=== PATIENT | female | born 1955 | race Caucasian/White ===

== ENCOUNTER 2016-10-17 08:54 | Outpatient (CLI) | payer OTHER ==
[~2016-10-17 08:54] MED LIST: /AUGM875TA OR; /FENT50PA TD; /HALO1T OR; /QUET25TA PO; ACET65TA OR; ARTISOL10 OU; ATIV1TAB2 OR; ATRO0.06; ATRO0.06 INH; BENA25TA4 PO; BISA10SU2 RE; CARD180T PO; CARD60TA OR; CELE40TA OR; CELE40TA PO; CHEMOTHERAPY; CHLO0.124 SSP; CHLO25TA3 PO; CLIN300C PO; CODE15TA OR; CODE15TA PO; COLA100C2 OR; COLA100C2 PO; DECADRON PO; DOCU10ELUD PO; DOXY100T OR; DOXY100T PO; FAMCICLOVIR OR; FENT100D25 TD; GABA100C PO; GAMMA GLOBULIN IV; KEFL500C PO; LANS30CA PO; LOPR50TA OR; MAGN500T2 OR; MAGN500T2 PO; MEGA40SU OR; MEGA40SU PO; MILKSUS OR; MIRALEX OR; MIRALEX PO; MUCI600T34 PO; MUCU400T2 OR; MUCU400T2 PO; Magnesium Oxide PO; PAIN325T PO; PERC5TAB8 OR; PERC7.5T12 PO; PERC7.5T8 OR; PERCOCET PO; PREV15CA OR; PREV30CA6 PO; PREVACID PO; PULM0.5S IN; PULMOZYME INH; REVL20CA PO; SENN8.6T5 OR; SILVADENE; TESS100C OR; TESS100C PO; VALCADE IV; VICO5TAB OR; XANA0.25 OR; XOPE1.252 IN; ZOMETA IV; [UNRECOGNIZED DRUG - CODE] IV; [UNRECOGNIZED DRUG - OTHER]; [UNRECOGNIZED DRUG - OTHER]; [UNRECOGNIZED DRUG - OTHER] IV; chlorthalidone PO
[2016-10-17] MEDS ORDERED: SODIUM CHLORIDE 0.9% INJ 10 ML SYR IV SCH (09:00)
[2016-10-17] MEDS ORDERED: ACETAMINOPHEN TAB 650MG DOSE (2X325MG) PO ONE (09:15)
[2016-10-17] MEDS ORDERED: IMMUNE GLOBULIN 10% 10 GM in APPROPRIATE DILUENT 1 EA IV ONE (09:15)
[2016-10-17] MEDS ORDERED: diphenhydrAMINE 25 MG CAP PO ONE (09:15)
[2016-10-17] MEDS ORDERED: IMMUNE GLOBULIN 10% 20 GM in APPROPRIATE DILUENT 1 EA IV ONE (09:15)
== END 2016-10-17 12:30 | disposition home or self-care (01) ==
LOC: M INFU 08:54
PROVIDERS: ATTEND Internal Medicine Medical Oncology
DX: C90.00 Multiple myeloma not having achieved remission (principal)
CPT/HCPCS: 96365; 96366; J1568

== ENCOUNTER → 2016-11-01 | Outpatient (REF) | payer OTHER ==
[2016-11-01 15:01] LABS: IMMUNOGLOBULIN A 44.2 MG/DL (70-400); IMMUNOGLOBULIN G 952 MG/DL (681-1648); TOTAL PROTEIN 5.9 GM/DL (6.4-8.2)
[2016-11-01 16:04] LABS: IMMUNOGLOBULIN M 6.55 MG/DL (40-230)
[2016-11-03 00:06] LABS: FREE KAPPA LIGHT CHAINS SERUM 11.24 mg/L (3.30-19.40); FREE LAMBDA LIGHT CHAINS SERUM 39.89 mg/L (5.71-26.30); KAPPA/LAMBDA RATIO SERUM 0.28 (0.26-1.65)
[2016-11-03 08:06] LABS: BETA 2 MICROGLOBULIN 1.9 mg/L (0.6-2.4); IMMUNOGLOBULIN D 58.3 mg/dL (<14.11)
[2016-11-05 12:54] LABS: ALBUMIN 3.33 GM/DL (3.29-5.55); ALBUMIN % 56.5 % (55.8-66.1); GAMMA GLOBULIN % 16.2 % (11.1-18.8)
== END | disposition home or self-care (01) ==
LOC: M LAB REF 13:21
PROVIDERS: ATTEND Internal Medicine Medical Oncology
DX: C90.00 Multiple myeloma not having achieved remission (principal)

== ENCOUNTER 2016-11-13 08:56 | Outpatient (CLI) | payer OTHER ==
[~2016-11-13] VITALS: Ht 167.6 cm; Wt 60.9 kg
[~2016-11-13 08:56] MED LIST changes: +ACETAMINOPHEN TAB 650MG DOSE (2X325MG) PO ONE; +diphenhydrAMINE 25 MG CAP PO ONE
[2016-11-13] MEDS ORDERED: IMMUNE GLOBULIN 10% 20 GM in APPROPRIATE DILUENT 1 EA IV ONE (09:00)
[2016-11-13] MEDS ORDERED: SODIUM CHLORIDE 0.9% INJ 10 ML SYR IV SCH (09:00)
[2016-11-13] MEDS ORDERED: IMMUNE GLOBULIN 10% 10 GM in APPROPRIATE DILUENT 1 EA IV ONE (10:00)
== END 2016-11-13 11:45 | disposition home or self-care (01) ==
LOC: M INFU 08:56
PROVIDERS: ATTEND Internal Medicine Medical Oncology
DX: C90.00 Multiple myeloma not having achieved remission (principal)
CPT/HCPCS: 96365; 96366; J1568

== ENCOUNTER → 2016-11-21 | Outpatient (REF) | payer OTHER ==
[~2016-11-21] MED LIST changes: -ACETAMINOPHEN TAB 650MG DOSE (2X325MG) PO ONE; -diphenhydrAMINE 25 MG CAP PO ONE
[2016-11-21 19:30] LABS: IMMUNOGLOBULIN A 40.1 MG/DL (70-400); IMMUNOGLOBULIN G 1140 MG/DL (681-1648); TOTAL PROTEIN 5.9 GM/DL (6.4-8.2)
[2016-11-21 20:17] LABS: IMMUNOGLOBULIN M < 5.3 MG/DL (40-230)
[2016-11-23 12:46] LABS: ALBUMIN 3.32 GM/DL (3.29-5.55); ALBUMIN % 56.3 % (55.8-66.1); GAMMA GLOBULIN % 19.3 % (11.1-18.8)
[2016-11-24 00:06] LABS: FREE KAPPA LIGHT CHAINS SERUM 10.65 mg/L (3.30-19.40); FREE LAMBDA LIGHT CHAINS SERUM 33.71 mg/L (5.71-26.30); KAPPA/LAMBDA RATIO SERUM 0.32 (0.26-1.65)
[2016-11-24 08:06] LABS: BETA 2 MICROGLOBULIN 1.9 mg/L (0.6-2.4); IMMUNOGLOBULIN D 32.5 mg/dL (<14.11)
== END | disposition home or self-care (01) ==
LOC: M LAB REF 16:25
PROVIDERS: ATTEND Internal Medicine Medical Oncology
DX: C90.00 Multiple myeloma not having achieved remission (principal)

== ENCOUNTER 2016-12-12 09:33 | Outpatient (CLI) | payer OTHER ==
[~2016-12-12] VITALS: Ht 167.6 cm; Wt 60.9 kg
[~2016-12-12 09:33] MED LIST changes: +ACETAMINOPHEN TAB 650MG DOSE (2X325MG) PO SCH; +IMMUNE GLOBULIN 10% 10 GM in APPROPRIATE DILUENT 1 EA IV ONE; +IMMUNE GLOBULIN 10% 20 GM in APPROPRIATE DILUENT 1 EA IV ONE; +SODIUM CHLORIDE 0.9% INJ 10 ML SYR IV SCH; +diphenhydrAMINE 25 MG CAP PO SCH
== END 2016-12-12 13:00 | disposition home or self-care (01) ==
LOC: M INFU 09:33
PROVIDERS: ATTEND Internal Medicine Medical Oncology
DX: C90.00 Multiple myeloma not having achieved remission (principal)
CPT/HCPCS: 96365; 96366; J1568

== ENCOUNTER → 2016-12-19 | Outpatient (REF) | payer OTHER ==
[~2016-12-19] MED LIST changes: -ACETAMINOPHEN TAB 650MG DOSE (2X325MG) PO SCH; -IMMUNE GLOBULIN 10% 10 GM in APPROPRIATE DILUENT 1 EA IV ONE; -IMMUNE GLOBULIN 10% 20 GM in APPROPRIATE DILUENT 1 EA IV ONE; -SODIUM CHLORIDE 0.9% INJ 10 ML SYR IV SCH; -diphenhydrAMINE 25 MG CAP PO SCH
[2016-12-19 14:50] LABS: IMMUNOGLOBULIN A 46.9 MG/DL (70-400); IMMUNOGLOBULIN G 1220 MG/DL (681-1648); TOTAL PROTEIN 6.1 GM/DL (6.4-8.2)
[2016-12-19 15:19] LABS: IMMUNOGLOBULIN M 5.68 MG/DL (40-230)
[2016-12-20 13:11] LABS: ALBUMIN % 55.7 % (55.8-66.1); GAMMA GLOBULIN % 19.6 % (11.1-18.8)
[2016-12-22 08:06] LABS: FREE KAPPA LIGHT CHAINS SERUM 12.07 mg/L (3.30-19.40); FREE LAMBDA LIGHT CHAINS SERUM 41.4 mg/L (5.71-26.30); KAPPA/LAMBDA RATIO SERUM 0.29 (0.26-1.65)
== END ==
LOC: M LAB REF 13:23
PROVIDERS: ATTEND Internal Medicine Medical Oncology
DX: C90.00 Multiple myeloma not having achieved remission (principal)

== ENCOUNTER → 2016-12-24 | Outpatient (CLI) | payer OTHER ==
[~2016-12-24] MED LIST changes: +ISOVUE-370 76% 100ML VIAL (Q9967) As Ordered ONE
--- NOTE | 2016-12-24 09:53 | REP ---
CT BRAIN WITHOUT AND WITH CONTRAST: 12/24/2016 COMPARISON: 12/27/2014, 10/16/2011. TECHNIQUE. Noncontrast images followed by infusion of 75 mL Isovue-370 and rescanning through the brain. CLINICAL HISTORY: Lytic skull lesion in a patient with known myeloma. FINDINGS: Ventricles are midline, symmetric, and their size proportionate to the mild diffuse cerebral atrophy. There is no midline shift. The basal ganglia and white matter tracts show no acute finding. There is no vascular territory infarct, intracranial hemorrhage, cerebral mass, or edema. The lytic lesion of the right parietal bone is again noted. It gain measures 4.5 x 2.5 x 4 cm in greatest diameter. There are multiple other smaller lesions in the extreme vertex that appearance is unchanged. Inner table is thinned and eroded. Study again shows some very slight mass effect on the adjacent parietal lobe. There is no intracranial hemorrhage. I do not see significant enhancement of the lesion. The adjacent scalp was grossly intact. Mastoids, sinuses, and skull base without acute findings. The cerebellum and cisterna magna, as well as the brainstem are grossly intact. Basal cisterns intact. I do not see any abnormal enhancement. The vascularity is grossly intact on the contrast images, and there is no abnormal meningeal enhancement or gyriform enhancement. Orbits and contents grossly intact. IMPRESSION: 1. There is a lytic parietal bone lesion in the right hemisphere 4.5 x 4 x 2.5 cm, this is grossly unchanged and has mild mass effect on the adjacent parietal lobe. There are other scattered lytic lesions in the vertex of the skull. These were all much smaller than the main lesion. No intracranial hemorrhage, infarct, edema, or mass. No abnormal enhancement. Essentially stable examination. Signed by Delmer Landon MD 12/24/2016 05:08 P
== END ==
LOC: M RAD 08:10
PROVIDERS: ATTEND Psychiatry & Neurology Neurology
DX: R93.0 Abnormal findings on diagnostic imaging of skull and head, not elsewhere classified (principal)
CPT/HCPCS: 70470; Q9967

== ENCOUNTER 2017-01-16 08:35 | Outpatient (CLI) | payer OTHER ==
[~2017-01-16] VITALS: Ht 167.6 cm; Wt 60.9 kg
[~2017-01-16 08:35] MED LIST changes: +ACETAMINOPHEN TAB 650MG DOSE (2X325MG) PO SCH; +diphenhydrAMINE 25 MG CAP PO SCH
[2017-01-16] MEDS ORDERED: SODIUM CHLORIDE 0.9% INJ 10 ML SYR IV SCH (09:00)
[2017-01-16] MEDS ORDERED: IMMUNE GLOBULIN 10% 10 GM in APPROPRIATE DILUENT 1 EA IV ONE (09:00)
[2017-01-16] MEDS ORDERED: IMMUNE GLOBULIN 10% 20 GM in APPROPRIATE DILUENT 1 EA IV ONE (09:00)
== END 2017-01-16 12:00 | disposition home or self-care (01) ==
LOC: M INFU 08:35
PROVIDERS: ATTEND Internal Medicine Medical Oncology
DX: C90.00 Multiple myeloma not having achieved remission (principal)
CPT/HCPCS: 96365; 96366; J1568

== ENCOUNTER → 2017-01-16 | Outpatient (REF) | payer OTHER ==
[~2017-01-16] MED LIST changes: -ISOVUE-370 76% 100ML VIAL (Q9967) As Ordered ONE
[2017-01-16 14:21] LABS: IMMUNOGLOBULIN A 46.5 MG/DL (70-400); IMMUNOGLOBULIN G 784 MG/DL (681-1648); TOTAL PROTEIN 5.9 GM/DL (6.4-8.2)
[2017-01-16 14:49] LABS: IMMUNOGLOBULIN M < 5.3 MG/DL (40-230)
[2017-01-17 14:03] LABS: ALBUMIN 3.39 GM/DL (3.29-5.55); ALBUMIN % 57.4 % (55.8-66.1); GAMMA GLOBULIN % 13.5 % (11.1-18.8)
[2017-01-18 08:06] LABS: BETA 2 MICROGLOBULIN 1.7 mg/L (0.6-2.4); FREE KAPPA LIGHT CHAINS SERUM 10.31 mg/L (3.30-19.40); FREE LAMBDA LIGHT CHAINS SERUM 42.88 mg/L (5.71-26.30); KAPPA/LAMBDA RATIO SERUM 0.24 (0.26-1.65)
== END ==
LOC: M LAB REF 12:47
PROVIDERS: ATTEND Internal Medicine Medical Oncology
DX: C90.00 Multiple myeloma not having achieved remission (principal)

== ENCOUNTER → 2017-02-18 | Outpatient (REF) | payer OTHER ==
[~2017-02-18] MED LIST changes: -ACETAMINOPHEN TAB 650MG DOSE (2X325MG) PO SCH; -diphenhydrAMINE 25 MG CAP PO SCH
[2017-02-18 14:14] LABS: IMMUNOGLOBULIN A 56.3 MG/DL (70-400); IMMUNOGLOBULIN G 825 MG/DL (681-1648)
[2017-02-18 15:14] LABS: IMMUNOGLOBULIN M < 5.3 MG/DL (40-230)
[2017-02-21 00:06] LABS: BETA 2 MICROGLOBULIN 2.4 mg/L (0.6-2.4); FREE KAPPA LIGHT CHAINS SERUM 11.2 mg/L (3.30-19.40); FREE LAMBDA LIGHT CHAINS SERUM 100.65 mg/L (5.71-26.30); KAPPA/LAMBDA RATIO SERUM 0.11 (0.26-1.65)
== END ==
LOC: M LAB REF 12:50
PROVIDERS: ATTEND Internal Medicine Medical Oncology
DX: C90.00 Multiple myeloma not having achieved remission (principal)

== ENCOUNTER 2017-02-22 08:54 | Outpatient (CLI) | payer OTHER ==
[2017-02-22] MEDS ORDERED: SODIUM CHLORIDE 0.9% INJ 10 ML SYR IV SCH (09:00)
[2017-02-22] MEDS ORDERED: diphenhydrAMINE 25 MG CAP PO ONE (09:15)
[2017-02-22] MEDS ORDERED: IMMUNE GLOBULIN 10% 10GM 100ML 10 GM in APPROPRIATE DILUENT 1 EA IV ONE (09:15)
[2017-02-22] MEDS ORDERED: ACETAMINOPHEN TAB 650MG DOSE (2X325MG) PO ONE (09:15)
[2017-02-22] MEDS ORDERED: IMMUNE GLOBULIN 10% 20GM 200ML 20 GM in APPROPRIATE DILUENT 1 EA IV ONE (09:15)
== END 2017-02-22 13:00 | disposition home or self-care (01) ==
LOC: M INFU 08:54
PROVIDERS: ATTEND Internal Medicine Medical Oncology
DX: C90.00 Multiple myeloma not having achieved remission (principal); Z79.891 Long term (current) use of opiate analgesic; Z79.899 Other long term (current) drug therapy
CPT/HCPCS: 96365; 96366; J1569

== ENCOUNTER 2017-02-27 12:54 | Inpatient (IN) | payer OTHER ==
[~2017-02-27] VITALS: Ht 144.8 cm; Wt 52.3 kg
[2017-02-27 14:00] LABS: BASO % 0.3 % (0.0-1.0); EOS # 0.1 K/mm3 (0.0-0.50); EOS % 0.9 % (0.0-3.0); LARGE UNSTAINED CELL % 0.3 % (0.0-4.0); LYMPH # 0.2 K/mm3 (1.5-4.5); MEAN CORPUSCULAR HGB CONC 31.6 g/dl (32.0-36.5); MEAN CORPUSCULAR VOLUME 94.8 fl (80.0-96.0); MONO # 0.1 K/mm3 (0.0-0.8); MONO % 0.9 % (0.0-5.0); NEUTROPHILS # 6.5 K/mm3 (1.8-7.7); NEUTROPHILS % 94.7 % (36.0-66.0); PLATELET COUNT, AUTOMATED 166 k/mm3 (150-450); RED CELL DISTRIBUTION WIDTH 14.2 % (11.5-14.5); WHITE BLOOD COUNT 6.9 K/mm3 (4.0-10.0)
--- NOTE | 2017-02-27 14:08 | REP ---
Clinical: Fever. Comparison: 04/18/2016. Findings: Examination is limited by portable technique, positioning, and underpenetration. Old healed bilateral rib fractures are again identified along with chronic interstitial changes. Mediastinum and cardiac silhouette are stable. Central venous catheter with tip in the SVC again noted. No obvious acute consolidation, effusion, or pneumothorax. Impression: Chronic stable changes. No obvious acute cardiopulmonary process. Signed by Augustine Bennett MD 02/27/2017 02:00 P
[2017-02-27] MEDS ORDERED: NS IV ONE (14:30)
[2017-02-27] MEDS ORDERED: DILUENT IV ONE (14:30)
[2017-02-27] MEDS ORDERED: ACETAMINOPHEN 325 MG TAB PO ONE ×2 (14:45)
[2017-02-27] MEDS ORDERED: ACETAMINOPHEN 325 MG TAB As Ordered ONE (14:46)
[2017-02-27] MEDS ORDERED: CEFEPIME HCL 2 GM in D5W MINI-BAG PLUS 50 ML IV ONE (15:00)
[2017-02-27 16:47] LABS: ALBUMIN 2.6 GM/DL (3.2-5.2); ALBUMIN/GLOBULIN RATIO 0.87 (1.00-1.93); ALKALINE PHOSPHATASE 42 U/L (45-117); ALT/SGPT 12 U/L (12-78); ANION GAP 3 MEQ/L (8-16); AST/SGOT 12 U/L (15-37); BILIRUBIN,DIRECT < 0.1 MG/DL (0.0-0.2); BILIRUBIN,TOTAL 0.3 MG/DL (0.2-1.0); BLOOD UREA NITROGEN 15 MG/DL (7-18); CALCIUM LEVEL 7.6 MG/DL (8.5-10.1); CARBON DIOXIDE LEVEL 31 MEQ/L (21-32); CHLORIDE LEVEL 105 MEQ/L (98-107); CREATININE FOR GFR 0.86 MG/DL (0.55-1.02); GLOMERULAR FILTRATION RATE > 60.0 (>51); GLUCOSE, FASTING 114 MG/DL (70-105); POTASSIUM SERUM 3.9 MEQ/L (3.5-5.1); SODIUM LEVEL 139 MEQ/L (136-145); TOTAL PROTEIN 5.6 GM/DL (6.4-8.2)
[2017-02-27] MEDS ORDERED: ONDANSETRON 4MG/2ML VIAL (J2405) IV PRN (17:15)
[2017-02-27] MEDS ORDERED: fentaNYL 100 MCG/HR PATCH TOP ONE (17:15)
[2017-02-27] MEDS ORDERED: FENTANYL REMOVAL DOCUMENTATION MISC XX SCH (17:15)
[2017-02-27] MEDS ORDERED: PERCOCET 5MG/325MG TAB PO PRN ×2 (17:15)
[2017-02-27] MEDS ORDERED: MAGN400T5 PO (17:56)
[2017-02-27] MEDS ORDERED: SERO1TAB3 PO (17:56)
[2017-02-27] MEDS ORDERED: DEXA4TA PO (17:56)
[2017-02-27] MEDS ORDERED: ONDA1TAB15 PO (17:56)
[2017-02-27] MEDS ORDERED: GABA-279 PO (17:56)
[2017-02-27] MEDS ORDERED: [UNRECOGNIZED DRUG - CODE] IV (17:56)
[2017-02-27] MEDS ORDERED: REVL10CA2 PO (17:56)
[2017-02-27] MEDS ORDERED: COLA100C3 PO (17:56)
[2017-02-27] MEDS ORDERED: ASPI1TAB PO (17:56)
[2017-02-27] MEDS ORDERED: GAMMA GLOBULIN IV (17:56)
[2017-02-27] MEDS ORDERED: LANS30CA PO (17:56)
[2017-02-27] MEDS ORDERED: DURA100D2 TD (17:56)
[2017-02-27] MEDS ORDERED: METO50TA2 PO (17:56)
[2017-02-27] MEDS ORDERED: PERI0.126 SSP (17:56)
[2017-02-27] MEDS ORDERED: BUDE0.5S6 INH (17:56)
[2017-02-27] MEDS ORDERED: GUAI1TAB PO (17:56)
[2017-02-27] MEDS ORDERED: LEVA12INH INH (17:56)
[2017-02-27] MEDS ORDERED: PERC10TA17 PO (17:56)
[2017-02-27] MEDS ORDERED: CITA40TA4 PO (17:56)
[2017-02-27] MEDS ORDERED: LEVALBUTEROL 1.25 MG/0.5 ML CONCENTRATE NEB INH PRN (19:15)
[2017-02-27] MEDS ORDERED: QUEtiapine FUMARATE 25 MG TAB PO PRN (19:15)
[2017-02-27 19:45] VITALS: BP 96/58
[2017-02-27] MEDS: METOPROLOL TART 12.5 MG PER 1/2 TAB PO SCH (19:53)
--- NOTE | 2017-02-27 20:50 | HPE ---
DATE OF ADMISSION: 02/27/2017 PRIMARY CARE PROVIDER: Dr. Corby Bahnea [facility]. ONCOLOGY, Dr. Christa Howell, [facility], Dr. Zambrano, [facility] CHIEF COMPLAINT: Patient presented today in emergency room for an episode of chills and shakes in the house this afternoon at around 1:00. 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 History of [place] chorea complicating treatment during initial presentation. History of flail chest requiring permanent tracheostomy during initial presentation for multiple myeloma, history of extensive skeletal involvement, hypercalcemia, renal failure during the initial diagnosis of multiple myeloma, hypertension osteoporosis, history of right upper extremity deep vein thrombosis in 2010 status post six months of Coumadin. 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 History of actinomycosis of the jaw, which was treated before. HISTORY OF PRESENT ILLNESS: This is a 61-year-old female with the above complicated past medical history who recently had a secondary infection of the necrotic jaw and was treated a 10 day course of Bactrim DS, which she finished on the February. This afternoon she developed an episode of shakes and chills so she was brought to the emergency room. In the emergency department (ED) she was found to febrile to 102.4. Patient's UA was very dirty containing innumerable WBCs, and lactic acid was elevated to 2.2. Patient also recently had bone marrow biopsy done on the February at [facility] by Dr. Zambrano for rising levels of IgD in the blood and a new small in spike which was concerning to the oncologist for recurrence of her myeloma. In view of her chronic severe immunosuppressed state, patient is being admitted for urinary tract infection to the hospitalist service. PAST SURGICAL HISTORY: 1. Percutaneous endoscopic gastrostomy tube insertion placement and removal. Status post tracheostomy. 2. History of eye surgery. SOCIAL HISTORY: Does not drink, abuse alcohol or smoke. ALLERGIES: Patient is allergic to PENICILLIN, <<7:52>> LORAZEPAM, ALPRAZOLAM. FAMILY HISTORY: Nothing significant. REVIEW OF SYSTEMS: Patient denied any cough or phlegm . Denied any abdominal pain, nausea, vomiting or diarrhea. Denied any dysuria, hematuria or difficulty in urination. Patient does have chronic pain and for which she is on chronic pain medications. PHYSICAL EXAMINATION: VITAL SIGNS: Temperature 99.9, pulse 78m respiratory rate 18, blood pressure 97/55, pulse oximetry 94% on room air. GENERAL: Patient awake, alert, oriented times three laying down in bed in no acute distress. HEENT: Normocephalic, atraumatic. Has a tracheostomy in place. CHEST: There is severe kyphosed scoliosis present, otherwise clear to auscultation. Bilateral breath sounds. CARDIOVASCULAR: S1, S2 regular. There is a systolic murmur present. ABDOMEN: Soft, non-tender, bowel sounds present. EXTREMITIES: No edema. LABORATORY DATA: WBC 6.9, hemoglobin 10.7, platelet 1626, sodium 139, potassium 3.9, chloride 105, bicarbonate 31, BUN 15, creatinine 0.8, glucose 114, lactate 2.2, follow up lactate was 1.9, calcium 12.6. Liver function tests are normal. IMAGING: Chest x-ray: Chronic stable changes. No obvious acute cardiopulmonary process. UA shows innumerable WBCs, 3+ leukocyte esterase, 1+ blood. Urinary nitrate positive. Urine culture and blood cultures have been ordered. ASSESSMENT AND PLAN: This is a 61-year-old female admitted for urinary tract infection. PLAN: For urinary tract infection we will continue the patient on ceftriaxone. Await urine culture and adjust antibiotics accordingly. IgD lambda multiple myeloma. Patient follows with oncologist, Dr. Zambrano at [facility], as well as Dr. Christa Howell here. Patient is currently on chemotherapy with Revlimid, dexamethasone, elotuzumab. Recently had bone marrow biopsy on 02/25/2017. The results have been reviewed and copy of the results are in the chart. Severe restrictive lung disease due to severe kyphosed scoliosis, has tracheostomy in place. Will continue with tracheostomy care. Chronic pain. We will continue with home regimen of pain medications. Severe immunodeficiency and hypogammaglobinemia. Patient gets IVIg once a month. History of hypertension. However at present, patients blood pressure is low-normal. So, will give lower dose of metoprolol with hold parameters. Depression. We will continue with citalopram and Seroquel. Deep vein thrombosis prophylaxis has been ordered. <<13:15>> prophylaxis has been ordered.
[2017-02-27] MEDS ORDERED: fentaNYL 100 MCG/HR PATCH TD SCH (21:00)
[2017-02-27] MEDS: ASPIRIN 81 MG ENTERIC TAB PO SCH (21:47)
[2017-02-27] MEDS: guaiFENesin ER 600 MG TAB PO SCH (21:47)
[2017-02-27] MEDS: GABAPENTIN 100 MG CAP PO SCH (21:47)
[2017-02-27] MEDS: NS 1,000 ML IV SCH (21:47)
[2017-02-27] MEDS: SENOKOT S TAB PO SCH (21:47)
[2017-02-27] MEDS: CHLORHEXIDINE GLUCONATE 0.12 % 15ML UDC (PERIDEX ORAL RINSE) SSP SCH (22:17)
[2017-02-28] MEDS ORDERED: NORCO, ANEXSIA 5/325MG TABLET (HYDROcodone/ACETAMINOPHEN) PO PRN (03:30)
[2017-02-28] MEDS: PERCOCET 5MG/325MG TAB PO PRN ×3 (03:41→21:06)
[2017-02-28 06:00] VITALS: BP 99/52
[2017-02-28 06:19] LABS: BASO % 0.7 % (0.0-1.0); EOS # 0.1 K/mm3 (0.0-0.50); EOS % 2.5 % (0.0-3.0); LYMPH # 0.3 K/mm3 (1.5-4.5); LYMPH % 9.3 % (24.0-44.0); MEAN CORPUSCULAR HEMOGLOBIN 30.6 pg (27.0-33.0); MEAN CORPUSCULAR HGB CONC 32.7 g/dl (32.0-36.5); MEAN CORPUSCULAR VOLUME 93.6 fl (80.0-96.0); MONO # 0.2 K/mm3 (0.0-0.8); MONO % 5.4 % (0.0-5.0); NEUTROPHILS % 81.1 % (36.0-66.0); PLATELET COUNT, AUTOMATED 100 k/mm3 (150-450); RED CELL DISTRIBUTION WIDTH 14.4 % (11.5-14.5); WHITE BLOOD COUNT 3.6 K/mm3 (4.0-10.0)
[2017-02-28 06:37] LABS: ANION GAP 6 MEQ/L (8-16); BLOOD UREA NITROGEN 12 MG/DL (7-18); CALCIUM LEVEL 7.6 MG/DL (8.5-10.1); CARBON DIOXIDE LEVEL 25 MEQ/L (21-32); CHLORIDE LEVEL 109 MEQ/L (98-107); CREATININE FOR GFR 0.73 MG/DL (0.55-1.02); GLOMERULAR FILTRATION RATE > 60.0 (>51); GLUCOSE, FASTING 80 MG/DL (70-105); POTASSIUM SERUM 3.8 MEQ/L (3.5-5.1); SODIUM LEVEL 140 MEQ/L (136-145)
[2017-02-28] MEDS: METOPROLOL TART 12.5 MG PER 1/2 TAB PO SCH ×2 (09:00→21:00)
[2017-02-28] MEDS: SENOKOT S TAB PO SCH ×2 (09:00→21:00)
[2017-02-28] MEDS: fentaNYL 100 MCG/HR PATCH TD SCH (09:00)
[2017-02-28] MEDS: MAGNESIUM OXIDE 400 MG TAB (MAG-OX) PO SCH (09:44)
[2017-02-28] MEDS: GABAPENTIN 100 MG CAP PO SCH ×2 (09:44→21:07)
[2017-02-28] MEDS: CitaloPRAM (CeleXA) 20 MG TAB PO SCH (09:44)
[2017-02-28] MEDS: NS 1,000 ML IV SCH (09:45)
[2017-02-28] MEDS: CHLORHEXIDINE GLUCONATE 0.12 % 15ML UDC (PERIDEX ORAL RINSE) SSP SCH ×2 (09:45→21:07)
[2017-02-28] MEDS: guaiFENesin ER 600 MG TAB PO SCH ×2 (09:45→21:06)
--- NOTE | 2017-02-28 13:27 | IPNPDOC ---
Subjective Date Seen The patient was seen on 02/28/17. Subjective Chief Complaint/HPI The patient is a 61-year-old female admitted with a reason for visit of Multiple Myeloma; Uti. General: Denies: ROS Unobtainable, Chills, Night Sweats, Fatigue, Malaise, Normal Appetite, Other Symptoms Constitutional: Denies: Chills, Fever, Malaise, Night Sweats, Weakness, Fatigue , Weight Loss, Lethargy, Other Eyes: Denies: Pain, Vision change, Conjunctivae inflammation, Eyelid inflammation, Redness, Other ENT: Denies: Head Aches, Ear Pain, Dysphagia, Sinus Congestion, Post Nasal Drip , Sore Throat, Epistaxis, Other Symptoms Skin: Denies: Rash, Lesions, Jaundice, Bruising, Itching, Dry, Breakdown, Nail Changes, Other Pulmonary: Denies: Dyspnea, Cough, Pleuritic Chest Pain, Other Symptoms Cardiovascular: Denies: Chest Pain, Palpitations, Orthopnea, Paroxysmal Noc. Dyspnea, Edema, Lt Headedness, Other Symptoms Gastrointestinal: Denies: Nausea, Vomiting, Abdominal Pain, Diarrhea, Constipation, Melena, Hematochezia, Other Symptoms Genitourinary: Denies: Dysuria, Frequency, Incontinence, Hematuria, Retention, Other Symptoms Objective Physical Examination General Exam: Positive: Alert, Cooperative, No Acute Distress Eye Exam: Positive: PERRLA, Conjunctiva & lids normal, EOMI ENT Exam: Positive: Atraumatic Chest Exam: Positive: Clear to auscultation, Normal air movement Heart Exam: Positive: Rate Normal, Regular Rhythm, Murmurs Abdomen Exam: Positive: Normal bowel sounds, Soft, Negative: Tenderness Extremity Exam: Positive: Other (severe kyphosis), Negative: Edema Psych Exam: Positive: Oriented x 3 Assessment /Plan Problems (1) Bacteremia Status: Acute Discussed With: Patient Problem Specific Plan: Monitor Clinically, Repeat Labs Problem Text: Continue with cefepime. 2/2 + G- rods, repeat cultures pending (2) Multiple myeloma Status: Chronic Discussed With: Certified Orthoptist, Patient Problem Specific Plan: Consult Specialist, Monitor Clinically, Repeat Labs Problem Text: IgD lambda MM, follows Dr. Zambrano at [place], and Dr. Howell Recent BM Bx noted - 02/25/17 Currently receiving chemo - Revlimid, elotuzumab, dexamethasone (3) Hypogammaglobulinemia Status: Chronic Discussed With: Patient Problem Specific Plan: Monitor Clinically Problem Text: Receives monthly IVIG infusions (4) UTI (urinary tract infection) Status: Acute Discussed With: Patient Problem Specific Plan: Monitor Clinically, Repeat Labs Problem Text: Cultures pending. Receiving cefepime as per bacteremia (5) Chronic pain Status: Chronic Discussed With: Patient Problem Specific Plan: Monitor Clinically Problem Text: Home fentanyl patch on hold for now given low blood pressures patient states typical SBP in the high 90s Can resume if needed, or adjust orals (6) Restrictive lung disease Status: Chronic Discussed With: Patient Problem Specific Plan: Monitor Clinically Problem Text: Secondary to severe kyphosis, s/p trach - continue trach care complicated with rib fx, hx flail chest s/p trach (7) Depression Status: Chronic Discussed With: Patient Problem Specific Plan: Monitor Clinically Problem Text: continue citalopram and seroquel (8) Osteonecrosis Status: Acute Discussed With: Patient Problem Specific Plan: Monitor Clinically Problem Text: 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 - after 2 years Rx zoledronic acid [id number] Hx actinomycosis of mandible (9) HTN (hypertension) Status: Chronic Discussed With: Patient Problem Specific Plan: Monitor Clinically Problem Text: home antihypertensives currently on hold secondary to hypotension (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 Discussed With: Patient Problem Specific Plan: Monitor Clinically Problem Text: Secondary to prolonged intubation with permanent trach (11) DVT (deep venous thrombosis) Status: Resolved Problem Text: History of RUE DVT - 2010 s/p coumadin x 6 months Plan/VTE VTE Prophylaxis Ordered?: Yes Plan IVF: Decrease Diet: Continue Current Activity: Continue Current Medications: Start Antibiotics Diagnostics: Repeat Labs in AM, Obtain Cultures Anticipated Discharge: Home VS, I&O, 24H, Adriane Vital Signs/I&O Vital Signs Date Time Temp Pulse Resp B/P (MAP) Pulse Ox O2 Delivery O2 Flow Rate FiO2 02/28/17 10:50 18 02/28/17 06:00 97.3 73 99/52 (68) 94 Room Air I&O- Last 24 Hours up to 6 AM 02/28/17 06:00 Intake Total 675 ml Output Total 300 ml Balance 375 ml Laboratory Data 24H LABS Laboratory Tests 2 02/27/17 13:13: White Blood Count 6.9, Red Blood Count 3.58L, Hemoglobin 10.7L, Hematocrit 33.9L , Mean Corpuscular Volume 94.8, Mean Corpuscular Hemoglobin 30.0, Mean Corpuscular Hemoglobin Concent 31.6L, Red Cell Distribution Width 14.2, Platelet Count 166, Neutrophils (%) (Auto) 94.7H, Lymphocytes (%) (Auto) 3.0L, Monocytes (%) (Auto) 0.9, Eosinophils (%) (Auto) 0.9, Basophils (%) (Auto) 0.3, Neutrophils # (Auto) 6.5, Lymphocytes # (Auto) 0.2L, Monocytes # (Auto) 0.1, Eosinophils # (Auto) 0.1, Basophils # (Auto) 0.0, Large Unclassified Cells % 0.3 , Large Unclassified Cells # 0.0, Lactic Acid Level 2.2*H 02/27/17 15:00: Urine Appearance CLOUDYH, Urine Color YELLOW, Urine pH 6.0, Urine Specific [place] 1.015, Urine Protein 1+H, Urine Glucose (UA) NEGATIVE, Urine Ketones NEGATIVE, Urine Urobilinogen 0.2, Urine Bilirubin NEGATIVE, Urine Leukocyte Esterase 3+H, Urine Blood 1+H, Urine Nitrite POSITIVE, Urine WBC (Auto) TNTCH, Urine RBC (Auto) 10H, Urine Hyaline Casts (Auto) 0, Urine Bacteria (Auto) 3+H, Urine Squamous Epithelial Cells 0, Urine Mucus (Auto) SMALL, Urine Sperm (Auto) 02/27/17 16:12: Anion Gap 3L, Glomerular Filtration Rate > 60.0, Calcium Level 7.6L, Aspartate Amino Transf (AST/SGOT) 12L, Alanine Aminotransferase (ALT/SGPT) 12, Alkaline Phosphatase 42L, Total Bilirubin 0.3, Direct Bilirubin < 0.1, Total Protein 5.6L , Albumin 2.6L, Albumin/Globulin Ratio 0.87L 02/27/17 17:55: Lactic Acid Followup at 4 Hours 1.9 02/28/17 05:57: White Blood Count 3.6L, Red Blood Count 2.72L, Hemoglobin 8.3#L, Hematocrit 25.5L, Mean Corpuscular Volume 93.6, Mean Corpuscular Hemoglobin 30.6, Mean Corpuscular Hemoglobin Concent 32.7, Red Cell Distribution Width 14.4, Platelet Count 100L, Neutrophils (%) (Auto) 81.1H, Lymphocytes (%) (Auto) 9.3L, Monocytes (%) (Auto) 5.4H, Eosinophils (%) (Auto) 2.5, Basophils (%) (Auto) 0.7 , Neutrophils # (Auto) 3.0, Lymphocytes # (Auto) 0.3L, Monocytes # (Auto) 0.2, Eosinophils # (Auto) 0.1, Basophils # (Auto) 0.0, Large Unclassified Cells % 1.0 , Large Unclassified Cells # 0.0, Anion Gap 6L, Glomerular Filtration Rate > 60.0, Blood Urea Nitrogen 12, Creatinine 0.73, Sodium Level 140, Potassium Level 3.8, Chloride Level 109H, Carbon Dioxide Level 25, Calcium Level 7.6L CBC/BMP Laboratory Tests 02/27/17 13:13 Red Blood Count 3.58 L, Mean Corpuscular Volume 94.8, Mean Corpuscular Hemoglobin 30.0, Mean Corpuscular Hemoglobin Concent 31.6 L, Red Cell Distribution Width 14.2, Neutrophils (%) (Auto) 94.7 H, Lymphocytes (%) (Auto) 3.0 L, Monocytes (%) (Auto) 0.9, Eosinophils (%) (Auto) 0.9, Basophils (%) (Auto ) 0.3, Neutrophils # (Auto) 6.5, Lymphocytes # (Auto) 0.2 L, Monocytes # (Auto) 0.1, Eosinophils # (Auto) 0.1, Basophils # (Auto) 0.0 02/27/17 16:12 02/28/17 05:57 Red Blood Count 2.72 L, Mean Corpuscular Volume 93.6, Mean Corpuscular Hemoglobin 30.6, Mean Corpuscular Hemoglobin Concent 32.7, Red Cell Distribution Width 14.4, Neutrophils (%) (Auto) 81.1 H, Lymphocytes (%) (Auto) 9.3 L, Monocytes (%) (Auto) 5.4 H, Eosinophils (%) (Auto) 2.5, Basophils (%) ( Auto) 0.7, Neutrophils # (Auto) 3.0, Lymphocytes # (Auto) 0.3 L, Monocytes # ( Auto) 0.2, Eosinophils # (Auto) 0.1, Basophils # (Auto) 0.0, Calcium Level 7.6 L Microbiology Microbiology 02/28/17 Blood Culture, Received Pending 02/27/17 Blood Culture - Preliminary, Resulted 02/27/17 Blood Culture - Preliminary, Resulted 02/27/17 Influenza Virus Type A Antigen - Final, Complete 02/27/17 Influenza Virus Type B Antigen - Final, Complete 02/27/17 Urine Culture, Received Pending KATE ADHIKARI MD February 28, 2017 13:27
[2017-02-28 14:00] VITALS: BP 107/55
[2017-02-28] MEDS ORDERED: CEFEPIME HCL 2 GM in D5W MINI-BAG PLUS 50 ML IV SCH (15:00)
[2017-02-28] MEDS: ACETAMINOPHEN TAB 650MG DOSE (2X325MG) PO PRN (16:10)
[2017-02-28] MEDS: FENTANYL REMOVAL DOCUMENTATION MISC XX SCH (17:00)
--- NOTE | 2017-02-28 17:55 | CR ---
DATE OF CONSULTATION: 02/28/2017 Medical oncology/hematology inpatient consult. Dr. Ezio Min requested hematology/oncology consult for medical oncology management Marine Hawthorne is a 61-year-old woman with a history of IgD lambda, multiple myeloma diagnosed in 2009, currently on extended second-line therapy with elotuzumab / lenalidomide / dexamethasone supported by gammaglobulin every 4 weeks. She is admitted now with gram-negative sepsis defervesced on cefepime after developing rapid onset chills yesterday. She has a personal history of osteonecrosis of the jaw (ONJ) and recently was started on doxycycline by her primary care doctor for a suspected localized recurrence. She had also recently been seen at [facility] by Dr. Wliber Zambrano, bone marrow biopsy performed showing 4% plasma cell involvement. Though this was low burden of disease in the marrow, peripheral rising free lambda, IgD immunoglobulin, and new M spike on SPEP have all suggested progression of disease. In addition to the above mentioned drugs Marine is maintained on dexamethasone prescribed 8 mg by mouth weekly, she has been taking 10 mg by mouth weekly. Today she reports feeling generally better. She is tired. She received antibiotics earlier. Her Ezekiel has gone home. Blood cultures have grown out gram-negative rods. She is on isolation until speciation is completed. She denies any current shaking chills. She has been up and out of bed to go to the bathroom. She has no acute focal musculoskeletal pain, just some generalized back pain occasionally. Physical exam deferred. CURRENT VITAL SIGNS: Temperature 98.4, blood pressure 107/55, heart rate 74, respiratory rate 18, oxygen saturation 95%. LABORATORY DATA: WBC 3.6, hemoglobin 8.3, hematocrit 25.5, platelets 100, absolute neutrophil count 3000, creatinine 0.7, lactic acid on 02/27/2017 was 2.2, albumin 2.6, calcium appropriately corrects to 7.6. IMPRESSION: IgG multiple myeloma in early relapse with rising peripheral blood free light chains, M spike, and IgD with 4% plasma cells on recent bone marrow biopsy, now hospitalized with gram-negative sepsis, presenting with fever, chills, lactic acidosis. Defervesced on cefepime. PLAN/RECOMMENDATIONS: 1. According to Dr. Zambrano at [facility] ([facility]), Marine will be presented with several options for next line of treatment. For the present she should be off her active myeloma treatment with the exception of dexamethasone which, because of long-term maintenance, should be continued at the rate of 8-10 mg by mouth weekly. She also receives gammaglobulin every 4 weeks. With apologies I do not have the date of her left IVIG infusion but can obtain this tomorrow. Marine's also a good historian. I agree with current management of her sepsis. 2. Transfuse to maintain hemoglobin greater than 7 leukoreduced irradiated product. 3. Marine would like to postpone next week's RPCI appointment. I will coordinate that with Dr. Zambrano. 4. Acute new musculoskeletal pain should be investigated with plain x-rays but currently Marine is clinically stable from the myeloma standpoint. She is in a generalized relapse heralded by labs but largely asymptomatic except for left hip avascular necrosis (AVN) associated pain and occasional back discomfort. I will continue to follow intermittently as needed.
[2017-02-28] MEDS: ASPIRIN 81 MG ENTERIC TAB PO SCH (21:06)
[2017-02-28 22:00] VITALS: BP 123/79
[2017-03-01] MEDS: CEFEPIME HCL 2 GM in D5W MINI-BAG PLUS 50 ML IV SCH ×2 (02:49→15:53)
[2017-03-01] MEDS: NS 1,000 ML IV SCH (02:49)
[2017-03-01] MEDS: PERCOCET 5MG/325MG TAB PO PRN ×5 (04:17→22:25)
[2017-03-01 06:00] VITALS: BP 125/74
[2017-03-01 06:20] LABS: BASO % 0.9 % (0.0-1.0); EOS # 0.1 K/mm3 (0.0-0.50); EOS % 3.3 % (0.0-3.0); LARGE UNSTAINED CELL # 0.1 K/mm3 (0.0-0.4); LYMPH # 0.6 K/mm3 (1.5-4.5); LYMPH % 12.7 % (24.0-44.0); MEAN CORPUSCULAR HEMOGLOBIN 30.6 pg (27.0-33.0); MEAN CORPUSCULAR HGB CONC 32.1 g/dl (32.0-36.5); MEAN CORPUSCULAR VOLUME 95.5 fl (80.0-96.0); MONO # 0.3 K/mm3 (0.0-0.8); MONO % 6.6 % (0.0-5.0); NEUTROPHILS # 3.2 K/mm3 (1.8-7.7); NEUTROPHILS % 74.5 % (36.0-66.0); PLATELET COUNT, AUTOMATED 109 k/mm3 (150-450); RED CELL DISTRIBUTION WIDTH 14.5 % (11.5-14.5); WHITE BLOOD COUNT 4.3 K/mm3 (4.0-10.0)
[2017-03-01 06:34] LABS: ANION GAP 5 MEQ/L (8-16); BLOOD UREA NITROGEN 11 MG/DL (7-18); CALCIUM LEVEL 7.5 MG/DL (8.5-10.1); CARBON DIOXIDE LEVEL 24 MEQ/L (21-32); CHLORIDE LEVEL 111 MEQ/L (98-107); CREATININE FOR GFR 0.69 MG/DL (0.55-1.02); GLOMERULAR FILTRATION RATE > 60.0 (>51); GLUCOSE, FASTING 73 MG/DL (70-105); POTASSIUM SERUM 3.6 MEQ/L (3.5-5.1); SODIUM LEVEL 140 MEQ/L (136-145)
[2017-03-01] MEDS: CitaloPRAM (CeleXA) 20 MG TAB PO SCH (08:47)
[2017-03-01] MEDS: SENOKOT S TAB PO SCH ×3 (08:47→21:00)
[2017-03-01] MEDS: MAGNESIUM OXIDE 400 MG TAB (MAG-OX) PO SCH (08:47)
[2017-03-01] MEDS: GABAPENTIN 100 MG CAP PO SCH ×2 (08:47→20:15)
[2017-03-01] MEDS: guaiFENesin ER 600 MG TAB PO SCH ×2 (08:47→20:15)
[2017-03-01] MEDS: CHLORHEXIDINE GLUCONATE 0.12 % 15ML UDC (PERIDEX ORAL RINSE) SSP SCH ×2 (08:50→20:14)
[2017-03-01] MEDS: METOPROLOL TART 12.5 MG PER 1/2 TAB PO SCH ×2 (08:50→20:14)
--- NOTE | 2017-03-01 09:21 | IPNPDOC ---
Subjective Date Seen The patient was seen on 03/01/17. Subjective Chief Complaint/HPI The patient is a 61-year-old female admitted with a reason for visit of Multiple Myeloma; Uti. General: Denies: ROS Unobtainable, Chills, Night Sweats, Fatigue, Malaise, Normal Appetite, Other Symptoms Constitutional: Denies: Chills, Fever, Malaise, Night Sweats, Weakness, Fatigue , Weight Loss, Lethargy, Other Eyes: Denies: Pain, Vision change, Conjunctivae inflammation, Eyelid inflammation, Redness, Other ENT: Denies: Head Aches, Ear Pain, Dysphagia, Sinus Congestion, Post Nasal Drip , Sore Throat, Epistaxis, Other Symptoms Skin: Denies: Rash, Lesions, Jaundice, Bruising, Itching, Dry, Breakdown, Nail Changes, Other Pulmonary: Denies: Dyspnea, Cough, Pleuritic Chest Pain, Other Symptoms Cardiovascular: Denies: Chest Pain, Palpitations, Orthopnea, Paroxysmal Noc. Dyspnea, Edema, Lt Headedness, Other Symptoms Gastrointestinal: Denies: Nausea, Vomiting, Abdominal Pain, Diarrhea, Constipation, Melena, Hematochezia, Other Symptoms Genitourinary: Denies: Dysuria, Frequency, Incontinence, Hematuria, Retention, Other Symptoms Hematologic: Denies: Bruising, Bleeding Excessively, Petecchia, Purpura, Enlarged Lymph Nodes, Other Hematologic Endocrine: Denies: Polydipsia, Polyphagia, Polyuria, Heat Intolerance, Cold Intolerance, Other Endocrine Sx Musculoskeletal: Reports: Other Symptoms (left hip pain) Objective Physical Examination General Exam: Positive: Alert, Cooperative, No Acute Distress Eye Exam: Positive: PERRLA, Conjunctiva & lids normal, EOMI Chest Exam: Positive: Clear to auscultation, Normal air movement Heart Exam: Positive: Rate Normal, Regular Rhythm, Murmurs Abdomen Exam: Positive: Normal bowel sounds, Soft, Negative: Tenderness Extremity Exam: Positive: Other (severe kyphosis), Negative: Edema Psych Exam: Positive: Oriented x 3 Assessment /Plan Problems (1) Bacteremia Status: Acute Discussed With: Patient Problem Specific Plan: Monitor Clinically, Repeat Labs Problem Text: Continue with cefepime. 2/2 + G- rods, repeat cultures pending (2) Multiple myeloma Status: Chronic Discussed With: Adult Basic Studies Teacher, Patient Problem Specific Plan: Consult Specialist, Monitor Clinically, Repeat Labs Problem Text: IgD lambda MM, follows Dr. Zambrano at [place], and Dr. Howell Recent BM Bx noted - 02/25/17 Currently receiving chemo - Revlimid, elotuzumab, dexamethasone (3) Hypogammaglobulinemia Status: Chronic Discussed With: Patient Problem Specific Plan: Monitor Clinically Problem Text: Receives monthly IVIG infusions (4) UTI (urinary tract infection) Status: Acute Discussed With: Patient Problem Specific Plan: Monitor Clinically, Repeat Labs Problem Text: Cultures pending. Receiving cefepime as per bacteremia (5) Chronic pain Status: Chronic Discussed With: Patient Problem Specific Plan: Monitor Clinically Problem Text: Resuming fentanyl patch today patient states typical SBP in the high 90s (6) Restrictive lung disease Status: Chronic Discussed With: Patient Problem Specific Plan: Monitor Clinically Problem Text: Secondary to severe kyphosis, s/p trach - continue trach care complicated with rib fx, hx flail chest s/p trach (7) Depression Status: Chronic Discussed With: Patient Problem Specific Plan: Monitor Clinically Problem Text: continue citalopram and seroquel (8) Osteonecrosis Status: Acute Discussed With: Patient Problem Specific Plan: Monitor Clinically Problem Text: 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 - after 2 years Rx zoledronic acid [id number] Hx actinomycosis of mandible (9) HTN (hypertension) Status: Chronic Discussed With: Patient Problem Specific Plan: Monitor Clinically Problem Text: home antihypertensives currently on hold secondary to hypotension (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 Pending repeat blood cultures. IV abx - cefepime VS, I&O, 24H, Fishbone Vital Signs/I&O Vital Signs Date Time Temp Pulse Resp B/P (MAP) Pulse Ox O2 Delivery O2 Flow Rate FiO2 03/01/17 08:50 75 132/72 03/01/17 08:47 18 03/01/17 06:00 98.7 96 Room Air I&O- Last 24 Hours up to 6 AM 03/01/17 05:59 Intake Total 2465 ml Output Total 1300 ml Balance 1165 ml Laboratory Data 24H LABS Laboratory Tests 2 03/01/17 05:42: White Blood Count 4.3, Red Blood Count 3.04L, Hemoglobin 9.3L, Hematocrit 29.1L , Mean Corpuscular Volume 95.5, Mean Corpuscular Hemoglobin 30.6, Mean Corpuscular Hemoglobin Concent 32.1, Red Cell Distribution Width 14.5, Platelet Count 109L, Neutrophils (%) (Auto) 74.5H, Lymphocytes (%) (Auto) 12.7L, Monocytes (%) (Auto) 6.6H, Eosinophils (%) (Auto) 3.3H, Basophils (%) (Auto) 0.9 , Neutrophils # (Auto) 3.2, Lymphocytes # (Auto) 0.6L, Monocytes # (Auto) 0.3, Eosinophils # (Auto) 0.1, Basophils # (Auto) 0.0, Large Unclassified Cells % 2.0 , Large Unclassified Cells # 0.1, Anion Gap 5L, Glomerular Filtration Rate > 60.0, Blood Urea Nitrogen 11, Creatinine 0.69, Sodium Level 140, Potassium Level 3.6, Chloride Level 111H, Carbon Dioxide Level 24, Calcium Level 7.5L CBC/BMP Laboratory Tests 03/01/17 05:42 Red Blood Count 3.04 L, Mean Corpuscular Volume 95.5, Mean Corpuscular Hemoglobin 30.6, Mean Corpuscular Hemoglobin Concent 32.1, Red Cell Distribution Width 14.5, Neutrophils (%) (Auto) 74.5 H, Lymphocytes (%) (Auto) 12.7 L, Monocytes (%) (Auto) 6.6 H, Eosinophils (%) (Auto) 3.3 H, Basophils (%) (Auto) 0.9, Neutrophils # (Auto) 3.2, Lymphocytes # (Auto) 0.6 L, Monocytes # ( Auto) 0.3, Eosinophils # (Auto) 0.1, Basophils # (Auto) 0.0, Calcium Level 7.5 L Microbiology Microbiology 02/28/17 Blood Culture, Received Pending 02/28/17 Blood Culture, Received Pending 02/27/17 Blood Culture - Preliminary, Resulted 02/27/17 Blood Culture - Preliminary, Resulted 02/27/17 Influenza Virus Type A Antigen - Final, Complete 02/27/17 Influenza Virus Type B Antigen - Final, Complete 02/27/17 Urine Culture, Received Pending KATE ADHIKARI MD March 01, 2017 09:21
[2017-03-01] MEDS: fentaNYL 100 MCG/HR PATCH TD SCH (10:27)
[2017-03-01 14:00] VITALS: BP 128/60
[2017-03-01] MEDS: ASPIRIN 81 MG ENTERIC TAB PO SCH (20:15)
[2017-03-01] MEDS: ACETAMINOPHEN TAB 650MG DOSE (2X325MG) PO PRN (20:34)
[2017-03-01 22:00] VITALS: BP 118/71
[2017-03-02] MEDS: NS 1,000 ML IV SCH ×2 (00:23→19:58)
[2017-03-02] MEDS ORDERED: MORPHINE 2 MG/ML 1ML SYRINGE IV ONE ×2 (01:15→17:00)
[2017-03-02] MEDS ORDERED: diphenhydrAMINE 25 MG CAP PO ONE (01:15)
[2017-03-02] MEDS: PERCOCET 5MG/325MG TAB PO PRN ×5 (03:04→22:34)
[2017-03-02] MEDS: CEFEPIME HCL 2 GM in D5W MINI-BAG PLUS 50 ML IV SCH (03:05)
--- NOTE | 2017-03-02 03:30 | REPUSA ---
CLINICAL HISTORY: Pain. COMMENTS: There is no evidence for fracture or dislocation. No evidence for lytic or blastic lesions. There is no radiographic evidence for avascular necrosis. There are no obvious soft tissue abnormalities. IMPRESSION: No fracture or dislocation. Thank you for your kind referral of this patient.
[2017-03-02 05:44] LABS: BASO % 0.9 % (0.0-1.0); EOS # 0.1 K/mm3 (0.0-0.50); EOS % 1.9 % (0.0-3.0); LARGE UNSTAINED CELL # 0.1 K/mm3 (0.0-0.4); LARGE UNSTAINED CELL % 1.5 % (0.0-4.0); LYMPH # 0.5 K/mm3 (1.5-4.5); LYMPH % 9.7 % (24.0-44.0); MEAN CORPUSCULAR HEMOGLOBIN 30.8 pg (27.0-33.0); MEAN CORPUSCULAR HGB CONC 32.8 g/dl (32.0-36.5); MEAN CORPUSCULAR VOLUME 93.9 fl (80.0-96.0); MONO # 0.4 K/mm3 (0.0-0.8); MONO % 6.7 % (0.0-5.0); NEUTROPHILS # 4.4 K/mm3 (1.8-7.7); NEUTROPHILS % 79.3 % (36.0-66.0); PLATELET COUNT, AUTOMATED 110 k/mm3 (150-450); RED CELL DISTRIBUTION WIDTH 14.3 % (11.5-14.5); WHITE BLOOD COUNT 5.6 K/mm3 (4.0-10.0)
[2017-03-02 05:51] LABS: ANION GAP 6 MEQ/L (8-16); BLOOD UREA NITROGEN 12 MG/DL (7-18); CALCIUM LEVEL 7.7 MG/DL (8.5-10.1); CARBON DIOXIDE LEVEL 24 MEQ/L (21-32); CHLORIDE LEVEL 110 MEQ/L (98-107); CREATININE FOR GFR 0.69 MG/DL (0.55-1.02); GLOMERULAR FILTRATION RATE > 60.0 (>51); GLUCOSE, FASTING 75 MG/DL (70-105); POTASSIUM SERUM 3.7 MEQ/L (3.5-5.1); SODIUM LEVEL 140 MEQ/L (136-145)
[2017-03-02 06:00] VITALS: BP 144/82
[2017-03-02] MEDS: CHLORHEXIDINE GLUCONATE 0.12 % 15ML UDC (PERIDEX ORAL RINSE) SSP SCH ×3 (09:00→20:58)
[2017-03-02] MEDS: SENOKOT S TAB PO SCH ×4 (09:00→21:00)
[2017-03-02] MEDS: CitaloPRAM (CeleXA) 20 MG TAB PO SCH (09:04)
[2017-03-02] MEDS: GABAPENTIN 100 MG CAP PO SCH ×2 (09:04→20:58)
[2017-03-02] MEDS: guaiFENesin ER 600 MG TAB PO SCH ×2 (09:04→20:58)
[2017-03-02] MEDS: MAGNESIUM OXIDE 400 MG TAB (MAG-OX) PO SCH (09:04)
[2017-03-02] MEDS: METOPROLOL TART 12.5 MG PER 1/2 TAB PO SCH ×2 (09:05→20:59)
--- NOTE | 2017-03-02 11:50 | IPNPDOC ---
Subjective Date Seen The patient was seen on 03/02/17. Subjective Chief Complaint/HPI The patient is a 61-year-old female admitted with a reason for visit of Multiple Myeloma; Uti. General: Denies: ROS Unobtainable, Chills, Night Sweats, Fatigue, Malaise, Normal Appetite, Other Symptoms Constitutional: Denies: Chills, Fever, Malaise, Night Sweats, Weakness, Fatigue , Weight Loss, Lethargy, Other Eyes: Denies: Pain, Vision change, Conjunctivae inflammation, Eyelid inflammation, Redness, Other ENT: Denies: Head Aches, Ear Pain, Dysphagia, Sinus Congestion, Post Nasal Drip , Sore Throat, Epistaxis, Other Symptoms Skin: Denies: Rash, Lesions, Jaundice, Bruising, Itching, Dry, Breakdown, Nail Changes, Other Pulmonary: Denies: Dyspnea, Cough, Pleuritic Chest Pain, Other Symptoms Cardiovascular: Denies: Chest Pain, Palpitations, Orthopnea, Paroxysmal Noc. Dyspnea, Edema, Lt Headedness, Other Symptoms Gastrointestinal: Denies: Nausea, Vomiting, Abdominal Pain, Diarrhea, Constipation, Melena, Hematochezia, Other Symptoms Genitourinary: Denies: Dysuria, Frequency, Incontinence, Hematuria, Retention, Other Symptoms Hematologic: Denies: Bruising, Bleeding Excessively, Petecchia, Purpura, Enlarged Lymph Nodes, Other Hematologic Musculoskeletal: Reports: Leg Pain Objective Physical Examination General Exam: Positive: Alert, Cooperative, No Acute Distress Eye Exam: Positive: PERRLA, Conjunctiva & lids normal, EOMI Chest Exam: Positive: Clear to auscultation, Normal air movement, Other ( severe kyphosis) Heart Exam: Positive: Rate Normal, Regular Rhythm, Murmurs Abdomen Exam: Positive: Normal bowel sounds, Soft, Negative: Tenderness Extremity Exam: Negative: Edema Psych Exam: Positive: Oriented x 3 Assessment /Plan Problems (1) Bacteremia Status: Acute Discussed With: Patient Problem Specific Plan: Monitor Clinically, Repeat Labs Problem Text: Transition cefepime --> levaquin - BCx +ecoli repeat cx pending anticipating d/c in 24-48 hours with PO levaquin (2) Multiple myeloma Status: Chronic Discussed With: Disability Counselor, Patient Problem Specific Plan: Consult Specialist, Monitor Clinically, Repeat Labs Problem Text: IgD lambda MM, follows Dr. Zambrano at [place], and Dr. Pelham Recent BM Bx noted - 02/25/17 Currently receiving chemo - Revlimid, elotuzumab, dexamethasone (3) Hypogammaglobulinemia Status: Chronic Discussed With: Patient Problem Specific Plan: Monitor Clinically Problem Text: Receives monthly IVIG infusions (4) UTI (urinary tract infection) Status: Acute Discussed With: Patient Problem Specific Plan: Monitor Clinically, Repeat Labs Problem Text: Cultures +Ecoli. Receiving levaquin as per bacteremia (5) Chronic pain Status: Chronic Discussed With: Patient Problem Specific Plan: Monitor Clinically Problem Text: Resuming fentanyl patch today patient states typical SBP in the high 90s (6) Restrictive lung disease Status: Chronic Discussed With: Patient Problem Specific Plan: Monitor Clinically Problem Text: Secondary to severe kyphosis, s/p trach - continue trach care complicated with rib fx, hx flail chest s/p trach (7) Depression Status: Chronic Discussed With: Patient Problem Specific Plan: Monitor Clinically Problem Text: continue citalopram and seroquel (8) Osteonecrosis Status: Acute Discussed With: Patient Problem Specific Plan: Monitor Clinically Problem Text: 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 - after 2 years Rx zoledronic acid [id number] Hx actinomycosis of mandible (9) HTN (hypertension) Status: Chronic Discussed With: Patient Problem Specific Plan: Monitor Clinically Problem Text: home antihypertensives currently on hold secondary to hypotension (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 Discussed With: Patient Problem Specific Plan: Monitor Clinically Problem Text: Secondary to prolonged intubation with permanent trach (11) DVT (deep venous thrombosis) Status: Resolved Problem Text: History of RUE DVT - 2010 s/p coumadin x 6 months Plan/VTE VTE Prophylaxis Ordered?: Yes Plan IVF: Decrease Diet: Continue Current Activity: Continue Current Medications: Start Antibiotics Diagnostics: Repeat Labs in AM, Obtain Cultures Anticipated Discharge: Home VS, I&O, 24H, Fishbone Vital Signs/I&O Vital Signs Date Time Temp Pulse Resp B/P (MAP) Pulse Ox O2 Delivery O2 Flow Rate FiO2 03/02/17 11:35 Room Air 03/02/17 10:11 16 03/02/17 09:05 79 153/98 03/02/17 06:00 97.3 97 I&O- Last 24 Hours up to 6 AM 03/02/17 06:00 Intake Total 2145 ml Output Total 1275 ml Balance 870 ml Laboratory Data 24H LABS Laboratory Tests 2 03/02/17 05:28: White Blood Count 5.6, Red Blood Count 2.97L, Hemoglobin 9.1L, Hematocrit 27.9L , Mean Corpuscular Volume 93.9, Mean Corpuscular Hemoglobin 30.8, Mean Corpuscular Hemoglobin Concent 32.8, Red Cell Distribution Width 14.3, Platelet Count 110L, Neutrophils (%) (Auto) 79.3H, Lymphocytes (%) (Auto) 9.7L, Monocytes (%) (Auto) 6.7H, Eosinophils (%) (Auto) 1.9, Basophils (%) (Auto) 0.9 , Neutrophils # (Auto) 4.4, Lymphocytes # (Auto) 0.5L, Monocytes # (Auto) 0.4, Eosinophils # (Auto) 0.1, Basophils # (Auto) 0.0, Large Unclassified Cells % 1.5 , Large Unclassified Cells # 0.1, Anion Gap 6L, Glomerular Filtration Rate > 60.0, Blood Urea Nitrogen 12, Creatinine 0.69, Sodium Level 140, Potassium Level 3.7, Chloride Level 110H, Carbon Dioxide Level 24, Calcium Level 7.7L CBC/BMP Laboratory Tests 03/02/17 05:28 Red Blood Count 2.97 L, Mean Corpuscular Volume 93.9, Mean Corpuscular Hemoglobin 30.8, Mean Corpuscular Hemoglobin Concent 32.8, Red Cell Distribution Width 14.3, Neutrophils (%) (Auto) 79.3 H, Lymphocytes (%) (Auto) 9.7 L, Monocytes (%) (Auto) 6.7 H, Eosinophils (%) (Auto) 1.9, Basophils (%) ( Auto) 0.9, Neutrophils # (Auto) 4.4, Lymphocytes # (Auto) 0.5 L, Monocytes # ( Auto) 0.4, Eosinophils # (Auto) 0.1, Basophils # (Auto) 0.0, Calcium Level 7.7 L Microbiology Microbiology 02/28/17 Blood Culture - Preliminary, Resulted No growth after 24 hours . All specim... 02/28/17 Blood Culture - Preliminary, Resulted No growth after 24 hours . All specim... 02/27/17 Blood Culture - Preliminary, Resulted Escherichia Coli 02/27/17 Blood Culture - Preliminary, Resulted Escherichia Coli 02/27/17 Influenza Virus Type A Antigen - Final, Complete 02/27/17 Influenza Virus Type B Antigen - Final, Complete 02/27/17 Urine Culture - Final, Complete Escherichia Coli KATE ADHIKARI MD March 02, 2017 11:50
[2017-03-02] MEDS ORDERED: LevoFLOXacin IV 750 MG in APPROPRIATE DILUENT 1 EA IV SCH (12:00)
[2017-03-02] MEDS: CEFDINIR 300 MG CAP (OMNICEF) PO SCH ×2 (13:04→20:58)
--- NOTE | 2017-03-02 13:41 | REP ---
Clinical: Left lower extremity pain and swelling . Technique: Davies scale and color Doppler evaluation using linear high frequency transducer. Findings: Ultrasound examination of the left lower extremity deep venous structures from the common femoral vein to the popliteal vein demonstrates normal compressibility flow and wave patterns in response to respiration and augmentation. There is no evidence for deep venous thrombosis. Impression: No evidence for deep venous thrombosis. Signed by Augustine Bennett MD 03/02/2017 01:32 P
[2017-03-02 14:00] VITALS: BP 146/72
[2017-03-02] MEDS: ASPIRIN 81 MG ENTERIC TAB PO SCH (20:58)
[2017-03-02 22:00] VITALS: BP 142/97
[2017-03-03] MEDS: PERCOCET 5MG/325MG TAB PO PRN ×3 (02:45→10:46)
[2017-03-03 06:00] VITALS: BP 141/78
[2017-03-03 06:37] LABS: BASO % 1.4 % (0.0-1.0); EOS # 0.2 K/mm3 (0.0-0.50); EOS % 4.2 % (0.0-3.0); LARGE UNSTAINED CELL # 0.1 K/mm3 (0.0-0.4); LARGE UNSTAINED CELL % 1.7 % (0.0-4.0); LYMPH # 0.8 K/mm3 (1.5-4.5); LYMPH % 18.8 % (24.0-44.0); MEAN CORPUSCULAR HEMOGLOBIN 30.5 pg (27.0-33.0); MEAN CORPUSCULAR HGB CONC 33.2 g/dl (32.0-36.5); MEAN CORPUSCULAR VOLUME 91.9 fl (80.0-96.0); MONO # 0.3 K/mm3 (0.0-0.8); MONO % 6.8 % (0.0-5.0); NEUTROPHILS # 2.5 K/mm3 (1.8-7.7); NEUTROPHILS % 67.1 % (36.0-66.0); RED CELL DISTRIBUTION WIDTH 14.8 % (11.5-14.5); WHITE BLOOD COUNT 3.7 K/mm3 (4.0-10.0)
[2017-03-03 06:38] LABS: ANION GAP 6 MEQ/L (8-16); BLOOD UREA NITROGEN 9 MG/DL (7-18); CALCIUM LEVEL 7.3 MG/DL (8.5-10.1); CARBON DIOXIDE LEVEL 24 MEQ/L (21-32); CHLORIDE LEVEL 110 MEQ/L (98-107); CREATININE FOR GFR 0.66 MG/DL (0.55-1.02); GLOMERULAR FILTRATION RATE > 60.0 (>51); GLUCOSE, FASTING 70 MG/DL (70-105); POTASSIUM SERUM 3.4 MEQ/L (3.5-5.1); SODIUM LEVEL 140 MEQ/L (136-145)
[2017-03-03 07:03] LABS: PLATELET COUNT, AUTOMATED 98 k/mm3 (150-450)
[2017-03-03] MEDS ORDERED: CEFD300CAP PO (09:09)
[2017-03-03] MEDS ORDERED: POTASSIUM CHLORIDE 10% LIQ 20 MEQ/15 ML UDC PO ONE (09:30)
[2017-03-03 09:39] LABS: MAGNESIUM LEVEL 2.2 MG/DL (1.8-2.4)
--- NOTE | 2017-03-03 09:47 | DS.PDOC ---
Discharge Summary General Date of Admission February 27, 2017 at 17:08 Date of Discharge 03/03/17 Specialist/Consultants Involve: Christa Howell MD Discharge Summary PROCEDURES PERFORMED DURING STAY: [None]. DISCHARGE DIAGNOSES: 1. UTI - E.Coli 2. Bacteremia - E.coli 3. HTN - low-normal blood pressures during hospital stay 4. IgD Jerson multiple myeloma 5. hypogammaglobulinemia - IVIG therapy 6. left hip avascular necrosis 7. left mandible osteonecrosis with chronic draining sinuses s/p zoledronic acid 8. Hx [place] chorea 9. Hx flail chest s/p permanent tracheostomy 10. Hx RUE DVT thrombosis - 2010 11. T4 kyphosis/rib fracture 12. Restrictive lung disease 13. Depression 14. Subglottic stenosis d/t prolonged intubation - perm. trach COMPLICATIONS/CHIEF COMPLAINT: Multiple Myeloma; Uti. HOSPITAL COURSE: 61 female with extensive PMHx as indicated presents for fever, chills recently completing outpatient therapy with Bactrim for cellulitis of jaw. Found to have UTI, admitted for further evaluation and treatment. Started on IV Cefepime, oncology consultation. Patient found to be bacteremic with E.Coli, similarly found in urine. Transitioned to PO Cefdinir. Responded well to treatment, case discussed with oncology, and patient discharged home with follow up in 1-2 days with her oncologist. Discussed with Ezekiel over the phone as well. Hospital stay also notable for low blood pressures, home anti- hypertensives (metoprolol) discontinued pending re-evaluation by her PCP. DISCHARGE MEDICATIONS: Please see below. ALLERGIES: Please see below. PHYSICAL EXAMINATION ON DISCHARGE: VITAL SIGNS: Please see below. GENERAL: NAD HEENT: NC, trach site c/d/i NECK: supple CARDIOVASCULAR EXAMINATION: +S1S2, RRR RESPIRATORY EXAMINATION: CTA B/L ABDOMINAL EXAMINATION: soft, NT, +BS EXTREMITIES: no edema PSYCHIATRIC EXAMINATION: AAOx3 LABORATORY DATA: Please see below. ACTIVITY: [As tolerated]. DIET: 2 gram sodium DISPOSITION: Discharge home DISCHARGE INSTRUCTIONS: 1. Follow up PCP in 3-5 days. 2. Follow up oncology 1-2 days. 3. If fevers please return to ER. DISCHARGE CONDITION: [Stable]. TIME SPENT ON DISCHARGE: Greater than 30 minutes. Vital Signs/I&Os Vital Signs Date Time Temp Pulse Resp B/P (MAP) Pulse Ox O2 Delivery O2 Flow Rate FiO2 03/03/17 07:15 18 03/03/17 06:00 98.0 66 141/78 (99) 95 Room Air I&O- Last 24 Hours up to 6 AM 03/03/17 06:00 Intake Total 1445 ml Output Total 750 ml Balance 695 ml Laboratory Data Labs 24H Laboratory Tests 2 03/03/17 05:55: White Blood Count 3.7L, Red Blood Count 2.83L, Hemoglobin 8.6L, Hematocrit 26.0L , Mean Corpuscular Volume 91.9, Mean Corpuscular Hemoglobin 30.5, Mean Corpuscular Hemoglobin Concent 33.2, Red Cell Distribution Width 14.8H, Platelet Count 98L, Neutrophils (%) (Auto) 67.1H, Lymphocytes (%) (Auto) 18.8L, Monocytes (%) (Auto) 6.8H, Eosinophils (%) (Auto) 4.2H, Basophils (%) (Auto) 1.4H, Neutrophils # (Auto) 2.5, Lymphocytes # (Auto) 0.8L, Monocytes # (Auto) 0.3, Eosinophils # (Auto) 0.2, Basophils # (Auto) 0.0, Large Unclassified Cells % 1.7, Large Unclassified Cells # 0.1, Anion Gap 6L, Glomerular Filtration Rate > 60.0, Blood Urea Nitrogen 9, Creatinine 0.66, Sodium Level 140, Potassium Level 3.4L, Chloride Level 110H, Carbon Dioxide Level 24, Calcium Level 7.3L CBC/BMP Laboratory Tests 03/03/17 05:55 Red Blood Count 2.83 L, Mean Corpuscular Volume 91.9, Mean Corpuscular Hemoglobin 30.5, Mean Corpuscular Hemoglobin Concent 33.2, Red Cell Distribution Width 14.8 H, Neutrophils (%) (Auto) 67.1 H, Lymphocytes (%) (Auto ) 18.8 L, Monocytes (%) (Auto) 6.8 H, Eosinophils (%) (Auto) 4.2 H, Basophils (% ) (Auto) 1.4 H, Neutrophils # (Auto) 2.5, Lymphocytes # (Auto) 0.8 L, Monocytes # (Auto) 0.3, Eosinophils # (Auto) 0.2, Basophils # (Auto) 0.0, Calcium Level 7.3 L Microbiology Microbiology 02/28/17 Blood Culture - Preliminary, Resulted No Growth after 48 hours. All Specime... 02/28/17 Blood Culture - Preliminary, Resulted No Growth after 48 hours. All Specime... 02/27/17 Blood Culture - Final, Complete Escherichia Coli Escherichia Coli#2 02/27/17 Blood Culture - Final, Complete Escherichia Coli Escherichia Coli#2 02/27/17 Influenza Virus Type A Antigen - Final, Complete 02/27/17 Influenza Virus Type B Antigen - Final, Complete 02/27/17 Urine Culture - Final, Complete Escherichia Coli Discharge Medications Scheduled (Empliciti) 300 Mg Inj, 300 MG IV Q2WK, (Reported) (Revlimid) 10 Mg Cap, 10 MG PO ASDIRECTED, (Reported) TAKES DAILY FOR 3 WEEKS, THEN OFF FOR ONE WEEK, UNKNOWN WHICH DAY PT IS CURRENTLY ON IN COURSE Aspirin (Aspirin 81) 81 Mg Tab, 81 MG PO QHS, (Reported) Cefdinir (Cefdinir) 300 Mg Cap, 300 MG PO BID Chlorhexidine Gluconate (Peridex) 0.12 % [place], 5 ML SSP BID, (Reported) Citalopram Hydrobromide (Citalopram Hydrobromide) 40 Mg Tab, 40 MG PO DAILY, ( Reported) Dexamethasone (Dexamethasone) 4 Mg Tab, 20 MG PO QWEEK, (Reported) SUNDAYS Fentanyl (Duragesic) 100 Mcg/Hr Dis, 100 MCG TD Q3RD, (Reported) SUPPOSED TO BE CHANGED TODAY, BUT STILL HAS APPLIED ON UPPER LEFT BACK Gabapentin (Gabapentin) 100 Mg Cap, 100 MG PO BID, (Reported) Guaifenesin (Guaifenesin ER) 600 Mg Tab, 600 MG PO BID, (Reported) Lansoprazole (Lansoprazole) 30 Mg Cap, 30 MG PO BID, (Reported) Magnesium Oxide (Magnesium Oxide 400) 400 Mg Tab, 400 MG PO DAILY, (Reported) [Gamma Globulin] , 1 DOSE IV QMONTH, (Reported) Scheduled PRN Budesonide (Budesonide) 0.5 Mg/2 Ml Neb, 0.5 MG INH BID PRN for SHORTNESS OF BREATH, (Reported) Docusate Sodium (Colace) 100 Mg Cap, 100 MG PO DAILY PRN for CONSTIPATION, ( Reported) Levalbuterol Hydrochloride (Xopenex Concentrate) 1.25 Mg/0.5 Ml Neb, 1.25 MG INH QID PRN for SHORTNESS OF BREATH, (Reported) Ondansetron HCl (Ondansetron HCl) 4 Mg Tab, 4 MG PO Q8H PRN for NAUSEA OR VOMITING, (Reported) Oxycodone/Acetaminophen (Percocet 10-325 mg) 1 Tab Tab, 1 TAB PO Q6H PRN for PAIN, (Reported) Quetiapine Fumerate (Seroquel) 25 Mg Tab, 25 MG PO for ANXIETY, (Reported) Allergies Coded Allergies: Clavulanic Acid (Verified Allergy, Unknown, 02/27/17) Penicillins (Verified Allergy, Unknown, TAKES CEFDINIR WITH NO ISSUES, ) Alprazolam (Verified Adverse Reaction, Intermediate, INCREASED AGITATION, 02/27/17) Lorazepam (Verified Adverse Reaction, Intermediate, INCREASED AGITATION, ) KATE ADHIKARI MD March 03, 2017 09:47
[2017-03-03] MEDS: fentaNYL 100 MCG/HR PATCH TD SCH (10:04)
[2017-03-03] MEDS: CHLORHEXIDINE GLUCONATE 0.12 % 15ML UDC (PERIDEX ORAL RINSE) SSP SCH (10:05)
[2017-03-03] MEDS: CitaloPRAM (CeleXA) 20 MG TAB PO SCH (10:05)
[2017-03-03] MEDS: CEFDINIR 300 MG CAP (OMNICEF) PO SCH (10:05)
[2017-03-03] MEDS: guaiFENesin ER 600 MG TAB PO SCH (10:05)
[2017-03-03] MEDS: SENOKOT S TAB PO SCH (10:05)
[2017-03-03] MEDS: GABAPENTIN 100 MG CAP PO SCH (10:05)
[2017-03-03] MEDS: MAGNESIUM OXIDE 400 MG TAB (MAG-OX) PO SCH (10:05)
[2017-03-03 10:10] VITALS: BP 138/90
[2017-03-03] MEDS: METOPROLOL TART 12.5 MG PER 1/2 TAB PO SCH (10:10)
[2017-03-03] MEDS: FENTANYL REMOVAL DOCUMENTATION MISC XX SCH (10:18)
== END 2017-03-03 11:26 | disposition home or self-care (01) | DRG 690 ==
LOC: M ED 15:06 → M ED INP 17:08 → M MSPAV 19:43
PROVIDERS: ADMIT Internal Medicine Nephrology; ATTEND Internal Medicine
DX: N39.0 Urinary tract infection, site not specified (principal); C90.00 Multiple myeloma not having achieved remission; D80.6 Antibody deficiency with near-normal immunoglobulins or with hyperimmunoglobulinemia; R78.81 Bacteremia; M87.9 Osteonecrosis, unspecified; J95.5 Postprocedural subglottic stenosis; B96.20 Unspecified Escherichia coli [E. coli] as the cause of diseases classified elsewhere; I10 Essential (primary) hypertension; G89.29 Other chronic pain; M41.9 Scoliosis, unspecified; J98.4 Other disorders of lung; F32.9 Major depressive disorder, single episode, unspecified; Z79.899 Other long term (current) drug therapy; Z79.82 Long term (current) use of aspirin; Z88.0 Allergy status to penicillin; Z88.1 Allergy status to other antibiotic agents; Z88.8 Allergy status to other drugs, medicaments and biological substances; Z93.0 Tracheostomy status; Z92.21 Personal history of antineoplastic chemotherapy

== ENCOUNTER → 2017-03-12 | Outpatient (REF) | payer OTHER ==
[~2017-03-12] MED LIST changes: +ASPI1TAB PO; +BUDE0.5S6 INH; +CEFD300CAP PO; +CITA40TA4 PO; +COLA100C3 PO; +DEXA4TA PO; +DURA100D2 TD; +GABA-279 PO; +GUAI1TAB PO; +LEVA12INH INH; +MAGN400T5 PO; +METO50TA2 PO; +ONDA1TAB15 PO; +PERC10TA17 PO; +PERI0.126 SSP; +REVL10CA2 PO; +SERO1TAB3 PO
[2017-03-12 13:57] LABS: IMMUNOGLOBULIN A 40.1 MG/DL (70-400); IMMUNOGLOBULIN G 952 MG/DL (681-1648)
[2017-03-12 14:25] LABS: IMMUNOGLOBULIN M 5.78 MG/DL (40-230)
[2017-03-14 12:29] LABS: ALBUMIN % 56.4 % (55.8-66.1); GAMMA GLOBULIN % 16.8 % (11.1-18.8)
[2017-03-14 12:30] LABS: ALBUMIN 3.38 GM/DL (3.29-5.55)
[2017-03-15 08:06] LABS: BETA 2 MICROGLOBULIN 1.9 mg/L (0.6-2.4); FREE KAPPA LIGHT CHAINS SERUM 9.23 mg/L (3.30-19.40); FREE LAMBDA LIGHT CHAINS SERUM 74.41 mg/L (5.71-26.30); KAPPA/LAMBDA RATIO SERUM 0.12 (0.26-1.65)
== END ==
LOC: M LAB REF 12:26
PROVIDERS: ATTEND Internal Medicine Medical Oncology
DX: C90.00 Multiple myeloma not having achieved remission (principal)

== ENCOUNTER → 2017-03-22 | Outpatient (REF) | payer OTHER ==
[2017-03-22 14:58] LABS: IMMUNOGLOBULIN A 39.2 MG/DL (70-400); IMMUNOGLOBULIN G 808 MG/DL (681-1648)
[2017-03-22 15:11] LABS: IMMUNOGLOBULIN M < 5.3 MG/DL (40-230)
[2017-03-25 10:28] LABS: ALBUMIN % 56.8 % (55.8-66.1)
[2017-03-25 10:29] LABS: ALBUMIN 3.41 GM/DL (3.29-5.55)
[2017-03-26 00:06] LABS: FREE KAPPA LIGHT CHAINS SERUM 10.6 mg/L (3.3-19.4); FREE LAMBDA LIGHT CHAINS SERUM 198.5 mg/L (5.7-26.3); KAPPA/LAMBDA RATIO SERUM 0.05 (0.26-1.65)
== END ==
LOC: M LAB REF 13:09
PROVIDERS: ATTEND Internal Medicine Medical Oncology
DX: C90.00 Multiple myeloma not having achieved remission (principal)

== ENCOUNTER 2017-04-10 16:50 | Emergency (ER) | payer OTHER ==
[~2017-04-10] VITALS: Ht 144.8 cm; Wt 48.4 kg
[~2017-04-10 16:50] MED LIST changes: -COLA100C3 PO; +COLA100C5 PO; -METO50TA2 PO; +METO50TA7 PO; -ONDA1TAB15 PO; +ONDA4TAB5 PO; -PERC10TA17 PO; +PERC10TA26 PO
[2017-04-10] MEDS ORDERED: POMA2CAP PO (17:10)
[2017-04-10] MEDS ORDERED: [UNRECOGNIZED DRUG - CODE] IV (17:10)
[2017-04-10] MEDS ORDERED: PROC5TA PO (17:10)
[2017-04-10] MEDS ORDERED: METO25TA4 PO (17:10)
[2017-04-10] MEDS ORDERED: NS 1,000 ML IV SCH (17:51)
[2017-04-10] MEDS ORDERED: NS 500 ML IV ONE (18:00)
[2017-04-10 18:38] LABS: BASO % 0.6 % (0.0-1.0); EOS % 4.1 % (0.0-3.0); LYMPH # 0.9 K/mm3 (1.5-4.5); LYMPH % 21.2 % (24.0-44.0); MEAN CORPUSCULAR HEMOGLOBIN 30.4 pg (27.0-33.0); MEAN CORPUSCULAR HGB CONC 33.4 g/dl (32.0-36.5); MEAN CORPUSCULAR VOLUME 90.9 fl (80.0-96.0); MONO % 10.6 % (0.0-5.0); NEUTROPHILS # 2.6 K/mm3 (1.8-7.7); NEUTROPHILS % 61.5 % (36.0-66.0); PLATELET COUNT, AUTOMATED 134 k/mm3 (150-450); WHITE BLOOD COUNT 4.3 K/mm3 (4.0-10.0)
[2017-04-10 18:39] LABS: EOS # 0.2 K/mm3 (0.0-0.50); LARGE UNSTAINED CELL # 0.1 K/mm3 (0.0-0.4); MONO # 0.5 K/mm3 (0.0-0.8)
[2017-04-10 18:41] LABS: INR 1.17
[2017-04-10 19:00] LABS: ALBUMIN 2.9 GM/DL (3.2-5.2); ALBUMIN/GLOBULIN RATIO 1.04 (1.00-1.93); ALKALINE PHOSPHATASE 50 U/L (45-117); ALT/SGPT 13 U/L (12-78); ANION GAP 5 MEQ/L (8-16); AST/SGOT 9 U/L (15-37); BILIRUBIN,DIRECT < 0.1 MG/DL (0.0-0.2); BILIRUBIN,TOTAL 0.3 MG/DL (0.2-1.0); BLOOD UREA NITROGEN 14 MG/DL (7-18); CALCIUM LEVEL 8.4 MG/DL (8.5-10.1); CARBON DIOXIDE LEVEL 27 MEQ/L (21-32); CHLORIDE LEVEL 105 MEQ/L (98-107); CREATININE FOR GFR 0.78 MG/DL (0.55-1.02); GLOMERULAR FILTRATION RATE > 60.0 (>51); GLUCOSE, FASTING 72 MG/DL (70-105); POTASSIUM SERUM 3.9 MEQ/L (3.5-5.1); SODIUM LEVEL 137 MEQ/L (136-145); TOTAL PROTEIN 5.7 GM/DL (6.4-8.2)
--- NOTE | 2017-04-10 19:30 | REP ---
CT abdomen and pelvis without IV or oral contrast: History: Diffuse abdominal pain. The patient gives a history of multiple myeloma. Comparison CT study: 03/30/2007. CT findings: The lung bases are clear. The patient has significantly exaggerated thoracic kyphosis visible at the top of the scan range. No focal hepatic or splenic lesion is seen. There is no evidence of hydronephrosis. No adrenal mass or pancreatic mass lesion is seen. The gallbladder is not visible. There are sutures along the anterior wall of the stomach which may relate to previous feeding tube placement. No hydronephrosis is seen. No mass is observed. Small and large intestinal bowel loops are unremarkable in the abdomen and pelvis. No retroperitoneal mass or adenopathy is observed. There is no evidence of free intraperitoneal air. The bones are diffusely abnormal with osteoporosis and a mottled pattern of multifocal radiolucency. This is compatible with the patient's history of multiple myeloma. There is a destructive lesion involving the left side of the L4 vertebral body involving the pedicle and the posterior lateral aspect of the L4 body. There is soft tissue fullness here in the paraspinal soft tissues. The left fourth transverse process is of eroded. This could reflect an active myelomatous or metastatic lesion. No other area of extensive focal bony destruction is appreciated. Impression: 1. No acute intra-abdominal abnormality seen. 2. There is a focal bony destructive lesion involving the posterolateral aspect of the L4 vertebral body including the L4 pedicle and transverse process on the left side with adjacent soft tissue mass effect. This may represent an active myelomatous lesion. 3. No other acute bony abnormality is appreciated. Extensive chronic bony changes. There is wedge compression fracture deformity T11 and T12 which appears old. Signed by Alex Merrill MD 04/10/2017 08:28 P
[2017-04-10] MEDS ORDERED: LEVA1TAB2 PO (20:47)
[2017-04-10] MEDS ORDERED: SODIUM CHLORIDE 0.9% INJ 10 ML SYR IV PRN (21:00)
--- NOTE | 2017-04-10 21:20 | REPUSA ---
CLINICAL HISTORY: Hematuria. TECHNIQUE: Realtime sonographic images were obtained in multiple projections. Limited study due to pa jose l's condition. COMMENTS: The right kidney measures 11.1 cm and the left kidney measures 11.5 cm. Both kidneys are free of hy dronephrosis. There is no evidence of solid or cystic mass. There is no perinephric fluid. There is n o renal calculus. Bladder is not seen. IMPRESSION: Limited but grossly normal study. Thank you for your kind referral of this patient.
[2017-04-10] MEDS ORDERED: HEPARIN SOD (PORCINE) 5000 UNITS/ML VIAL IV ONE (21:30)
[2017-04-10 21:56] VITALS: BP 116/63
[2017-04-11] MEDS ORDERED: SODIUM CHLORIDE 0.9% INJ 10 ML SYR IV SCH (09:00)
--- NOTE | 2017-04-12 07:21 | ECGEPIP ---
Stationary ECG Study [facility] - ED Test Date: 2017-04-10 Pat Name: FELICE BLACK Department: Room: - Gender: F Foxer: dipak : 1955 Requested By: BERENICE VAUGHN Order Number: [id number] Reading MD: Anabel Ortiz Measurements Intervals Simms Rate: 57 P: 37 SC: 190 QRS: -3 QRSD: 89 T: 13 QT: 416 QTc: 408 Interpretive Statements SINUS BRADYCARDIA DECREASED RATE 01/30/12 Electronically Signed On 04-12-2017 7:21:12 EDT by Anabel Ortiz
[2017-08-12] MEDS ORDERED: ACYC400T (20:46)
== END 2017-04-10 21:59 | disposition home or self-care (01) ==
LOC: M ED 16:50
DX: R31.9 Hematuria, unspecified (principal); R00.1 Bradycardia, unspecified; I10 Essential (primary) hypertension; C90.00 Multiple myeloma not having achieved remission; F32.9 Major depressive disorder, single episode, unspecified; F41.9 Anxiety disorder, unspecified; Z79.899 Other long term (current) drug therapy; Z79.82 Long term (current) use of aspirin

== ENCOUNTER 2017-04-12 08:57 | Outpatient (CLI) | payer OTHER ==
[~2017-04-12] VITALS: Ht 144.8 cm; Wt 52.3 kg
[~2017-04-12 08:57] MED LIST changes: +LEVA1TAB2 PO; +METO25TA4 PO; +POMA2CAP PO; +PROC5TA PO; +[UNRECOGNIZED DRUG - CODE] IV
[2017-04-12] MEDS: SODIUM CHLORIDE 0.9% INJ 10 ML SYR IV SCH ×2 (09:00→13:11)
[2017-04-12] MEDS ORDERED: diphenhydrAMINE 25 MG CAP PO ONE (09:00)
[2017-04-12] MEDS ORDERED: IMMUNE GLOBULIN 10% 20GM 200ML 20 GM in APPROPRIATE DILUENT 1 EA IV ONE (09:00)
[2017-04-12] MEDS ORDERED: IMMUNE GLOBULIN 10% 10GM 100ML 10 GM in APPROPRIATE DILUENT 1 EA IV ONE (09:00)
[2017-04-12] MEDS ORDERED: ACETAMINOPHEN TAB 650MG DOSE (2X325MG) PO ONE (09:00)
[2017-08-12] MEDS ORDERED: ACYC400T (20:46)
== END 2017-04-12 14:30 | disposition home or self-care (01) ==
LOC: M INFU 08:57
PROVIDERS: ATTEND Internal Medicine Medical Oncology
DX: C90.00 Multiple myeloma not having achieved remission (principal); Z88.8 Allergy status to other drugs, medicaments and biological substances; Z88.1 Allergy status to other antibiotic agents; Z88.0 Allergy status to penicillin; Z79.82 Long term (current) use of aspirin; Z79.899 Other long term (current) drug therapy
CPT/HCPCS: 96365; 96366; J1569

== ENCOUNTER → 2017-04-19 | Outpatient (REF) | payer OTHER, MEDICARE ==
[~2017-04-19] MED LIST changes: +ACYC400T; +DEXA2TA PO; +PROC10TA PO; +ZOFR8TAB PO
== END ==
LOC: M LABSMT 14:31
PROVIDERS: ATTEND Nurse Practitioner Women's Health
DX: N39.0 Urinary tract infection, site not specified (principal)

== ENCOUNTER → 2017-04-23 | Outpatient (CLI) | payer OTHER, MEDICARE ==
--- NOTE | 2017-04-23 11:22 | REP ---
Left lower extremity Duplex Doppler venous ultrasound: Real time compression and duplex Doppler interrogation of the left lower extremity deep venous system is performed. The left common femoral, superficial femoral and popliteal veins are fully compressible with transducer pressure and demonstrate normal spontaneous and phasic flow, without evidence of deep venous thrombosis. Impression: No evidence of deep venous thrombosis of the left lower extremity femoral popliteal venous system. Signed by Asad Davies MD 04/23/2017 11:13 A
== END ==
LOC: M RAD 10:40
PROVIDERS: ATTEND Internal Medicine Medical Oncology
DX: C90.00 Multiple myeloma not having achieved remission (principal)

== ENCOUNTER → 2017-04-23 | Outpatient (REF) | payer OTHER, MEDICARE | LOC: M LAB REF 13:14 | PROVIDERS: ATTEND Internal Medicine Medical Oncology | DX: C90.00 Multiple myeloma not having achieved remission (principal) ==

== ENCOUNTER → 2017-05-02 | Outpatient (REF) | payer OTHER, MEDICARE | LOC: M LAB REF 09:18 | PROVIDERS: ATTEND Internal Medicine Medical Oncology | DX: C90.00 Multiple myeloma not having achieved remission (principal) ==

== ENCOUNTER → 2017-05-06 | Outpatient (REF) | payer OTHER, MEDICARE ==
[2017-05-06 17:02] LABS: IMMUNOGLOBULIN A 33.7 MG/DL (70-400); IMMUNOGLOBULIN G 815 MG/DL (681-1648); TOTAL PROTEIN 6.3 GM/DL (6.4-8.2)
[2017-05-06 17:38] LABS: IMMUNOGLOBULIN M < 5.3 MG/DL (40-230)
[2017-05-08 10:58] LABS: ALBUMIN % 58.5 % (55.8-66.1)
[2017-05-08 10:59] LABS: ALBUMIN 3.69 GM/DL (3.29-5.55); GAMMA GLOBULIN % 13.3 % (11.1-18.8)
[2017-05-09 00:07] LABS: FREE KAPPA LIGHT CHAINS SERUM 5.1 mg/L (3.3-19.4); FREE LAMBDA LIGHT CHAINS SERUM 23.9 mg/L (5.7-26.3); KAPPA/LAMBDA RATIO SERUM 0.21 (0.26-1.65)
== END ==
LOC: M LAB REF 15:57
PROVIDERS: ATTEND Internal Medicine Medical Oncology
DX: C90.00 Multiple myeloma not having achieved remission (principal)

== ENCOUNTER → 2017-05-07 | Outpatient (REF) | payer OTHER, MEDICARE | LOC: M LAB REF 13:01 | PROVIDERS: ATTEND Internal Medicine Medical Oncology | DX: C90.00 Multiple myeloma not having achieved remission (principal) | CPT/HCPCS: 86850; 86900; 86901; 86920; P9016 ==

== ENCOUNTER 2017-05-08 08:03 | Outpatient (CLI) | payer OTHER, MEDICARE ==
[~2017-05-08] VITALS: Ht 144.8 cm; Wt 52.3 kg
[~2017-05-08 08:03] MED LIST changes: +ACETAMINOPHEN TAB 650MG DOSE (2X325MG) PO SCH; -ACYC400T; -DEXA2TA PO; -PROC10TA PO; -ZOFR8TAB PO; +diphenhydrAMINE 25 MG CAP PO SCH
[2017-05-08] MEDS ORDERED: SODIUM CHLORIDE 0.9% INJ 10 ML SYR IV SCH (09:00)
[2017-05-08] MEDS ORDERED: ZOFR8TAB PO (14:37)
[2017-05-08] MEDS ORDERED: DEXA2TA PO (14:37)
[2017-05-08] MEDS ORDERED: PROC10TA PO (14:37)
[2017-08-12] MEDS ORDERED: ACYC400T (20:46)
== END 2017-05-08 13:30 | disposition home or self-care (01) ==
LOC: M INFU 08:03
PROVIDERS: ATTEND Nurse Practitioner Family
DX: C90.00 Multiple myeloma not having achieved remission (principal); I10 Essential (primary) hypertension; N19 Unspecified kidney failure; M40.209 Unspecified kyphosis, site unspecified; Z79.891 Long term (current) use of opiate analgesic; Z79.899 Other long term (current) drug therapy; Z88.1 Allergy status to other antibiotic agents; Z88.8 Allergy status to other drugs, medicaments and biological substances
CPT/HCPCS: 36430; P9016

== ENCOUNTER 2017-05-17 09:16 | Outpatient (CLI) | payer OTHER, MEDICARE ==
[~2017-05-17] VITALS: Ht 144.8 cm; Wt 52.3 kg
[~2017-05-17 09:16] MED LIST changes: -ACETAMINOPHEN TAB 650MG DOSE (2X325MG) PO SCH; +DEXA2TA PO; +PROC10TA PO; +SODIUM CHLORIDE 0.9% INJ 10 ML SYR IV SCH; +ZOFR8TAB PO; -diphenhydrAMINE 25 MG CAP PO SCH
[2017-05-17] MEDS ORDERED: IMMUNE GLOBULIN 10% 10GM 100ML 10 GM in APPROPRIATE DILUENT 1 EA IV ONE (09:30)
[2017-05-17] MEDS ORDERED: diphenhydrAMINE 25 MG CAP PO ONE (09:30)
[2017-05-17] MEDS ORDERED: ACETAMINOPHEN TAB 650MG DOSE (2X325MG) PO ONE (09:30)
[2017-05-17] MEDS ORDERED: IMMUNE GLOBULIN 10% 20GM 200ML 20 GM in APPROPRIATE DILUENT 1 EA IV ONE (09:30)
[2017-08-12] MEDS ORDERED: ACYC400T (20:46)
== END 2017-05-17 13:20 | disposition home or self-care (01) ==
LOC: M INFU 09:16
PROVIDERS: ATTEND Internal Medicine Medical Oncology
DX: C90.00 Multiple myeloma not having achieved remission (principal); Z79.82 Long term (current) use of aspirin; Z79.891 Long term (current) use of opiate analgesic; Z79.899 Other long term (current) drug therapy; Z88.0 Allergy status to penicillin; Z88.8 Allergy status to other drugs, medicaments and biological substances; I10 Essential (primary) hypertension; F41.9 Anxiety disorder, unspecified
CPT/HCPCS: 96365; 96366; J1569

== ENCOUNTER 2017-05-22 15:49 | Outpatient (CLI) | payer OTHER, MEDICARE ==
[~2017-05-22 15:49] MED LIST changes: -ACYC400T; +SODIUM CHLORIDE 0.9% INJ 10 ML SYR IV SCH
[2017-08-12] MEDS ORDERED: ACYC400T (20:46)
== END 2017-05-22 16:00 | disposition home or self-care (01) ==
LOC: M INFU 15:49
PROVIDERS: ATTEND Nurse Practitioner Family
DX: C90.00 Multiple myeloma not having achieved remission (principal); Z79.82 Long term (current) use of aspirin; Z79.52 Long term (current) use of systemic steroids; Z79.899 Other long term (current) drug therapy; Z79.891 Long term (current) use of opiate analgesic

== ENCOUNTER → 2017-05-22 | Outpatient (REF) | payer OTHER ==
[~2017-05-22] MED LIST changes: +ACYC400T; -SODIUM CHLORIDE 0.9% INJ 10 ML SYR IV SCH
[2017-05-22 16:55] LABS: EOS % 0.4 % (0.0-3.0); LARGE UNSTAINED CELL # 0.1 K/mm3 (0.0-0.4); LYMPH # 0.4 K/mm3 (1.5-4.5); LYMPH % 8.5 % (24.0-44.0); MEAN CORPUSCULAR HEMOGLOBIN 29.9 pg (27.0-33.0); MEAN CORPUSCULAR HGB CONC 33.4 g/dl (32.0-36.5); MEAN CORPUSCULAR VOLUME 89.7 fl (80.0-96.0); MONO # 0.4 K/mm3 (0.0-0.8); MONO % 8.5 % (0.0-5.0); NEUTROPHILS # 3.9 K/mm3 (1.8-7.7); NEUTROPHILS % 81.5 % (36.0-66.0); RED CELL DISTRIBUTION WIDTH 15.4 % (11.5-14.5); WHITE BLOOD COUNT 4.7 K/mm3 (4.0-10.0)
[2017-05-22 16:56] LABS: PLATELET COUNT, AUTOMATED 98 k/mm3 (150-450)
[2017-05-22 17:09] LABS: ALBUMIN 3.1 GM/DL (3.2-5.2); ALBUMIN/GLOBULIN RATIO 0.89 (1.00-1.93); ALKALINE PHOSPHATASE 45 U/L (45-117); ALT/SGPT 15 U/L (12-78); ANION GAP 9 MEQ/L (8-16); AST/SGOT 11 U/L (15-37); BILIRUBIN,TOTAL 0.4 MG/DL (0.2-1.0); BLOOD UREA NITROGEN 19 MG/DL (7-18); CARBON DIOXIDE LEVEL 25 MEQ/L (21-32); CHLORIDE LEVEL 106 MEQ/L (98-107); CREATININE FOR GFR 0.78 MG/DL (0.55-1.02); GLOMERULAR FILTRATION RATE > 60.0 (>51); GLUCOSE, FASTING 67 MG/DL (70-105); POTASSIUM SERUM 4.2 MEQ/L (3.5-5.1); SODIUM LEVEL 140 MEQ/L (136-145); TOTAL PROTEIN 6.6 GM/DL (6.4-8.2)
== END ==
LOC: M LAB REF 16:13
PROVIDERS: ATTEND Emergency Medicine
DX: C90.00 Multiple myeloma not having achieved remission (principal); R06.02 Shortness of breath

== ENCOUNTER → 2017-05-28 | Outpatient (REF) | payer OTHER ==
[~2017-05-28] MED LIST changes: +ACYC400T; -SODIUM CHLORIDE 0.9% INJ 10 ML SYR IV SCH
[2017-05-28 15:36] LABS: IMMUNOGLOBULIN A 27.3 MG/DL (70-400); IMMUNOGLOBULIN G 963 MG/DL (681-1648)
[2017-05-28 15:37] LABS: IMMUNOGLOBULIN M < 5.3 MG/DL (40-230)
[2017-05-30 10:45] LABS: ALBUMIN 3.39 GM/DL (3.29-5.55); ALBUMIN % 56.5 % (55.8-66.1); GAMMA GLOBULIN % 15.9 % (11.1-18.8)
[2017-06-01 08:07] LABS: FREE KAPPA LIGHT CHAINS SERUM 4.7 mg/L (3.3-19.4); IMMUNOGLOBULIN D 17.2 mg/dL (<14.11); KAPPA/LAMBDA RATIO SERUM 0.47 (0.26-1.65)
== END ==
LOC: M LAB REF 13:46
PROVIDERS: ATTEND Internal Medicine Medical Oncology
DX: C90.00 Multiple myeloma not having achieved remission (principal)

== ENCOUNTER → 2017-05-30 | Outpatient (CLI) | payer OTHER, MEDICARE ==
[~2017-05-30] MED LIST changes: +ISOVUE-300 61% 50ML VIAL (Q9967) As Ordered ONE
--- NOTE | 2017-05-30 13:20 | REP ---
CT pulmonary angiogram: With IV contrast. History: Multiple myeloma. Shortness of breath. Question pulmonary embolus. Comparison studies: Comparison CT study without contrast is from November 16, 2014. Contrast dose: 75 cc's of Isovue [address] technique: Helical scanning is acquired and overlapping 1.5 mm and contiguous 3 mm axial images are reformatted. In addition, a 3-D work station is deployed to generate thick slab maximum intensity projection images in sagittal and coronal imaging projections. CT pulmonary angiographic findings: There is good opacification of the pulmonary arterial tree and there is no CT evidence of pulmonary embolism. Thoracic aorta enhances homogeneously without evidence of dissection or aneurysm. There is a marked thoracic kyphosis related to multiple wedged thoracic vertebrae. Skeletal structures have a somewhat mottled mixed sclerotic appearance as before. Again noted is evidence of active bony erosive and destructive change in the left side of the L4 vertebral body involving the left pedicle and left transverse process as seen on the April 10, [address] study. An active myelomatous lesion here cannot be excluded. No other new focal lesion is seen. No acute infiltrate is seen. No pleural effusion or pericardial effusion is seen. No hilar or mediastinal mass or adenopathy is observed. Impression: 1. No CT evidence of pulmonary embolus. 2. Markedly exaggerated thoracic kyphosis and diffuse bony change related to patient's known multiple myeloma. 3. Focal lytic change in the left side of the L4 vertebral body again seen unchanged from the April 10, 2017 study. An active myelomatous lesion at L4 cannot be excluded. 4. Tracheostomy tube in good position. 5. No acute infiltrate seen. Signed by Alex Merrill MD 05/30/2017 01:39 P
== END ==
LOC: M RAD 10:06
PROVIDERS: ATTEND Internal Medicine Medical Oncology
DX: C90.00 Multiple myeloma not having achieved remission (principal); R06.02 Shortness of breath
CPT/HCPCS: 71275; Q9967

== ENCOUNTER → 2017-06-18 | Outpatient (CLI) | payer OTHER, MEDICARE ==
[~2017-06-18] MED LIST changes: -ISOVUE-300 61% 50ML VIAL (Q9967) As Ordered ONE
--- NOTE | 2017-06-18 20:43 | ECHO ---
DATE OF PROCEDURE: 06/18/2017 REFERRING PHYSICIAN: Dr. Christa Howell The study was performed on 06/18/2017 on an outpatient basis for indication shortness of breath and chemotherapy. The patient measures 145 cm and weighs 54 kg. DIMENSIONS: IVS: 1.4 LV: 3.9 LVPW: 1.4 LA: 3.2 Aorta: 3.1 FINDINGS: The study is of fair technical quality. Apparently the patient has a thoracic deformity that results in poor echo windows. The patient was in sinus rhythm during the study. Left ventricle is of normal size and hyperdynamic contractility. I estimate ejection fraction (EF) around 65-70%. Mild left ventricular hypertrophy (LVH) is present. There is a prominent septal "knuckle." Right ventricle appears normal. Both atria are likely normal. Aortic valve has three cusps and normal mobility. Mitral valve also appears structurally intact. Tricuspid valve appears normal. Pulmonic valve was not well seen. No pericardial effusion is noted. Inferior vena cava is normal size. Aortic root appears normal. Aortic arch and abdominal aorta were not well seen. Doppler interrogation reveals no aortic stenosis and minimal aortic insufficiency. There is mild mitral insufficiency and mild tricuspid insufficiency. Calculated pulmonary artery pressure is at least in high 30s corresponding to mild pulmonary hypertension. Pulmonic valve exhibits trace insufficiency. Mitral inflow pattern and tissue Doppler imaging of mitral annulus reveal grade 1 diastolic dysfunction. CONCLUSIONS: 1. Study is of fair technical quality. 2. Normal left ventricular (LV) size with mild left ventricular hypertrophy and hyperdynamic LV systolic function. Grade 1 diastolic dysfunction. 3. No hemodynamically significant valvular disease. 4. Normal central venous pressure. 5. At least mild pulmonary hypertension. COMMENT: Subacute bacterial endocarditis (SBE) prophylaxis is not recommended.
== END ==
LOC: M CARPUL 10:08
PROVIDERS: ATTEND Internal Medicine Medical Oncology
DX: R06.02 Shortness of breath (principal); C90.00 Multiple myeloma not having achieved remission; I27.2 Other secondary pulmonary hypertension; R94.31 Abnormal electrocardiogram [ECG] [EKG]

== ENCOUNTER 2017-06-24 09:08 | Outpatient (CLI) | payer OTHER, MEDICARE ==
[~2017-06-24] VITALS: Ht 144.8 cm; Wt 52.3 kg
[~2017-06-24 09:08] MED LIST changes: -ACYC400T; +SODIUM CHLORIDE 0.9% INJ 10 ML SYR IV SCH
[2017-06-24] MEDS ORDERED: IMMUNE GLOBULIN 10% 10GM 100ML 10 GM in APPROPRIATE DILUENT 1 EA IV ONE (09:30)
[2017-06-24] MEDS ORDERED: diphenhydrAMINE 25 MG CAP PO ONE (09:30)
[2017-06-24] MEDS ORDERED: IMMUNE GLOBULIN 10% 20GM 200ML 20 GM in APPROPRIATE DILUENT 1 EA IV ONE (09:30)
[2017-06-24] MEDS ORDERED: ACETAMINOPHEN TAB 650MG DOSE (2X325MG) PO ONE (09:30)
[2017-08-12] MEDS ORDERED: ACYC400T (20:46)
== END 2017-06-24 13:30 | disposition home or self-care (01) ==
LOC: M INFU 09:08
PROVIDERS: ATTEND Internal Medicine Medical Oncology
DX: C90.00 Multiple myeloma not having achieved remission (principal)
CPT/HCPCS: 96365; 96366; J1569

== ENCOUNTER → 2017-07-01 | Outpatient (REF) | payer OTHER, MEDICARE ==
[~2017-07-01] MED LIST changes: +ACYC400T; -SODIUM CHLORIDE 0.9% INJ 10 ML SYR IV SCH
[2017-07-01 11:26] LABS: IMMUNOGLOBULIN A 43.6 MG/DL (70-400); IMMUNOGLOBULIN G 1170 MG/DL (681-1648); TOTAL PROTEIN 7.1 GM/DL (6.4-8.2)
[2017-07-01 12:09] LABS: IMMUNOGLOBULIN M 6.12 MG/DL (40-230)
[2017-07-01 12:21] LABS: ALBUMIN 3.81 GM/DL (3.29-5.55); ALBUMIN % 53.7 % (55.8-66.1); GAMMA GLOBULIN % 16.1 % (11.1-18.8)
[2017-07-04 00:07] LABS: BETA 2 MICROGLOBULIN 1.8 mg/L (0.6-2.4); FREE KAPPA LIGHT CHAINS SERUM 3.6 mg/L (3.3-19.4); FREE LAMBDA LIGHT CHAINS SERUM 13.4 mg/L (5.7-26.3); IMMUNOGLOBULIN D 15.9 mg/dL (<14.11); KAPPA/LAMBDA RATIO SERUM 0.27 (0.26-1.65)
== END ==
LOC: M LAB REF 08:13
PROVIDERS: ATTEND Internal Medicine Medical Oncology
DX: C90.00 Multiple myeloma not having achieved remission (principal)

== ENCOUNTER 2017-07-22 08:56 | Outpatient (CLI) | payer OTHER, MEDICARE ==
[~2017-07-22] VITALS: Ht 144.8 cm; Wt 53.3 kg
[~2017-07-22 08:56] MED LIST changes: -ACYC400T
[2017-07-22] MEDS ORDERED: SODIUM CHLORIDE 0.9% INJ 10 ML SYR IV SCH (09:00)
[2017-07-22] MEDS ORDERED: IMMUNE GLOBULIN 10% 10GM 100ML 10 GM in APPROPRIATE DILUENT 1 EA IV ONE (09:15)
[2017-07-22] MEDS ORDERED: diphenhydrAMINE 25 MG CAP PO ONE (09:15)
[2017-07-22] MEDS ORDERED: IMMUNE GLOBULIN 10% 20GM 200ML 20 GM in APPROPRIATE DILUENT 1 EA IV ONE (09:15)
[2017-07-22] MEDS ORDERED: ACETAMINOPHEN TAB 650MG DOSE (2X325MG) PO ONE (09:15)
[2017-08-12] MEDS ORDERED: ACYC400T (20:46)
== END 2017-07-22 12:45 | disposition home or self-care (01) ==
LOC: M INFU 08:56
PROVIDERS: ATTEND Internal Medicine Medical Oncology
DX: C90.00 Multiple myeloma not having achieved remission (principal); Z88.8 Allergy status to other drugs, medicaments and biological substances; Z88.0 Allergy status to penicillin; Z88.3 Allergy status to other anti-infective agents; Z79.899 Other long term (current) drug therapy; Z79.82 Long term (current) use of aspirin
CPT/HCPCS: 96365; 96366; J1569

== ENCOUNTER → 2017-07-29 | Outpatient (REF) | payer OTHER, MEDICARE ==
[~2017-07-29] MED LIST changes: +ACYC400T
[2017-07-29 15:07] LABS: IMMUNOGLOBULIN A 59.9 MG/DL (70-400); IMMUNOGLOBULIN G 1360 MG/DL (681-1648); TOTAL PROTEIN 7.3 GM/DL (6.4-8.2)
[2017-07-29 15:36] LABS: IMMUNOGLOBULIN M 6.66 MG/DL (40-230)
[2017-07-30 10:45] LABS: ALBUMIN 4.08 GM/DL (3.29-5.55); ALBUMIN % 55.9 % (55.8-66.1); GAMMA GLOBULIN % 17.4 % (11.1-18.8)
[2017-07-31 00:06] LABS: BETA 2 MICROGLOBULIN 2.1 mg/L (0.6-2.4); FREE KAPPA LIGHT CHAINS SERUM 4.5 mg/L (3.3-19.4); FREE LAMBDA LIGHT CHAINS SERUM 19.9 mg/L (5.7-26.3); KAPPA/LAMBDA RATIO SERUM 0.23 (0.26-1.65)
== END ==
LOC: M LAB REF 13:24
PROVIDERS: ATTEND Internal Medicine Medical Oncology
DX: C90.00 Multiple myeloma not having achieved remission (principal)

== ENCOUNTER → 2017-07-30 | Outpatient (REF) | payer OTHER | LOC: M LAB REF 13:07 | PROVIDERS: ATTEND Internal Medicine Medical Oncology | DX: C90.00 Multiple myeloma not having achieved remission (principal) ==

== ENCOUNTER 2017-08-20 10:04 | Outpatient (CLI) | payer OTHER, MEDICARE ==
[~2017-08-20 10:04] MED LIST changes: +ACETAMINOPHEN TAB 650MG DOSE (2X325MG) PO ONE; +IMMUNE GLOBULIN 10% 10GM 100ML 10 GM in APPROPRIATE DILUENT 1 EA IV ONE; +IMMUNE GLOBULIN 10% 20GM 200ML 20 GM in APPROPRIATE DILUENT 1 EA IV ONE; +SODIUM CHLORIDE 0.9% INJ 10 ML SYR IV SCH; +diphenhydrAMINE 25 MG CAP PO ONE
== END 2017-08-20 14:15 | disposition home or self-care (01) ==
LOC: M INFU 10:04
PROVIDERS: ATTEND Internal Medicine Medical Oncology
DX: C90.00 Multiple myeloma not having achieved remission (principal); Z88.8 Allergy status to other drugs, medicaments and biological substances; Z88.0 Allergy status to penicillin; Z88.3 Allergy status to other anti-infective agents; Z79.82 Long term (current) use of aspirin; Z79.899 Other long term (current) drug therapy; Z79.891 Long term (current) use of opiate analgesic
CPT/HCPCS: 96365; 96366; J1569

== ENCOUNTER → 2017-08-26 | Outpatient (REF) | payer OTHER, MEDICARE ==
[~2017-08-26] MED LIST changes: -ACETAMINOPHEN TAB 650MG DOSE (2X325MG) PO ONE; -IMMUNE GLOBULIN 10% 10GM 100ML 10 GM in APPROPRIATE DILUENT 1 EA IV ONE; -IMMUNE GLOBULIN 10% 20GM 200ML 20 GM in APPROPRIATE DILUENT 1 EA IV ONE; -SODIUM CHLORIDE 0.9% INJ 10 ML SYR IV SCH; -diphenhydrAMINE 25 MG CAP PO ONE
[2017-08-26 14:47] LABS: IMMUNOGLOBULIN A 48.1 MG/DL (70-400); IMMUNOGLOBULIN G 1460 MG/DL (681-1648); TOTAL PROTEIN 6.7 GM/DL (6.4-8.2)
[2017-08-26 14:48] LABS: IMMUNOGLOBULIN M 6.99 MG/DL (40-230)
[2017-08-27 11:04] LABS: ALBUMIN 3.75 GM/DL (3.29-5.55); ALBUMIN % 55.9 % (55.8-66.1); GAMMA GLOBULIN % 18.8 % (11.1-18.8)
[2017-08-29 00:07] LABS: BETA 2 MICROGLOBULIN 1.6 mg/L (0.6-2.4); FREE KAPPA LIGHT CHAINS SERUM 3.9 mg/L (3.3-19.4); FREE LAMBDA LIGHT CHAINS SERUM 14.2 mg/L (5.7-26.3); IMMUNOGLOBULIN D 22.4 mg/dL (<14.11); KAPPA/LAMBDA RATIO SERUM 0.27 (0.26-1.65)
== END ==
LOC: M LAB REF 13:27
PROVIDERS: ATTEND Internal Medicine Medical Oncology
DX: C90.00 Multiple myeloma not having achieved remission (principal)

== ENCOUNTER → 2017-08-29 | Outpatient (CLI) | payer OTHER, MEDICARE | LOC: M RAD 06:41 | PROVIDERS: ATTEND Otolaryngology | DX: H90.42 Sensorineural hearing loss, unilateral, left ear, with unrestricted hearing on the contralateral side (principal) ==

== ENCOUNTER → 2017-09-07 | Outpatient (REF) | payer OTHER, MEDICARE | LOC: M LAB REF 10:45 | PROVIDERS: ATTEND Physician Assistant | DX: N39.0 Urinary tract infection, site not specified (principal) ==

== ENCOUNTER → 2017-09-16 | Outpatient (CLI) | payer OTHER, MEDICARE ==
--- NOTE | 2017-09-16 17:46 | REP ---
CT IACS WITHOUT CONTRAST: HISTORY: Left hearing loss. The internal auditory canal, cochleae, vestibules, and semicircular canals are normal in appearance. The ossicles are normal in configuration and position. The scutum are intact. There are areas of dehiscence in the tegmen bilaterally. The middle ear cavities and mastoid air cells are clear. The visualized sinuses are clear. The nasopharynx is normal in appearance. IMPRESSION: Normal CT IACS. Signed by Ezio Walsh MD 09/17/2017 08:37 A
== END ==
LOC: M RAD 16:18
PROVIDERS: ATTEND Otolaryngology
DX: H90.42 Sensorineural hearing loss, unilateral, left ear, with unrestricted hearing on the contralateral side (principal)

== ENCOUNTER → 2017-09-23 | Outpatient (REF) | payer OTHER, MEDICARE ==
[2017-09-23 14:09] LABS: IMMUNOGLOBULIN A 56.5 MG/DL (70-400); IMMUNOGLOBULIN G 776 MG/DL (681-1648); TOTAL PROTEIN 6.6 GM/DL (6.4-8.2)
[2017-09-24 10:31] LABS: ALBUMIN 3.88 GM/DL (3.29-5.55); ALBUMIN % 58.8 % (55.8-66.1); GAMMA GLOBULIN % 12.9 % (11.1-18.8)
[2017-09-27 00:06] LABS: BETA 2 MICROGLOBULIN 1.8 mg/L (0.6-2.4); FREE KAPPA LIGHT CHAINS SERUM 3.6 mg/L (3.3-19.4); FREE LAMBDA LIGHT CHAINS SERUM 34.4 mg/L (5.7-26.3); IMMUNOGLOBULIN D 74.4 mg/dL (<14.11); KAPPA/LAMBDA RATIO SERUM 0.1 (0.26-1.65)
== END ==
LOC: M LAB REF 12:28
PROVIDERS: ATTEND Internal Medicine Medical Oncology
DX: C90.00 Multiple myeloma not having achieved remission (principal)

== ENCOUNTER 2017-09-26 09:33 | Outpatient (CLI) | payer OTHER, MEDICARE ==
[~2017-09-26] VITALS: Ht 144.8 cm; Wt 53.3 kg
[~2017-09-26 09:33] MED LIST changes: +ACETAMINOPHEN TAB 650MG DOSE (2X325MG) PO ONE; +SODIUM CHLORIDE 0.9% INJ 10 ML SYR IV SCH; +diphenhydrAMINE 25 MG CAP PO ONE
[2017-09-26] MEDS ORDERED: IMMUNE GLOBULIN 10% 20GM 200ML 20 GM in APPROPRIATE DILUENT 1 EA IV ONE (10:00)
[2017-09-26] MEDS ORDERED: IMMUNE GLOBULIN 10% 10GM 100ML 10 GM in APPROPRIATE DILUENT 1 EA IV ONE (10:00)
== END 2017-09-26 13:30 | disposition home or self-care (01) ==
LOC: M INFU 09:33
PROVIDERS: ATTEND Internal Medicine Medical Oncology
DX: C90.00 Multiple myeloma not having achieved remission (principal); Z88.8 Allergy status to other drugs, medicaments and biological substances; Z88.0 Allergy status to penicillin; Z88.3 Allergy status to other anti-infective agents; Z79.82 Long term (current) use of aspirin; Z79.899 Other long term (current) drug therapy
CPT/HCPCS: 96365; 96366; J1569

== ENCOUNTER 2017-10-02 18:01 | Inpatient (IN) | payer OTHER, MEDICARE ==
[~2017-10-02] VITALS: Ht 144.8 cm; Wt 53.0 kg
[2017-10-02] MEDS: GABAPENTIN 100 MG CAP PO SCH (02:00)
[2017-10-02] MEDS: METOPROLOL TART 25 MG TABLET PO SCH (02:00)
[~2017-10-02 18:01] MED LIST changes: -ACETAMINOPHEN TAB 650MG DOSE (2X325MG) PO ONE; -ACYC400T; +ACYC400T PO; -SODIUM CHLORIDE 0.9% INJ 10 ML SYR IV SCH; -diphenhydrAMINE 25 MG CAP PO ONE
[2017-10-02] MEDS ORDERED: NS 1,000 ML IV ONE (18:30)
[2017-10-02] MEDS ORDERED: ASPIRIN 81 MG CHEW TABLET PO ONE (18:30)
[2017-10-02] MEDS ORDERED: IPRATROPIUM 0.5MG/ALBUTEROL 2.5MG INH SOL UD 3ML (DUONEB)(J7620) NEB ONE (19:00)
[2017-10-02 19:34] LABS: VENOUS BASE EXCESS -2.6 (-2.0-2.0); VENOUS O2 SATURATION 84.6 % (60.0-80.0); VENOUS PARTIAL PRESSURE CO2 38.1 mmHg (38.0-50.0); VENOUS PARTIAL PRESSURE O2 50.8 mmHg (30.0-50.0); VENOUS STANDARD HCO3 22.1 MEQ/L; VENOUS TOTAL CO2 23.3 MEQ/L (24.0-28.0)
[2017-10-02 19:36] LABS: BASO % 0.2 % (0.0-1.0); EOS # 0.1 10^3/uL (0.0-0.50); EOS % 1.2 % (0.0-3.0); LYMPH % 10.9 % (24.0-44.0); MEAN CORPUSCULAR HEMOGLOBIN 30.2 pg (27.0-33.0); MEAN CORPUSCULAR HGB CONC 32.8 g/dl (32.0-36.5); MEAN CORPUSCULAR VOLUME 92.2 fl (80.0-96.0); MONO # 0.8 10^3/uL (0.0-0.8); MONO % 8.8 % (0.0-5.0); NEUTROPHILS # 7.1 10^3/uL (1.8-7.7); NEUTROPHILS % 77.9 % (36.0-66.0); PLATELET COUNT, AUTOMATED 108 10^3/uL (150-450); RED CELL DISTRIBUTION WIDTH 12.8 % (11.5-14.5); WHITE BLOOD COUNT 9.1 10^3/uL (4.0-10.0)
[2017-10-02 19:47] LABS: INR 1.31
--- NOTE | 2017-10-02 19:48 | ECGEPIP ---
Stationary ECG Study [facility] - ED Test Date: 2017-10-02 Pat Name: FELICE BLACK Department: Room: - Gender: F Physiotherapist'S Assistant: HUY : 1955 Requested By: TAYLOR BARRIENTOS Order Number: [id number] Reading MD: Nba Dupont Measurements Intervals [place] Rate: 68 P: 11 ND: 168 QRS: 3 QRSD: 88 T: 28 QT: 423 QTc: 450 Interpretive Statements SINUS RHYTHM NSTTW ABNORMALITIES SIMILAR TO 04/10/17 Electronically Signed On 10-02-2017 19:48:00 EST by Nba Dupont
[2017-10-02 20:03] LABS: ALBUMIN 2.8 GM/DL (3.2-5.2); ALBUMIN/GLOBULIN RATIO 0.78 (1.00-1.93); ALKALINE PHOSPHATASE 47 U/L (45-117); ALT/SGPT 10 U/L (12-78); ANION GAP 6 MEQ/L (8-16); AST/SGOT 10 U/L (7-37); BILIRUBIN,DIRECT 0.1 MG/DL (0.0-0.2); BILIRUBIN,TOTAL 0.6 MG/DL (0.2-1.0); BLOOD UREA NITROGEN 18 MG/DL (7-18); CALCIUM LEVEL 7.5 MG/DL (8.5-10.1); CARBON DIOXIDE LEVEL 26 MEQ/L (21-32); CHLORIDE LEVEL 106 MEQ/L (98-107); CREATININE FOR GFR 0.71 MG/DL (0.55-1.02); GLOMERULAR FILTRATION RATE > 60.0 (>51); GLUCOSE, FASTING 79 MG/DL (70-105); POTASSIUM SERUM 3.9 MEQ/L (3.5-5.1); SODIUM LEVEL 138 MEQ/L (136-145); TOTAL PROTEIN 6.4 GM/DL (6.4-8.2)
[2017-10-02] MEDS ORDERED: ISOVUE-370 76% 100ML VIAL (Q9967) As Ordered ONE (20:32)
[2017-10-02] MEDS ORDERED: ASPIRIN 81 MG ENTERIC TAB PO SCH (21:00)
[2017-10-02] MEDS ORDERED: ASPI81TAEC PO (21:49)
[2017-10-02] MEDS ORDERED: POMA3CAP PO (21:49)
[2017-10-02] MEDS ORDERED: PRIV5INJ IV (21:51)
--- NOTE | 2017-10-02 22:40 | REPUSA ---
CLINICAL HISTORY: Dyspnea, elevated exclude PE. TECHNIQUE: Multiple incremental axial, coronal and oblique images are obtained from the thoracic inle t to the upper abdomen. Intravenous contrast material was administered as per pulmonary embolism prot ocol. COMMENTS: There is excellent opacification of pulmonary arterial system without evidence for pulmonary embolism . Aorta is of normal caliber without evidence for dissection or aneurysm. There is no evidence of pleural or parenchymal mass. There are no pleural effusions. There is no evid ence of hilar or mediastinal lymphadenopathy. The heart is enlarged. Congestive changes are noted. Sm all bilateral pleural effusions are noted. Images of the upper abdomen demonstrate no evidence of adrenal mass. The bony structures are free of lytic or blastic lesions. Multilevel degenerative changes are seen in volving the visualized thoracolumbar spine. Compression fractures of multiple thoracic veretebral bod ies noted. Exagerated kyphosis is noted. Scattered calcifications are seen involving the aorta and major branches compatible with atherosclero sis. IMPRESSION: No evidence for pulmonary embolism. The heart is enlarged. Congestive changes are noted. Small bilateral pleural effusions are noted. Thank you for your kind referral of this patient.
[2017-10-02] MEDS ORDERED: PROCHLORPERAZINE 5 MG TAB (S0183) PO PRN (22:45)
[2017-10-02] MEDS ORDERED: FENTANYL REMOVAL DOCUMENTATION MISC XX SCH (22:45)
[2017-10-02] MEDS ORDERED: PERCOCET 5MG/325MG TAB PO PRN (22:45)
[2017-10-02] MEDS ORDERED: ONDANSETRON 4MG/2ML VIAL (J2405) IV PRN (22:45)
[2017-10-02] MEDS ORDERED: LEVALBUTEROL 1.25 MG/0.5 ML CONCENTRATE NEB INH PRN (23:15)
[2017-10-03] VITALS (7 sets, daily range): BP systolic 112–140; BP diastolic 68–89; O2SAT 92
[2017-10-03] MEDS: guaiFENesin ER 600 MG TAB PO SCH ×3 (04:30→20:44)
[2017-10-03] MEDS: ACYCLOVIR 200 MG CAPSULE PO SCH ×3 (04:31→20:44)
[2017-10-03 05:55] LABS: MEAN CORPUSCULAR HEMOGLOBIN 29.2 pg (27.0-33.0); MEAN CORPUSCULAR HGB CONC 31.5 g/dl (32.0-36.5); MEAN CORPUSCULAR VOLUME 92.8 fl (80.0-96.0); RED CELL DISTRIBUTION WIDTH 12.9 % (11.5-14.5); WHITE BLOOD COUNT 7.2 10^3/uL (4.0-10.0)
[2017-10-03 06:08] LABS: ANION GAP 7 MEQ/L (8-16); BLOOD UREA NITROGEN 18 MG/DL (7-18); CALCIUM LEVEL 7.2 MG/DL (8.5-10.1); CARBON DIOXIDE LEVEL 26 MEQ/L (21-32); CHLORIDE LEVEL 109 MEQ/L (98-107); CREATININE FOR GFR 0.74 MG/DL (0.55-1.02); GLOMERULAR FILTRATION RATE > 60.0 (>51); GLUCOSE, FASTING 52 MG/DL (70-105); POTASSIUM SERUM 4.2 MEQ/L (3.5-5.1); SODIUM LEVEL 142 MEQ/L (136-145)
[2017-10-03 06:51] LABS: PLATELET COUNT, AUTOMATED 94 10^3/uL (150-450)
[2017-10-03 06:52] LABS: IMMATURE PLATELET FRACTION % 4.7 % (0.0-9.6)
[2017-10-03] MEDS: IPRATROPIUM 0.5MG/ALBUTEROL 2.5MG INH SOL UD 3ML (DUONEB)(J7620) NEB SCH ×4 (07:31→20:00)
--- NOTE | 2017-10-03 07:47 | REP ---
REASON FOR EXAM: Chest pain. COMPARISON: Multiple, the latest 08/12/2017. Patient is known to have diffuse multiple myeloma. The technique utilized in obtaining the radiograph has magnified the cardiac silhouette and accentuated the interstitial markings. The tip of the central venous catheter remains in the superior vena cava. The tracheostomy tube is unchanged. There is no change in the appearance of the osseous structures. Diffuse mottled low density areas are seen scattered throughout all osseous structures secondary to known multiple myeloma. There is a subtle haziness to the right lower lung field which was present on a prior exam and likely accentuated by technical factors today compared to the prior. Today's examination was obtained with increased cephalic angulation accentuating the finding. I see no definite new patchy opacities or pleural effusions. There is global cardiomegaly status quo. IMPRESSION: Marked chronic changes which appear stable as described above. Signed by Andres Cardoza DO 10/04/2017 01:57 P
--- NOTE | 2017-10-03 08:49 | HPE ---
DATE OF ADMISSION: 10/02/2017 Ms. Lacey is a patient of Dr. Real, Dr. Howell, Dr. Bahena. CHIEF COMPLAINT: Chest pain. SUMMARY OF HER PRESENTATION: This is a 61-year-old with multiple myeloma who has not been feeling well for a couple of days. Last evening she developed the sensation that there was a "rock on my chest on the right side." It came on gradually while she was lying in bed. It built up to a 6 out of 10 pressure that lasted through the night and for most of the day today. It may have been associated with some thickened secretions. The patient did not notice that herself. Her noticed that as he was suctioning her trach. Also, last evening, she felt as though someone had punched her in the stomach. She described periumbilical pressure that lasted until the middle of the night. Her symptoms were associated with a sensation of dizziness, which she describes as the room was spinning. She did not feel as though she was going to pass out. She has chronic cough with production of sputum, which she does not feel has changed. Her sputum at baseline is tannish. Of note, her is currently ill with what appears to be a viral upper respiratory infection. She has not had her flu shot this year, but her has. Currently, she is feeling somewhat better. PAST MEDICAL HISTORY: Notable for: 1. Multiple myeloma diagnosed in 2010 with relapse in 2016. 2. Severe immunosuppression. 3. Left hip avascular necrosis. 4. 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 6. History of flail chest requiring tracheostomy. 7. Hypercalcemia. 8. History of renal failure. 10. Hypertension. 11. Osteoporosis. 12. History of right upper extremity deep vein thrombosis (DVT). 13. T4 kyphosis and rib fracture with restrictive lung disease. 14. Depression. 15. 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 16. History of actinomycosis of the jaw. SURGICAL HISTORY: 1. Percutaneous endoscopic gastrostomy (PEG) tube, which has been replaced. 2. Tracheostomy. 3. Eye surgery. SOCIAL HISTORY: She does not drink or smoke. Lives with her and daughter. ALLERGIES: THe patient has listed allergies to XANAX, AUGMENTIN, LORAZEPAM. FAMILY HISTORY: Unremarkable given her past medical history. MEDICATIONS: At home currently include: - Kyprolis - dexamethasone before Kyprolis - Privigen - Zofran as needed - acyclovir 400 mg by mouth twice a day - aspirin 81 mg by mouth at night - Paradex rinse - citalopram 40 mg daily - Fentanyl 100 mcg per hour patch every third day - Neurontin 100 mg by mouth twice a day - guaifenesin ER 600 mg by mouth twice a day - Prevacid 30 mg by mouth twice a day - magnesium oxide 400 mg by mouth daily - metoprolol tartrate 25 mg by mouth twice a day - Percocet 10/325 mg one every 6 hours as needed for pain. She does not take that very often - Pomalyst 3 mg by mouth at night - prochlorperazine 10 mg by mouth three times a day as needed for nausea REVIEW OF SYSTEMS: Notable for no headache. No visual changes. No runny nose. No sore throat. Chronic cough. Chest pain, which is improved from its maximum, still somewhat uncomfortable. Abdominal pain, which has resolved. No change in her bowel or bladder habits. Otherwise, unremarkable. PHYSICAL EXAMINATION: Temperature 99.1, pulse 64, respiratory rate 18, blood pressure 156/82, 95% on trach collar. She is awake, pleasantly interactive. Remembers me from previous encounters. HEENT: Head is normocephalic. Sinuses nontender. Pupils are equal, round and reactive. Anicteric. She has moist mucous membranes. NECK: Supple. Tracheostomy is in place. LUNGS: Breathing is symmetrical. 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 Coarse upper airway sounds are noted. There are no wheezes. HEART: Distant sounding. Normal S1, S2. Not tachycardic. Radial pulses 2+. Capillary refill is less than 2 seconds. ABDOMEN: Soft, doughy, nontender to deep palpation. There are active bowel sounds. EXTREMITIES: She is moving all four extremities. She has normal mood and affect. White cell count 9.1, hemoglobin 11.7, and platelets of 108. INR 1.3, BUN 18, creatinine 0.7, calcium 7.5 with an albumin of 2.8. CK is 20, troponin I 0.02, lipase 68. VBG is unremarkable. Respiratory panel is pending. CT angio is pending. Chest x-ray does not show any infiltrate. ASSESSMENT: This is a 61-year-old with chest pain and hypoxia in the setting of immunocompromise for multiple myeloma. PLAN: 1. Respiratory. We need to rule out the possibility of pulmonary embolism, as she is on multiple medications which can cause thrombosis. There is no obvious evidence of deep vein thrombosis (DVT) in the physical examination. CT angio is pending. We will cycle troponins with repeat draw in the morning. We will repeat an EKG in the morning as well, monitor the patient on telemetry tonight. I am suspicious that the patient has similar upper respiratory infection to her , which would be the best possible diagnosis given her immunocompromise. Respiratory panel is pending. No role for antibiotics currently. It is also possible that the patient has mucous plugging from viral URI. She will be monitored clinically. I have asked Dr. Real to see the patient in consultation to assess her tracheostomy. The patient's is under the impression that tracheostomy is due to be changed, perhaps that is something that can be accomplished while in the hospital. It is also reasonable to give the patient her flu vaccine while in the hospital, she is yet to get it. 2. The patient has multiple myeloma. No role for oncologic consultation at this point. We will continue her home therapy with Pomalyst, which the will bring in from home. She will likely not be in the hospital long enough to require her Privigen or Kyprolis. If she is in the hospital and requires her Kyprolis, she does take dexamethasone ahead of time. Should she develop hypotension, we could consider adrenal insufficiency. 3. Deep vein thrombosis (DVT) prophylaxis will be in the form of Lovenox. 4. The patient has osteonecrosis of the jaw with chronic draining ulcers on her chin. No evidence of ongoing infection, although she does have a previous history of actinomycosis. 5. The patient has a history of hypertension. Blood pressure is reasonably well controlled. Continue beta blockade with hold parameters. 6. The patient has a history of depression. Continue home medications. 7. The patient has a history of severe restrictive lung disease due to kyphotic scoliosis. 8. The patient appears to have normocytic anemia, most likely anemia of chronic disease. Can defer further workup to outpatient management. The patient is signed out to Dr. Gomez for the morning.
[2017-10-03] MEDS: METOPROLOL TART 25 MG TABLET PO SCH ×2 (09:00→20:48)
[2017-10-03] MEDS: LANSOPRAZOLE SUSPENSION 30 MG/10 ML ORAL SYRINGE (FIRST-LANSOPRAZOLE) PO SCH ×2 (09:17→22:31)
[2017-10-03] MEDS: ENOXAPARIN 30 MG/0.3 ML SYR (J1650) SC SCH (09:18)
[2017-10-03] MEDS: GABAPENTIN 100 MG CAP PO SCH ×2 (09:19→20:44)
[2017-10-03] MEDS: CitaloPRAM (CeleXA) 20 MG TAB PO SCH (09:20)
[2017-10-03] MEDS: MAGNESIUM OXIDE 400 MG TAB (MAG-OX) PO SCH (09:20)
[2017-10-03] MEDS: CHLORHEXIDINE ORAL RINSE 0.12%/15ML 120ML BOTTLE SSP SCH ×2 (09:21→20:45)
--- NOTE | 2017-10-03 12:25 | IPNPDOC ---
Date Seen The patient was seen on 10/03/17. Progress Note SUBJECTIVE: Patient is a 61 yo pleasant female that's familiar to the hospitalist service. Admitted last evening for acue hypoxia and suspected mucus plugging. Denies: CP, hemoptysis, f/c/r, n/v/d. OBJECTIVE PHYSICAL EXAMINATION: VITAL SIGNS: Please see below. HEENT: Head is normocephalic. Sinuses nontender. Pupils are equal, round and reactive. Anicteric. She has moist mucous membranes. NECK: Supple. Tracheostomy is in place. LUNGS: Breathing is symmetrical. Her chest wall is kyphoscoliosis. Coarse upper airway sounds are noted. There are no wheezes. HEART: RRR, Radial pulses 2+. ABDOMEN: Soft, doughy, nontender to deep palpation. There are active bowel sounds. EXTREMITIES: She is moving all four extremities. PSYCH: She has normal mood and affect. LABORATORY DATA: Please see below. MICROBIOLOGY: Please see below. DVT prophylaxis ordered yes ASSESSMENT AND PLAN: This is a 61-year-old female admitted for acute hypoxia related to suspected mucus plugging involving her chronic tracheostomy.. PROBLEMS: 1. Acute Hypoxia and suspected mucus plugging: not currently in extremis. Likely Acute Bronchitis: started on Omnicef 300mg PO bid. Spoke to Dr. Real who will see on consult later this morning and eval for possible change of trache and possible bronchoscopy (if needed). Appreciate his input. 2. Multiple myeloma diagnosed in 2010 with relapse in 2016: no current issues 3. Severe immunosuppression: Outpatient follow-up 4. Left hip avascular necrosis: No current issues 5. 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 No signs of infection 6. Sydenham chorea: Stable. 7. History of flail chest requiring tracheostomy: As above. 8. Hypercalcemia: No current issues. 9. History of renal failure: She is at her baseline. 11. Hypertension: Stable. 12. Osteoporosis: Continue current treatment. 13. History of right upper extremity deep vein thrombosis (DVT): Recurrent issue and has resolved by history. 14. T4 kyphosis and rib fracture with restrictive lung disease: Currently with tracheostomy. 15. Depression: She is pleasant. Affect is appropriate. No suicidal ideation. No audiovisual hallucinations. 16. 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 17. History of actinomycosis of the jaw. 18. Chronic anemia, normocytic and can have outpatient follow-up / workup. DISPOSITION: Pending Dr. Real's evaluation. She could likely be discharged either later today or first thing tomorrow morning depending on how she does clinically. VS, I&O, 24H, Fishbone Vital Signs/I&O Vital Signs Date Time Temp Pulse Resp B/P (MAP) Pulse Ox O2 Delivery O2 Flow Rate FiO2 10/03/17 09:00 57 122/74 10/03/17 08:00 97.8 16 99 10.0 50 10/03/17 05:48 Trach Collar I&O- Last 24 Hours up to 6 AM 10/03/17 06:00 Intake Total 1120 ml Output Total 0 ml Balance 1120 ml Laboratory Data 24H LABS Laboratory Tests 2 10/02/17 19:20: Immature Granulocyte % (Auto) 1.0H, White Blood Count 9.1, Red Blood Count 3.21L , Hemoglobin 9.7L, Hematocrit 29.6L, Mean Corpuscular Volume 92.2, Mean Corpuscular Hemoglobin 30.2, Mean Corpuscular Hemoglobin Concent 32.8, Red Cell Distribution Width 12.8, Platelet Count 108L, Neutrophils (%) (Auto) 77.9H, Lymphocytes (%) (Auto) 10.9L, Monocytes (%) (Auto) 8.8H, Eosinophils (%) (Auto) 1.2, Basophils (%) (Auto) 0.2, Neutrophils # (Auto) 7.1, Lymphocytes # (Auto) 1.0L, Monocytes # (Auto) 0.8, Eosinophils # (Auto) 0.1, Basophils # (Auto) 0.0, Immature Granulocyte # (Auto) 0.1H, Nucleated Red Blood Cells % (auto) 0.0, Prothrombin Time 16.6H, Prothromb Time International Ratio 1.31, Blood Gas Bicarbonate Standard 22.1, Venous Blood pH 7.382, Venous Blood Partial Pressure CO2 38.1, Venous Blood Partial Pressure O2 50.8H, Venous Blood Total Carbon Dioxide 23.3L, Venous Blood HCO3 22.1L, Venous Blood Oxygen Saturation 84.6H, Venous Blood Base Excess -2.6L, Anion Gap 6L, Glomerular Filtration Rate > 60.0 , Calcium Level 7.5L, Aspartate Amino Transf (AST/SGOT) 10, Alanine Aminotransferase (ALT/SGPT) 10L, Alkaline Phosphatase 47, Total Bilirubin 0.6, Direct Bilirubin 0.1, Total Creatine Kinase 20L, Creatine Kinase MB 1.0, Creatine Kinase MB Relative Index 5.00H, Troponin I 0.02, Total Protein 6.4, Albumin 2.8L, Albumin/Globulin Ratio 0.78L, Lipase 68L 10/03/17 05:36: Nucleated Red Blood Cells % (auto) 0.0, Anion Gap 7L, Glomerular Filtration Rate > 60.0, Calcium Level 7.2L, Total Creatine Kinase 21L, Creatine Kinase MB 1.0, Creatine Kinase MB Relative Index 4.76H, Troponin I 0.02, Immature Platelet Fraction 4.7, Blood Urea Nitrogen 18, Creatinine 0.74, Sodium Level 142 , Potassium Level 4.2, Chloride Level 109H, Carbon Dioxide Level 26 CBC/BMP Laboratory Tests 10/02/17 19:20 Red Blood Count 3.21 L, Mean Corpuscular Volume 92.2, Mean Corpuscular Hemoglobin 30.2, Mean Corpuscular Hemoglobin Concent 32.8, Red Cell Distribution Width 12.8, Neutrophils (%) (Auto) 77.9 H, Lymphocytes (%) (Auto) 10.9 L, Monocytes (%) (Auto) 8.8 H, Eosinophils (%) (Auto) 1.2, Basophils (%) ( Auto) 0.2, Neutrophils # (Auto) 7.1, Lymphocytes # (Auto) 1.0 L, Monocytes # ( Auto) 0.8, Eosinophils # (Auto) 0.1, Basophils # (Auto) 0.0 10/03/17 05:36 Red Blood Count 3.18 L, Mean Corpuscular Volume 92.8, Mean Corpuscular Hemoglobin 29.2, Mean Corpuscular Hemoglobin Concent 31.5 L, Red Cell Distribution Width 12.9, Calcium Level 7.2 L Microbiology Microbiology 10/02/17 Respiratory Virus Panel (PCR) (XU) - Final, Complete ELISHA VELAZQUEZ DO Oct 03, 2017 12:25
[2017-10-03] MEDS: CEFDINIR 300 MG CAP (OMNICEF) PO SCH ×2 (16:07→20:44)
--- NOTE | 2017-10-03 19:12 | ECGEPIP ---
Stationary ECG Study [facility] Test Date: 2017-10-03 Pat Name: FELICE BLACK Department: Room: V5132-17 Gender: F Outcomes Manager: KENNEDI : 1955 Requested By: ALVARADO Barragan Order Number: [id number] Reading MD: Alvarado Rock Measurements Intervals [place] Rate: 54 P: 15 FL: 181 QRS: -6 QRSD: 88 T: -5 QT: 504 QTc: 481 Interpretive Statements SINUS BRADYCARDIA PROLONGED QT INTERVAL Nonspecific T wave abnormality Electronically Signed On 10-03-2017 19:12:01 EST by Alvarado Rock
[2017-10-03] MEDS ORDERED: fentaNYL 100 MCG/HR PATCH TD SCH (20:00)
[2017-10-03] MEDS ORDERED: ASPIRIN 81 MG ENTERIC TAB PO SCH (21:00)
[2017-10-04] MEDS ORDERED: SLF 3 ML SYR IV PRN (00:45)
[2017-10-04 04:00] VITALS: BP 127/72
[2017-10-04 05:43] LABS: MEAN CORPUSCULAR HEMOGLOBIN 29.5 pg (27.0-33.0); MEAN CORPUSCULAR VOLUME 92.4 fl (80.0-96.0); RED CELL DISTRIBUTION WIDTH 12.7 % (11.5-14.5)
[2017-10-04 05:44] LABS: PLATELET COUNT, AUTOMATED 94 10^3/uL (150-450)
[2017-10-04 05:59] LABS: ANION GAP 5 MEQ/L (8-16); BLOOD UREA NITROGEN 17 MG/DL (7-18); CALCIUM LEVEL 7.8 MG/DL (8.5-10.1); CARBON DIOXIDE LEVEL 28 MEQ/L (21-32); CHLORIDE LEVEL 107 MEQ/L (98-107); CREATININE FOR GFR 0.75 MG/DL (0.55-1.02); GLOMERULAR FILTRATION RATE > 60.0 (>51); GLUCOSE, FASTING 74 MG/DL (70-105); POTASSIUM SERUM 3.9 MEQ/L (3.5-5.1); SODIUM LEVEL 140 MEQ/L (136-145)
[2017-10-04] MEDS ORDERED: SLF 3 ML SYR IV SCH (06:00)
[2017-10-04] MEDS: IPRATROPIUM 0.5MG/ALBUTEROL 2.5MG INH SOL UD 3ML (DUONEB)(J7620) NEB SCH ×2 (07:23→11:26)
[2017-10-04 08:00] VITALS: BP 113/62
[2017-10-04] MEDS ORDERED: ZITHTAB2 PO (08:33)
[2017-10-04] MEDS ORDERED: INFLUENZA QUADRIVALENT PF VACCINE 0.5ML SYRINGE (90686) IM ONE (09:00)
[2017-10-04] MEDS: ACYCLOVIR 200 MG CAPSULE PO SCH (09:16)
[2017-10-04 09:17] VITALS: BP 113/62
[2017-10-04] MEDS: guaiFENesin ER 600 MG TAB PO SCH (09:17)
[2017-10-04] MEDS: METOPROLOL TART 25 MG TABLET PO SCH (09:17)
[2017-10-04] MEDS: CHLORHEXIDINE ORAL RINSE 0.12%/15ML 120ML BOTTLE SSP SCH (09:17)
[2017-10-04] MEDS: MAGNESIUM OXIDE 400 MG TAB (MAG-OX) PO SCH (09:17)
[2017-10-04] MEDS: CEFDINIR 300 MG CAP (OMNICEF) PO SCH (09:17)
[2017-10-04] MEDS: CitaloPRAM (CeleXA) 20 MG TAB PO SCH (09:17)
[2017-10-04] MEDS: GABAPENTIN 100 MG CAP PO SCH (09:17)
[2017-10-04] MEDS: LANSOPRAZOLE SUSPENSION 30 MG/10 ML ORAL SYRINGE (FIRST-LANSOPRAZOLE) PO SCH (09:18)
[2017-10-04] MEDS: ENOXAPARIN 30 MG/0.3 ML SYR (J1650) SC SCH (09:19)
--- NOTE | 2017-10-04 12:22 | DS.PDOC ---
Discharge Summary General Date of Admission Oct 02, 2017 at 22:39 Date of Discharge Oct 04, 2017 Primary Care Physician: CAMRYN AMBROSIO MD Attending Physician: ELISHA VELAZQUEZ DO Specialist/Consultants Involve: Chad Real M.D. Specialist/Consultants Involve ENT: Carlos Galicia MD Onc: Christa Howell MD Discharge Summary CONSULTS: Thoracic Surgery: Dr. Real ENT: Dr. Jimenez PROCEDURES: None COMPLICATIONS: None ADMISSION / DISCHARGE DIAGNOSIS: 1. Acute Hypoxia and suspected mucus plugging: not currently in extremis. Likely Acute Bronchitis: started on Omnicef 300mg PO bid. Spoke to Dr. Real who will see on consult later this morning and eval for possible change of trache and possible bronchoscopy (if needed). Appreciate his input. 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 Appreciate Dr. Galicia's input and recommends follow up at [facility] ENT (have better capabilities ) 3. Multiple myeloma diagnosed in 2010 with relapse in 2016: no current issues 4. Severe immunosuppression: Outpatient follow-up 5. Left hip avascular necrosis: No current issues 6. 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 No signs of infection 7. Sydenham chorea: Stable. 8. History of flail chest requiring tracheostomy: As above 9. Hypercalcemia: No current issues. 10. History of renal failure: She is at her baseline. 11. Hypertension: Stable. 12. Osteoporosis: Continue current treatment. 13. History of right upper extremity deep vein thrombosis (DVT): Recurrent issue and has resolved by history. 14. T4 kyphosis and rib fracture with restrictive lung disease: Currently with tracheostomy. 15. Depression: She is pleasant. Affect is appropriate. No suicidal ideation. No audiovisual hallucinations. 16. 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 17. History of actinomycosis of the jaw. 18. Chronic anemia, normocytic and can have outpatient follow-up / workup. BRIEF HOSPITAL COURSE: 61yo female that is familiar to the hospitalist service, presented to ED ON with increasing difficulty breathing. Admitted for further evaluation of her acute hypoxia and felt that her tracheostomy needed evaluated and possible need for bronchoscopy by Dr. Real. She was started on Antibiotics for acute bronchitis and mucus cleared with deep suction. There was concern for a Zenker Diverticulum on her Chest CT. ENT was consulted and did not feel that this would require immediate attention and further recommended she follow up with ENT at [facility], since we don't have the operative capabilities at present for this. Otherwise, she looks good this morning and back to her baseline. PHYSICAL EXAMINATION ON DISCHARGE: VITAL SIGNS: Please see below. PHYSICAL EXAMINATION: VITAL SIGNS: Please see below. HEENT: Head is normocephalic. Sinuses nontender. Pupils are equal, round and reactive. Anicteric. She has moist mucous membranes. NECK: Supple. Tracheostomy is in place and patent LUNGS: Breathing is symmetrical. Her chest wall is kyphoscoliosis. Coarse upper airway sounds are noted. There are no wheezes. HEART: RRR, Radial pulses 2+. ABDOMEN: Soft, doughy, nontender to deep palpation. There are active bowel sounds. EXTREMITIES: She is moving all four extremities. PSYCH: She has normal mood and affect. DISCHARGE MEDICATIONS: See below and added Zithromax Tripack DISCHARGE CONDITION: Good DISPOSITION: Discharge to home DISCHARGE INSTRUCTIONS: Activity: as tolerated Diet: as before Follow up: 1 week with PCP, Keep regular follow up with Dr. Real. Seek medical attention should symptoms worsen or progress. Voiced understanding by patient and/or caregiver. TRANSITION OF CARE ISSUES: Will need referral from PCP to [facility] E[facility] TIME SPENT ON DISCHARGE: greater than 35 minutes Please CC: Dr. Josef Galicia Vital Signs/I&Os Vital Signs Date Time Temp Pulse Resp B/P (MAP) Pulse Ox O2 Delivery O2 Flow Rate FiO2 10/04/17 09:17 69 113/62 10/04/17 08:00 Trach Collar 10/04/17 08:00 98.6 20 95 10.0 50 I&O- Last 24 Hours up to 6 AM 10/04/17 06:00 Intake Total 980 ml Output Total 450 ml Balance 530 ml Laboratory Data Labs 24H Laboratory Tests 2 10/04/17 05:28: Nucleated Red Blood Cells % (auto) 0.0, Anion Gap 5L, Glomerular Filtration Rate > 60.0, Blood Urea Nitrogen 17, Creatinine 0.75, Sodium Level 140, Potassium Level 3.9, Chloride Level 107, Carbon Dioxide Level 28, Calcium Level 7.8L CBC/BMP Laboratory Tests 10/04/17 05:28 Red Blood Count 3.15 L, Mean Corpuscular Volume 92.4, Mean Corpuscular Hemoglobin 29.5, Mean Corpuscular Hemoglobin Concent 32.0, Red Cell Distribution Width 12.7, Calcium Level 7.8 L Microbiology Microbiology 10/03/17 Gram Stain - Final, Resulted 10/03/17 Sputum Culture, Resulted Pending 10/02/17 Respiratory Virus Panel (PCR) (XU) - Final, Complete Discharge Medications Scheduled (Pomalyst) 3 Mg Cap, 3 MG PO QHS, (Reported) Acyclovir (Acyclovir) 400 Mg Tab, 400 MG PO BID, (Reported) Aspirin (Aspirin EC) 81 Mg Tabec, 81 MG PO QHS, (Reported) Azithromycin (Zithromax Tri-Jorge) 500 Mg Tab, 500 MG PO DAILY Carfilzomib Injection (Kyprolis) 30 Mg Juana, 30 MG IV ASDIRECTED, (Reported) GETS MONDAYS AND TUESDAYS FOR 3 WEEKS AND THEN ONE WEEK OFF Chlorhexidine Gluconate (Peridex) 0.12 % Juana, 5 ML SSP BID, (Reported) Citalopram Hydrobromide (Citalopram Hydrobromide) 40 Mg Tab, 40 MG PO DAILY, ( Reported) Dexamethasone (Dexamethasone) 2 Mg Tab, 10 MG PO ASDIRECTED, (Reported) TAKES ON SATURDAY AND SATURDAY NIGHTS BEFORE THE KYPROLIS INJ THE NEXT DAY Fentanyl (Duragesic) 100 Mcg/Hr Dis, 100 MCG TD Q3RD, (Reported) Gabapentin (Gabapentin) 100 Mg Cap, 100 MG PO BID, (Reported) Guaifenesin (Guaifenesin ER) 600 Mg Tab, 600 MG PO BID, (Reported) IV Immune Globulin (Euceda) (Privigen) 5 Gm/50 Ml Inj, Unknown Dose IV ASDIRECTED, (Reported) GETS IV ONCE A MONTH Lansoprazole (Lansoprazole) 30 Mg Cap, 30 MG PO BID, (Reported) Magnesium Oxide (Magnesium Oxide 400) 400 Mg Tab, 400 MG PO DAILY, (Reported) Metoprolol Tartrate (Metoprolol Tartrate) 25 Mg Tab, 25 MG PO BID, (Reported) Scheduled PRN Ondansetron HCl (Zofran) 8 Mg Tab, 8 MG PO QID PRN for NAUSEA, (Reported) Oxycodone/Acetaminophen (Percocet 10-325 mg) 1 Tab Tab, 1 TAB PO Q6H PRN for PAIN, (Reported) COULD TAKE UP TO TWO TABLETS PER DOSE Prochlorperazine Maleate (Prochlorperazine Maleate) 10 Mg Tab, 10 MG PO TID PRN for NAUSEA, (Reported) Allergies Coded Allergies: Clavulanic Acid (Verified Allergy, Unknown, 02/27/17) Penicillins (Verified Allergy, Unknown, RASH - TAKES CEFDINIR WITH NO ISSUES, 07/22/17) Alprazolam (Verified Adverse Reaction, Intermediate, INCREASED AGITATION, 02/27/17) Lorazepam (Verified Adverse Reaction, Intermediate, INCREASED AGITATION, ) ELISHA VELAZQUEZ DO Oct 04, 2017 12:21
--- NOTE | 2017-10-05 09:28 | CR ---
DATE OF CONSULTATION: 10/03/2017 The patient is seen at the request of the hospitalist service, Dr. Rock, for increasing shortness of breath and chest pain, along with evaluation of her chronic indwelling tracheostomy tube. HISTORY OF PRESENT ILLNESS: The patient is a 61-year-old white female with a long history of multiple myeloma, which essentially kept her in the hospital for approximately 6 months with severe lordosis and right angling of her spine from the myeloma destruction of a vertebra. She has a chronic indwelling tracheostomy, basically to stent the trachea, as she had dynamic obstruction. She has been actually doing fairly well but started to complain yesterday of a severe pressure-type pain in her chest in the anterior precordium, which she states felt like a "rock on my chest." It was quite severe. It was also accompanied by a change in her sputum, both in consistency and color. Her sputum secretions became thickened and changed from a usual [id number] color to a brown color. She has been getting more short of breath in the last week. She denies fevers, chills, or sweats. She states that she continues to eat well and is maintaining her weight. Her past medical history is multiple myeloma in 2010, relapse in 2016, immunosuppression, left hip avascular necrosis, osteonecrosis of the mandible secondary to bisphosphonates, a prior episode of Sydenham chorea, hypercalcemia, history of renal failure during that long hospitalization, hypertension, osteoporosis. PRIOR SURGICAL HISTORY: A percutaneous endoscopic gastrostomy (PEG) tube which has been discontinued, her chronic tracheostomy. HABITS: Does not drink. Does not smoke. ALLERGIES: XANAX, AUGMENTIN, LORAZEPAM. MEDICATIONS AT HOME: - - Kyprolis - dexamethasone prior to the Kyprolis - Privigen - acyclovir 400 mg twice a day - aspirin 81 mg daily - citalopram 40 mg daily - Fentanyl 100 mcg patch every 3 days - Neurontin 100 mg twice a day - Prevacid 30 mg twice a day - magnesium oxide 400 mg daily - metoprolol 25 mg twice a day - Percocet 10/325 mg every 6 hours as needed pain REVIEW OF SYSTEMS: CONSTITUTIONAL: See history of present illness (HPI). EYES: Without diplopia. Without amaurosis fugax. Without jaundice. NOSE: Without epistaxis. MOUTH: See HPI. Still has her own teeth. RESPIRATORY: See HPI. CARDIAC: See HPI. Without orthopnea or paroxysmal nocturnal dyspnea. Without peripheral edema. GASTROINTESTINAL (GI): Without nausea, vomiting, diarrhea, constipation, melena, hematochezia. NEUROLOGIC: Without paresthesias, paralyses, or seizures. Has had the history of Sydenham in the past secondary to a medication. PSYCHIATRIC: Without pathological anxieties, depressions, or psychoses. PHYSICAL EXAMINATION: A chronically ill white female, in no acute distress. VITAL SIGNS: Temperature is 99.9 with a heart rate of 67, respiratory rate of 20 without the use of accessory muscles, who is 96% saturated on room air, intermittently with a trache collar of oxygen (O2) 50%. EYES: Pupils equal, round, and reactive to light. Extraocular movements intact. Sclerae anicteric. NOSE: Without deformity. MOUTH: Shows her mucous membranes to be pink and moist. Lips and commissures without lesions. There is no thrush. NECK: Is supple. There is no jugular venous distention, no subcutaneous emphysema. Trachea is midline with the tracheostomy tube in the midline. Tracheostomy tube is widely patent. LUNGS: Show bronchophony in the right lower hemithorax with E-to-A egophony in the right hemithorax. Percussion notes are full to the diaphragm. She has severe kyphosis CARDIAC EXAMINATION: Is without murmurs, clicks, gallops, or rubs. I cannot feel her point of maximal impulse (PMI). S1 and S2 are normal. ABDOMEN: Is soft, nontender. Bowel sounds are positive. There is no hepatomegaly, no costovertebral angle (CVA) tenderness. EXTREMITIES: Show no pretibial edema. No calf tenderness. No differential swelling of the upper extremities. SKIN: Is warm, dry, and perfused without cyanosis or mottling, including that of the nail beds and the knees. NEUROLOGICAL: Shows gross motor and gross sensation intact, along with II-XII intact. PSYCHIATRIC: Shows her to be awake and alert and oriented times three with appropriate mood and affect and conversational. Her chest CT done yesterday in the emergency room shows residual atelectasis in both costophrenic angles with the right greater than the left. There are some air bronchograms on the right side. She has some infiltrative lesions in the left upper lobe. I think these probably represent more atelectasis. Tracheostomy tube is patent and in good position. She has a deviated trachea to the right secondary to the kyphosis. There is a clear space adjacent to the trachea with what looks to be some type of debris. I do not know if this represents part of the oral cavity. I am hoping it does not represent an abscess cavity. I will go over with radiology with what they think it might be. IMPRESSION: 1. Acute bronchitis. 2. Immunosuppression. 3. Multiple myeloma. 4. Patent tracheostomy. PLAN AND DISCUSSION: I would recommend that she be placed on a course of antibiotics. She is severely immunosuppressed. I am not yet prepared to call her a pneumonia, although it may very well be, and those air bronchograms in the right lower lobe may represent a consolidation rather than atelectasis from her kyphosis. I will change her tracheostomy on an elective basis as an outpatient in a month or so.
--- NOTE | 2017-10-08 15:14 | CR ---
DATE OF CONSULTATION: 10/04/2017 CONSULTATION FOR: Dr. Real CHIEF COMPLAINT: Hypoxemia and Zenker's diverticulum. HISTORY OF PRESENT ILLNESS: This 61-year-old woman with a history of multiple myeloma has been admitted to the hospital yesterday due to hypoxemia. On the CT scan of the chest, a 3.9 cm Zenker's diverticulum was noted on the left side of the trachea. The patient denies a history of change in swallowing ability. She denies regurgitation of food particles via the trach or via the oral cavity. The patient wears specialty ordered tracheostomy tube due to significant kyphosis and effects of the multiple myeloma. PAST MEDICAL HISTORY: 1. Multiple myeloma first diagnosed in 2010 with a relapse in 2016. 2. Osteonecrosis of the mandible. 3. Left hip avascular necrosis. 4. Severe immunosuppression. 5. Hypercalcemia. 6. Sydenham chorea. 7. Hypertension. 8. Osteoporosis. 9. T4 kyphosis with restrictive lung disease. 10. Depression. 11. Subglottic stenosis. PAST SURGICAL HISTORY: 1. Tracheostomy. 2. Percutaneous endoscopic gastrostomy. SOCIAL HISTORY: Nonsmoker. Nondrinker. ALLERGIES: AUGMENTIN, LORAZEPAM, XANAX. FAMILY HISTORY: Unremarkable. MEDICATIONS: - Kyprolis - dexamethasone before Kyprolis - Privigen - Zofran - acyclovir - aspirin - Peridex oral rinse - citalopram - Fentanyl patch - Neurontin - guaifenesin - Prevacid - magnesium oxide - metoprolol - Percocet - Pomalyst - REVIEW OF SYSTEMS: The patient denies any visual changes, shortness of breath, rhinorrhea, or sore throat. Chest pain is improving during the admission. Otherwise, unremarkable. PHYSICAL EXAMINATION: On examination, the patient appeared in no acute distress. Temperature of 99. Oxygen saturation greater than 90% of humidified air via the trach collar. EARS: Normal pinna with no active otorrhea from external auditory canal. NOSE: Normal external nasal anatomy. No active rhinorrhea nor bleeding from both nares. Oral cavity with evidence of osteonecrosis of the mandible, chronic in nature. No fungating mass or mucosal ulceration. NECK: Severe anterior displacement secondary to kyphosis. No palpable cervical lymphadenopathy. Trach in situ, patent with no mucosal plugging. IMAGING STUDIES: CT chest angio reviewed with Dr. Real. A 3.9 cm Zenker diverticulum is noted. ASSESSMENT: This 61-year-old woman with a significant history of multiple myeloma with significant kyphosis is noted to have Zenker's diverticulum. PLAN: At this time, the patient is not a candidate for endoscopic resection of the Zenker's diverticulum. She will be a challenging case for excision of the Zenker's diverticulum via an external approach as well. At this time, the patient does not exhibit issue in regard to aspiration secondary to the Zenker's. A careful observation will be a reasonable option at this time. The patient will set up a followup appointment with me in the ENT office in about 2 to 3 weeks post discharge from the hospital. She would benefit from reevaluation of the size of Zenker's diverticulum in about 6 months' time via the CT of the neck that I will arrange when I see the patient in followup in my office.
== END 2017-10-04 13:15 | disposition home or self-care (01) | DRG 202 ==
LOC: M ED 18:01 → M ED INP 22:39 → M PCU 10-03 00:36
PROVIDERS: ADMIT Internal Medicine; ATTEND Hospitalist
DX: J20.9 Acute bronchitis, unspecified (principal); C90.00 Multiple myeloma not having achieved remission; I02.9 Rheumatic chorea without heart involvement; M87.08 Idiopathic aseptic necrosis of bone, other site; R09.02 Hypoxemia; F32.9 Major depressive disorder, single episode, unspecified; M41.9 Scoliosis, unspecified; I10 Essential (primary) hypertension; M81.0 Age-related osteoporosis without current pathological fracture; K22.5 Diverticulum of esophagus, acquired; D63.8 Anemia in other chronic diseases classified elsewhere; J98.4 Other disorders of lung; L98.499 Non-pressure chronic ulcer of skin of other sites with unspecified severity; E83.52 Hypercalcemia; Z86.718 Personal history of other venous thrombosis and embolism; Z93.0 Tracheostomy status; Z88.0 Allergy status to penicillin; Z88.8 Allergy status to other drugs, medicaments and biological substances; R07.2 Precordial pain; Z79.82 Long term (current) use of aspirin; Z79.899 Other long term (current) drug therapy

== ENCOUNTER → 2017-10-21 | Outpatient (REF) | payer OTHER ==
[2017-10-21 14:01] LABS: URINE TOTAL PROTEIN 15.6 MG/DL (0-12)
[2017-10-21 14:39] LABS: IMMUNOGLOBULIN A 58.5 MG/DL (70-400); IMMUNOGLOBULIN G 752 MG/DL (681-1648); TOTAL PROTEIN 6.3 GM/DL (6.4-8.2)
[2017-10-21 15:55] LABS: IMMUNOGLOBULIN M < 5.3 MG/DL (40-230)
[2017-10-23 14:17] LABS: ALBUMIN 3.78 GM/DL (3.29-5.55); ALPHA-1-GLOBULINS 0.44 GM/DL (0.17-0.41); ALPHA-2-GLOBULINS 0.69 GM/DL (0.42-0.99); ALPHA-2-GLOBULINS % 10.9 % (7.1-11.8); BETA-1-GLOBULINS 0.37 GM/DL (0.28-0.60); BETA-1-GLOBULINS % 5.8 % (4.7-7.2); BETA-2-GLOBULINS 0.24 GM/DL (0.19-0.55); BETA-2-GLOBULINS % 3.8 % (3.2-6.5); GAMMA GLOBULIN % 12.5 % (11.1-18.8); GAMMA GLOBULINS 0.79 GM/DL (0.65-1.58)
[2017-10-24 00:06] LABS: FREE KAPPA LIGHT CHAINS SERUM 3.3 mg/L (3.3-19.4); FREE LAMBDA LIGHT CHAINS SERUM 20.3 mg/L (5.7-26.3); KAPPA/LAMBDA RATIO SERUM 0.16 (0.26-1.65)
[2017-10-24 14:06] LABS: UPEP INTERPRETATION 2 M-SPIKES IN GAMMA; URINE VOLUME RANDOM ML
== END ==
LOC: M LAB REF 12:54
DX: C90.00 Multiple myeloma not having achieved remission (principal)

== ENCOUNTER 2017-10-23 09:31 | Outpatient (CLI) | payer OTHER, MEDICARE ==
[2017-10-23] MEDS: diphenhydrAMINE 25 MG CAP PO (09:45)
[2017-10-23] MEDS: ACETAMINOPHEN TAB 650MG DOSE (2X325MG) PO (09:45)
[2017-10-23] MEDS: IMMUNE GLOBULIN 10% 10GM 100ML 10 GM in APPROPRIATE DILUENT 1 EA IV (09:52)
[2017-10-23] MEDS: IMMUNE GLOBULIN 10% 20GM 200ML 20 GM in APPROPRIATE DILUENT 1 EA IV (09:53)
[2017-10-23] MEDS: SODIUM CHLORIDE 0.9% INJ 10 ML SYR IV (13:15)
== END 2017-10-23 13:35 | disposition home or self-care (01) ==
LOC: M INFU 09:31
DX: C90.00 Multiple myeloma not having achieved remission (principal); Z88.8 Allergy status to other drugs, medicaments and biological substances; Z88.0 Allergy status to penicillin; Z88.1 Allergy status to other antibiotic agents; Z79.899 Other long term (current) drug therapy; Z79.82 Long term (current) use of aspirin
CPT/HCPCS: 96365

== ENCOUNTER 2017-11-05 06:08 | Inpatient (IN) | payer OTHER, MEDICARE ==
[2017-11-05 06:56] LABS: BASO % 0.3 % (0.0-1.0); EOS # 0.2 10^3/uL (0.0-0.50); EOS % 2.2 % (0.0-3.0); HEMATOCRIT 30.5 % (36.0-47.0); HEMOGLOBIN 9.7 g/dl (12.0-16.0); IMMATURE GRANULOCYTE # 0.1 10^3/uL (0-0); IMMATURE GRANULOCYTE % 0.8 % (0-0); LYMPH # 0.5 10^3/uL (1.5-4.5); LYMPH % 7.2 % (24.0-44.0); MEAN CORPUSCULAR HEMOGLOBIN 30.2 pg (27.0-33.0); MEAN CORPUSCULAR HGB CONC 31.8 g/dl (32.0-36.5); MONO % 13.2 % (0.0-5.0); NEUTROPHILS # 5.5 10^3/uL (1.8-7.7); NEUTROPHILS % 76.3 % (36.0-66.0); PLATELET COUNT, AUTOMATED 127 10^3/uL (150-450); RED BLOOD COUNT 3.21 10^6/uL (4.00-5.40); RED CELL DISTRIBUTION WIDTH 15.8 % (11.5-14.5); WHITE BLOOD COUNT 7.2 10^3/uL (4.0-10.0)
[2017-11-05 07:02] LABS: LACTIC ACID SEPSIS PROTOCOL 1.6 MMOL/L (0.4-2.0)
[2017-11-05 07:02] LABS: ANION GAP 6 MEQ/L (8-16); BLOOD UREA NITROGEN 18 MG/DL (7-18); CARBON DIOXIDE LEVEL 29 MEQ/L (21-32); CHLORIDE LEVEL 105 MEQ/L (98-107); CPK CREATINE PHOSPHOKINASE 26 U/L (26-192); CREATININE FOR GFR 0.76 MG/DL (0.55-1.02); GLOMERULAR FILTRATION RATE > 60.0 (>51); GLUCOSE, FASTING 88 MG/DL (70-100); SODIUM LEVEL 140 MEQ/L (136-145); TROPONIN I < 0.02 NG/ML (< 0.10); VENOUS BASE EXCESS 0.8 (-2.0-2.0); VENOUS HCO3 26.7 MEQ/L (23.0-27.0); VENOUS O2 SATURATION 60.2 % (60.0-80.0); VENOUS PARTIAL PRESSURE CO2 48.7 mmHg (38.0-50.0); VENOUS PARTIAL PRESSURE O2 32.1 mmHg (30.0-50.0); VENOUS PH 7.357 UNITS (7.330-7.430); VENOUS STANDARD HCO3 24.6 MEQ/L; VENOUS TOTAL CO2 28.2 MEQ/L (24.0-28.0)
[2017-11-05 07:03] LABS: CK-MB VALUE MASS 1.1 NG/ML (0.0-3.6); MB/CK RELATIVE INDEX 4.23 (< OR =4)
[2017-11-05 07:20] LABS: NT-PRO BNP 636 PG/ML (<125)
[2017-11-05] MEDS: NS 1,000 ML IV ×2 (07:40→19:29)
[2017-11-05 07:51] LABS: MAGNESIUM LEVEL 2.6 MG/DL (1.8-2.4); PHOSPHORUS LEVEL 4.1 MG/DL (2.5-4.9)
[2017-11-05 07:58] LABS: ABG BASE EXCESS 0.7 (-2.0-2.0); ABG HCO3 25.9 MEQ/L (22.0-26.0); ABG O2 SATURATION 95.8 % (95.0-99.0); ABG PARTIAL PRESSURE CO2 44.4 mmHg (35.0-45.0); ABG PARTIAL PRESSURE O2 78.8 mmHg (75.0-100.0); ABG STANDARD HCO3 25.1 MEQ/L (22.0-26.0); ABG TOTAL CO2 27.3 MEQ/L (22.0-29.0); ABG pH (ARTERIAL) 7.384 UNITS (7.350-7.450)
[2017-11-05 08:34] LABS: AMMONIA < 10 uMOL/L (<32)
[2017-11-05 09:46] LABS: AMPHETAMINES LEVEL URINE NEGATIVE (NEGATIVE); BARBITURATES URINE NEGATIVE (NEGATIVE); BENZODIAZEPINES URINE NEGATIVE (NEGATIVE); CANNABINOIDS URINE NEGATIVE (NEGATIVE); COCAINE METABOLITE URINE NEGATIVE (NEGATIVE); METHADONE URINE NEGATIVE (NEGATIVE); OPIATES URINE NEGATIVE (NEGATIVE); PHENCYCLIDINE URINE NEGATIVE (NEGATIVE)
[2017-11-05] MEDS ORDERED: ISOVUE-370 76% 100ML VIAL (Q9967) As Ordered (10:59)
[2017-11-05] MEDS ORDERED: PROCHLORPERAZINE 5 MG TAB (S0183) PO (11:00)
[2017-11-05] MEDS: CitaloPRAM (CeleXA) 20 MG TAB PO (13:29)
[2017-11-05] MEDS: ACYCLOVIR 200 MG CAPSULE PO ×2 (13:29→22:32)
[2017-11-05] MEDS: GABAPENTIN 100 MG CAP PO ×2 (13:30→21:44)
[2017-11-05] MEDS: MAGNESIUM OXIDE 400 MG TAB (MAG-OX) PO (13:30)
[2017-11-05] MEDS: guaiFENesin ER 600 MG TAB PO ×2 (13:30→21:44)
[2017-11-05] MEDS: METOPROLOL TART 25 MG TABLET PO ×2 (13:32→21:44)
[2017-11-05] MEDS: CHLORHEXIDINE ORAL RINSE 0.12%/15ML 120ML BOTTLE SSP ×2 (13:32→21:45)
[2017-11-05] MEDS: ENOXAPARIN 30 MG/0.3 ML SYR (J1650) SC (13:32)
[2017-11-05] MEDS: LANSOPRAZOLE SUSPENSION 30 MG/10 ML ORAL SYRINGE (FIRST-LANSOPRAZOLE) PO ×2 (13:33→22:33)
[2017-11-05] MEDS: NALOXONE INJ 0.4 MG/1 ML VIAL (J2310) IV (15:37)
[2017-11-05] MEDS: ASPIRIN 81 MG ENTERIC TAB PO (21:44)
[2017-11-05] MEDS: POMALYST 3 MG PO (21:45)
[2017-11-06] MEDS ORDERED: ACETAMINOPHEN TAB 650MG DOSE (2X325MG) PO (02:45)
[2017-11-06] MEDS: ACETAMINOPHEN TAB 650MG DOSE (2X325MG) PO ×2 (02:56→15:44)
[2017-11-06] MEDS: NS 1,000 ML IV ×2 (04:57→13:45)
[2017-11-06 07:03] LABS: HEMATOCRIT 25.6 % (36.0-47.0); HEMOGLOBIN 8.2 g/dl (12.0-16.0); MEAN CORPUSCULAR HEMOGLOBIN 30.4 pg (27.0-33.0); MEAN CORPUSCULAR VOLUME 94.8 fl (80.0-96.0); RED CELL DISTRIBUTION WIDTH 15.9 % (11.5-14.5); WHITE BLOOD COUNT 3.6 10^3/uL (4.0-10.0)
[2017-11-06 07:08] LABS: PLATELET COUNT, AUTOMATED 86 10^3/uL (150-450)
[2017-11-06 07:09] LABS: IMMATURE PLATELET FRACTION % 3.6 % (0.0-9.6)
[2017-11-06 07:20] LABS: ALBUMIN 2.9 GM/DL (3.2-5.2); ALBUMIN/GLOBULIN RATIO 0.91 (1.00-1.93); ALKALINE PHOSPHATASE 43 U/L (45-117); ALT/SGPT 15 U/L (12-78); ANION GAP 6 MEQ/L (8-16); AST/SGOT 14 U/L (7-37); BILIRUBIN,TOTAL 0.5 MG/DL (0.2-1.0); BLOOD UREA NITROGEN 17 MG/DL (7-18); CALCIUM LEVEL 8.3 MG/DL (8.5-10.1); CARBON DIOXIDE LEVEL 28 MEQ/L (21-32); CHLORIDE LEVEL 109 MEQ/L (98-107); CREATININE FOR GFR 0.78 MG/DL (0.55-1.02); GLOMERULAR FILTRATION RATE > 60.0 (>51); GLUCOSE, FASTING 66 MG/DL (70-100); MAGNESIUM LEVEL 2.1 MG/DL (1.8-2.4); POTASSIUM SERUM 3.8 MEQ/L (3.5-5.1); SODIUM LEVEL 143 MEQ/L (136-145); TOTAL PROTEIN 6.1 GM/DL (6.4-8.2)
[2017-11-06] MEDS ORDERED: FENTANYL REMOVAL DOCUMENTATION MISC XX (09:00)
[2017-11-06] MEDS: ENOXAPARIN 30 MG/0.3 ML SYR (J1650) SC (09:05)
[2017-11-06] MEDS: ACYCLOVIR 200 MG CAPSULE PO ×2 (09:06→21:17)
[2017-11-06] MEDS: LANSOPRAZOLE SUSPENSION 30 MG/10 ML ORAL SYRINGE (FIRST-LANSOPRAZOLE) PO ×2 (09:06→21:17)
[2017-11-06] MEDS: guaiFENesin ER 600 MG TAB PO ×2 (09:06→21:18)
[2017-11-06] MEDS: GABAPENTIN 100 MG CAP PO ×2 (09:06→21:17)
[2017-11-06] MEDS: CitaloPRAM (CeleXA) 20 MG TAB PO (09:07)
[2017-11-06] MEDS: METOPROLOL TART 25 MG TABLET PO ×2 (09:07→21:19)
[2017-11-06] MEDS: MAGNESIUM OXIDE 400 MG TAB (MAG-OX) PO (09:07)
[2017-11-06] MEDS: CHLORHEXIDINE ORAL RINSE 0.12%/15ML 120ML BOTTLE SSP ×2 (09:08→21:00)
[2017-11-06 09:22] LABS: RETIC HEMOGLOBIN EQUIVALENT 33.1 pg (24-36); RETICULOCYTE # 67.1 10^9/L (17-77); RETICULOCYTE % 2.5 % (0.5-1.5)
[2017-11-06] MEDS: fentaNYL 25 MCG/HR PATCH TOP ×2 (13:45→17:27)
[2017-11-06] MEDS: FENTANYL REMOVAL DOCUMENTATION MISC XX (17:27)
[2017-11-06] MEDS: ASPIRIN 81 MG ENTERIC TAB PO (21:19)
[2017-11-06] MEDS: POMALYST 3 MG PO (21:20)
[2017-11-07] MEDS: HALOPERIDOL 0.5 MG TAB PO (02:46)
[2017-11-07 06:47] LABS: HEMATOCRIT 25.6 % (36.0-47.0); HEMOGLOBIN 8.3 g/dl (12.0-16.0); MEAN CORPUSCULAR HEMOGLOBIN 30.1 pg (27.0-33.0); MEAN CORPUSCULAR HGB CONC 32.4 g/dl (32.0-36.5); MEAN CORPUSCULAR VOLUME 92.8 fl (80.0-96.0); PLATELET COUNT, AUTOMATED 112 10^3/uL (150-450); RED BLOOD COUNT 2.76 10^6/uL (4.00-5.40); RED CELL DISTRIBUTION WIDTH 15.3 % (11.5-14.5); WHITE BLOOD COUNT 4.8 10^3/uL (4.0-10.0)
[2017-11-07 07:08] LABS: INR 1.15; PARTIAL THROMBOPLASTIN TIME 34.5 SECONDS (26.8-37.9); PROTHROMBIN TIME 14.9 SECONDS (12.4-14.5)
[2017-11-07 07:17] LABS: ALBUMIN 3.1 GM/DL (3.2-5.2); ALBUMIN/GLOBULIN RATIO 0.97 (1.00-1.93); ALKALINE PHOSPHATASE 42 U/L (45-117); ALT/SGPT 15 U/L (12-78); ANION GAP 8 MEQ/L (8-16); AST/SGOT 19 U/L (7-37); BILIRUBIN,TOTAL 0.7 MG/DL (0.2-1.0); BLOOD UREA NITROGEN 16 MG/DL (7-18); CALCIUM LEVEL 8.4 MG/DL (8.5-10.1); CARBON DIOXIDE LEVEL 23 MEQ/L (21-32); CHLORIDE LEVEL 110 MEQ/L (98-107); CREATININE FOR GFR 0.61 MG/DL (0.55-1.02); GLOMERULAR FILTRATION RATE > 60.0 (>51); GLUCOSE, FASTING 66 MG/DL (70-100); MAGNESIUM LEVEL 1.8 MG/DL (1.8-2.4); POTASSIUM SERUM 3.7 MEQ/L (3.5-5.1); SODIUM LEVEL 141 MEQ/L (136-145); TOTAL PROTEIN 6.3 GM/DL (6.4-8.2)
[2017-11-07] MEDS: MAGNESIUM OXIDE 400 MG TAB (MAG-OX) PO (08:06)
[2017-11-07] MEDS: LANSOPRAZOLE SUSPENSION 30 MG/10 ML ORAL SYRINGE (FIRST-LANSOPRAZOLE) PO ×2 (08:06→20:13)
[2017-11-07] MEDS: CitaloPRAM (CeleXA) 20 MG TAB PO (08:06)
[2017-11-07] MEDS: guaiFENesin ER 600 MG TAB PO ×2 (08:06→20:13)
[2017-11-07] MEDS: METOPROLOL TART 25 MG TABLET PO ×2 (08:06→20:13)
[2017-11-07] MEDS: ENOXAPARIN 30 MG/0.3 ML SYR (J1650) SC (08:06)
[2017-11-07] MEDS: GABAPENTIN 100 MG CAP PO (08:06)
[2017-11-07] MEDS: CHLORHEXIDINE ORAL RINSE 0.12%/15ML 120ML BOTTLE SSP ×2 (08:07→21:26)
[2017-11-07] MEDS: ACYCLOVIR 200 MG CAPSULE PO ×2 (08:07→21:24)
[2017-11-07] MEDS: ACETAMINOPHEN TAB 650MG DOSE (2X325MG) PO ×3 (08:07→22:34)
[2017-11-07 08:45] LABS: REASON FOR REVIEW COMPREHENSIVE REVIEW; SLIDE REVIEW Report; SOURCE PERIPHERAL SMEAR
[2017-11-07] MEDS: GABAPENTIN 300 MG CAP PO (13:15)
[2017-11-07] MEDS: ASPIRIN 81 MG ENTERIC TAB PO (20:13)
[2017-11-07] MEDS: GABAPENTIN 400 MG CAP PO (20:13)
[2017-11-07] MEDS: MEROPENEM INJ 1 GM in APPROPRIATE DILUENT 1 EA IV (20:16)
[2017-11-07] MEDS: HALOPERIDOL 1 MG TAB PO (22:34)
[2017-11-08] MEDS: IPRATROPIUM 0.5MG/ALBUTEROL 2.5MG INH SOL UD 3ML (DUONEB)(J7620) NEB ×3 (04:15→19:58)
[2017-11-08 08:27] LABS: HEMATOCRIT 26.5 % (36.0-47.0); HEMOGLOBIN 8.7 g/dl (12.0-16.0); MEAN CORPUSCULAR HEMOGLOBIN 30.1 pg (27.0-33.0); MEAN CORPUSCULAR HGB CONC 32.8 g/dl (32.0-36.5); MEAN CORPUSCULAR VOLUME 91.7 fl (80.0-96.0); PLATELET COUNT, AUTOMATED 129 10^3/uL (150-450); RED BLOOD COUNT 2.89 10^6/uL (4.00-5.40); RED CELL DISTRIBUTION WIDTH 15.6 % (11.5-14.5); WHITE BLOOD COUNT 4.2 10^3/uL (4.0-10.0)
[2017-11-08] MEDS: CitaloPRAM (CeleXA) 20 MG TAB PO (08:35)
[2017-11-08] MEDS: guaiFENesin ER 600 MG TAB PO ×2 (08:35→20:02)
[2017-11-08] MEDS: SENOKOT S TAB PO (08:35)
[2017-11-08] MEDS: METOPROLOL TART 25 MG TABLET PO ×2 (08:35→20:02)
[2017-11-08] MEDS: MOM 30ML SUSPENSION UDC PO ×2 (08:35→08:37)
[2017-11-08] MEDS: MAGNESIUM OXIDE 400 MG TAB (MAG-OX) PO (08:36)
[2017-11-08] MEDS: GABAPENTIN 400 MG CAP PO ×2 (08:36→20:00)
[2017-11-08] MEDS: MEROPENEM INJ 1 GM in APPROPRIATE DILUENT 1 EA IV ×2 (08:37→16:40)
[2017-11-08 08:49] LABS: ALBUMIN/GLOBULIN RATIO 1.03 (1.00-1.93); ALKALINE PHOSPHATASE 44 U/L (45-117); ALT/SGPT 22 U/L (12-78); ANION GAP 6 MEQ/L (8-16); AST/SGOT 26 U/L (7-37); BILIRUBIN,TOTAL 0.6 MG/DL (0.2-1.0); BLOOD UREA NITROGEN 15 MG/DL (7-18); C REACTIVE PROTEIN QUANTITATIV 0.78 MG/DL (0.00-0.30); CALCIUM LEVEL 8.3 MG/DL (8.5-10.1); CARBON DIOXIDE LEVEL 27 MEQ/L (21-32); CHLORIDE LEVEL 111 MEQ/L (98-107); CREATININE FOR GFR 0.73 MG/DL (0.55-1.02); GLOMERULAR FILTRATION RATE > 60.0 (>51); GLUCOSE, FASTING 121 MG/DL (70-100); MAGNESIUM LEVEL 2.1 MG/DL (1.8-2.4); POTASSIUM SERUM 3.7 MEQ/L (3.5-5.1); SODIUM LEVEL 144 MEQ/L (136-145); TOTAL PROTEIN 5.9 GM/DL (6.4-8.2)
[2017-11-08] MEDS: CHLORHEXIDINE ORAL RINSE 0.12%/15ML 120ML BOTTLE SSP ×2 (09:00→20:03)
[2017-11-08] MEDS: LANSOPRAZOLE SUSPENSION 30 MG/10 ML ORAL SYRINGE (FIRST-LANSOPRAZOLE) PO ×2 (10:02→20:01)
[2017-11-08] MEDS: ACYCLOVIR 200 MG CAPSULE PO ×2 (10:02→20:01)
[2017-11-08] MEDS: HALOPERIDOL 1 MG TAB PO (11:29)
[2017-11-08 13:58] LABS: CSF RBC < 2 10^3/uL (<2)
[2017-11-08 13:59] LABS: APPEARANCE, CSF CLEAR (CLEAR); COLOR, CSF COLORLESS (COLORLESS); CSF DIFF IF INDICATED? NO (NO); CSF RBC < 2 10^3/uL (<2); CSF TUBE# CELL CNT TUBE 1; CSF WBC 2 /uL (0-10)
[2017-11-08 14:00] LABS: APPEARANCE, CSF CLEAR (CLEAR); COLOR, CSF COLORLESS (COLORLESS); CSF DIFF IF INDICATED? NO (NO); CSF TUBE# CELL CNT TUBE 4; CSF WBC 2 /uL (0-10)
[2017-11-08 14:10] LABS: CSF TUBE# GLU TUBE 2; CSF TUBE# TP TUBE 2; GLUCOSE CSF 49 MG/DL (40-75); TOTAL PROTEIN,CSF 34.7 MG/DL (15-45)
[2017-11-08 14:35] LABS: ABG HCO3 21.3 MEQ/L (22.0-26.0); ABG O2 SATURATION 92.9 % (95.0-99.0); ABG PARTIAL PRESSURE CO2 39.7 mmHg (35.0-45.0); ABG PARTIAL PRESSURE O2 70.8 mmHg (75.0-100.0); ABG TOTAL CO2 22.5 MEQ/L (22.0-29.0); ABG pH (ARTERIAL) 7.347 UNITS (7.350-7.450)
[2017-11-08] MEDS: ASPIRIN 81 MG ENTERIC TAB PO (20:00)
[2017-11-08] MEDS: ACETAMINOPHEN TAB 650MG DOSE (2X325MG) PO (20:01)
[2017-11-08] MEDS: MORPHINE 2 MG/ML 1ML SYRINGE IV (21:51)
[2017-11-09] MEDS: MEROPENEM INJ 1 GM in APPROPRIATE DILUENT 1 EA IV ×3 (00:15→16:58)
[2017-11-09] MEDS: IPRATROPIUM 0.5MG/ALBUTEROL 2.5MG INH SOL UD 3ML (DUONEB)(J7620) NEB (03:58)
[2017-11-09] MEDS: MORPHINE 2 MG/ML 1ML SYRINGE IV ×2 (04:09→23:48)
[2017-11-09 06:10] LABS: HEMATOCRIT 26.3 % (36.0-47.0); HEMOGLOBIN 8.7 g/dl (12.0-16.0); MEAN CORPUSCULAR HEMOGLOBIN 30.2 pg (27.0-33.0); MEAN CORPUSCULAR HGB CONC 33.1 g/dl (32.0-36.5); MEAN CORPUSCULAR VOLUME 91.3 fl (80.0-96.0); PLATELET COUNT, AUTOMATED 135 10^3/uL (150-450); RED BLOOD COUNT 2.88 10^6/uL (4.00-5.40); RED CELL DISTRIBUTION WIDTH 16.1 % (11.5-14.5); WHITE BLOOD COUNT 4.6 10^3/uL (4.0-10.0)
[2017-11-09 06:31] LABS: ALBUMIN 2.7 GM/DL (3.2-5.2); ALBUMIN/GLOBULIN RATIO 1.17 (1.00-1.93); ALKALINE PHOSPHATASE 40 U/L (45-117); ALT/SGPT 19 U/L (12-78); ANION GAP 9 MEQ/L (8-16); AST/SGOT 23 U/L (7-37); BILIRUBIN,TOTAL 0.7 MG/DL (0.2-1.0); BLOOD UREA NITROGEN 13 MG/DL (7-18); CALCIUM LEVEL 7.5 MG/DL (8.5-10.1); CARBON DIOXIDE LEVEL 26 MEQ/L (21-32); CHLORIDE LEVEL 111 MEQ/L (98-107); CREATININE FOR GFR 0.58 MG/DL (0.55-1.02); GLOMERULAR FILTRATION RATE > 60.0 (>51); GLUCOSE, FASTING 85 MG/DL (70-100); MAGNESIUM LEVEL 2.4 MG/DL (1.8-2.4); POTASSIUM SERUM 3.5 MEQ/L (3.5-5.1); SODIUM LEVEL 146 MEQ/L (136-145)
[2017-11-09] MEDS: CitaloPRAM (CeleXA) 20 MG TAB PO (08:23)
[2017-11-09] MEDS: guaiFENesin ER 600 MG TAB PO ×2 (08:23→20:27)
[2017-11-09] MEDS: ACYCLOVIR 200 MG CAPSULE PO ×2 (08:23→20:27)
[2017-11-09] MEDS: ACETAMINOPHEN TAB 650MG DOSE (2X325MG) PO ×3 (08:24→22:06)
[2017-11-09] MEDS: GABAPENTIN 400 MG CAP PO ×2 (08:24→20:27)
[2017-11-09] MEDS: MAGNESIUM OXIDE 400 MG TAB (MAG-OX) PO (08:24)
[2017-11-09] MEDS: METOPROLOL TART 25 MG TABLET PO ×2 (08:25→20:27)
[2017-11-09] MEDS: LANSOPRAZOLE SUSPENSION 30 MG/10 ML ORAL SYRINGE (FIRST-LANSOPRAZOLE) PO ×2 (08:25→20:27)
[2017-11-09] MEDS: SODIUM CHLORIDE 0.9% INJ 10 ML SYR IV ×2 (08:26→23:48)
[2017-11-09] MEDS: CHLORHEXIDINE ORAL RINSE 0.12%/15ML 120ML BOTTLE SSP ×2 (08:26→20:28)
[2017-11-09] MEDS: ENOXAPARIN 40 MG/0.4 ML SYRINGE (J1650) SC (09:00)
[2017-11-09] MEDS ORDERED: PERCOCET 5MG/325MG TAB PO (13:15)
[2017-11-09] MEDS ORDERED: FENTANYL REMOVAL DOCUMENTATION MISC XX (18:00)
[2017-11-09] MEDS: ASPIRIN 81 MG ENTERIC TAB PO (20:27)
[2017-11-10] MEDS: MEROPENEM INJ 1 GM in APPROPRIATE DILUENT 1 EA IV ×3 (00:44→16:47)
[2017-11-10] MEDS: SODIUM CHLORIDE 0.9% INJ 10 ML SYR IV ×3 (01:27→08:03)
[2017-11-10 06:13] LABS: HEMATOCRIT 25.1 % (36.0-47.0); HEMOGLOBIN 8.2 g/dl (12.0-16.0); MEAN CORPUSCULAR HEMOGLOBIN 30.5 pg (27.0-33.0); MEAN CORPUSCULAR HGB CONC 32.7 g/dl (32.0-36.5); MEAN CORPUSCULAR VOLUME 93.3 fl (80.0-96.0); PLATELET COUNT, AUTOMATED 116 10^3/uL (150-450); RED BLOOD COUNT 2.69 10^6/uL (4.00-5.40); RED CELL DISTRIBUTION WIDTH 16.5 % (11.5-14.5); WHITE BLOOD COUNT 3.6 10^3/uL (4.0-10.0)
[2017-11-10 07:15] LABS: ALBUMIN 2.6 GM/DL (3.2-5.2); ALBUMIN/GLOBULIN RATIO 1.18 (1.00-1.93); ALKALINE PHOSPHATASE 37 U/L (45-117); ALT/SGPT 15 U/L (12-78); ANION GAP 7 MEQ/L (8-16); AST/SGOT 18 U/L (7-37); BILIRUBIN,TOTAL 0.6 MG/DL (0.2-1.0); BLOOD UREA NITROGEN 14 MG/DL (7-18); CALCIUM LEVEL 7.3 MG/DL (8.5-10.1); CARBON DIOXIDE LEVEL 28 MEQ/L (21-32); CHLORIDE LEVEL 111 MEQ/L (98-107); CREATININE FOR GFR 0.62 MG/DL (0.55-1.02); GLOMERULAR FILTRATION RATE > 60.0 (>51); GLUCOSE, FASTING 77 MG/DL (70-100); MAGNESIUM LEVEL 2.3 MG/DL (1.8-2.4); POTASSIUM SERUM 3.5 MEQ/L (3.5-5.1); SODIUM LEVEL 146 MEQ/L (136-145); TOTAL PROTEIN 4.8 GM/DL (6.4-8.2)
[2017-11-10] MEDS: LANSOPRAZOLE SUSPENSION 30 MG/10 ML ORAL SYRINGE (FIRST-LANSOPRAZOLE) PO ×3 (08:02→21:49)
[2017-11-10] MEDS: ENOXAPARIN 40 MG/0.4 ML SYRINGE (J1650) SC (08:02)
[2017-11-10] MEDS: CHLORHEXIDINE ORAL RINSE 0.12%/15ML 120ML BOTTLE SSP ×2 (08:02→21:50)
[2017-11-10] MEDS: MAGNESIUM OXIDE 400 MG TAB (MAG-OX) PO (08:03)
[2017-11-10] MEDS: CitaloPRAM (CeleXA) 20 MG TAB PO (08:03)
[2017-11-10] MEDS: ACYCLOVIR 200 MG CAPSULE PO ×2 (08:03→21:48)
[2017-11-10] MEDS: guaiFENesin ER 600 MG TAB PO ×2 (08:04→21:49)
[2017-11-10] MEDS: GABAPENTIN 400 MG CAP PO ×2 (08:04→21:49)
[2017-11-10] MEDS: METOPROLOL TART 25 MG TABLET PO ×2 (08:04→21:49)
[2017-11-10] MEDS: ACETAMINOPHEN TAB 650MG DOSE (2X325MG) PO (16:47)
[2017-11-10] MEDS: ASPIRIN 81 MG ENTERIC TAB PO (21:49)
[2017-11-10] MEDS: ONDANSETRON 4MG/2ML VIAL (J2405) IV (22:22)
[2017-11-11] MEDS: MEROPENEM INJ 1 GM in APPROPRIATE DILUENT 1 EA IV ×3 (00:56→17:18)
[2017-11-11] MEDS: ACETAMINOPHEN TAB 650MG DOSE (2X325MG) PO (00:57)
[2017-11-11] MEDS: SODIUM CHLORIDE 0.9% INJ 10 ML SYR IV ×4 (01:40→17:18)
[2017-11-11 06:27] LABS: HEMATOCRIT 26.1 % (36.0-47.0); HEMOGLOBIN 8.2 g/dl (12.0-16.0); MEAN CORPUSCULAR HEMOGLOBIN 29.6 pg (27.0-33.0); MEAN CORPUSCULAR HGB CONC 31.4 g/dl (32.0-36.5); MEAN CORPUSCULAR VOLUME 94.2 fl (80.0-96.0); PLATELET COUNT, AUTOMATED 134 10^3/uL (150-450); RED BLOOD COUNT 2.77 10^6/uL (4.00-5.40); RED CELL DISTRIBUTION WIDTH 16.3 % (11.5-14.5); WHITE BLOOD COUNT 3.5 10^3/uL (4.0-10.0)
[2017-11-11 06:57] LABS: ALBUMIN 2.9 GM/DL (3.2-5.2); ALBUMIN/GLOBULIN RATIO 1.12 (1.00-1.93); ALKALINE PHOSPHATASE 39 U/L (45-117); ALT/SGPT 18 U/L (12-78); ANION GAP 8 MEQ/L (8-16); AST/SGOT 19 U/L (7-37); BILIRUBIN,TOTAL 0.5 MG/DL (0.2-1.0); BLOOD UREA NITROGEN 11 MG/DL (7-18); CALCIUM LEVEL 7.5 MG/DL (8.5-10.1); CARBON DIOXIDE LEVEL 26 MEQ/L (21-32); CHLORIDE LEVEL 112 MEQ/L (98-107); CREATININE FOR GFR 0.55 MG/DL (0.55-1.02); GLOMERULAR FILTRATION RATE > 60.0 (>51); GLUCOSE, FASTING 80 MG/DL (70-100); MAGNESIUM LEVEL 2.2 MG/DL (1.8-2.4); POTASSIUM SERUM 3.6 MEQ/L (3.5-5.1); SODIUM LEVEL 146 MEQ/L (136-145); TOTAL PROTEIN 5.5 GM/DL (6.4-8.2)
[2017-11-11] MEDS: CHLORHEXIDINE ORAL RINSE 0.12%/15ML 120ML BOTTLE SSP ×2 (09:00→21:25)
[2017-11-11] MEDS: GABAPENTIN 400 MG CAP PO ×2 (10:38→21:23)
[2017-11-11] MEDS: METOPROLOL TART 25 MG TABLET PO ×2 (10:38→21:24)
[2017-11-11] MEDS: MAGNESIUM OXIDE 400 MG TAB (MAG-OX) PO (10:38)
[2017-11-11] MEDS: ACYCLOVIR 200 MG CAPSULE PO ×2 (10:39→21:24)
[2017-11-11] MEDS: CitaloPRAM (CeleXA) 20 MG TAB PO (10:40)
[2017-11-11] MEDS: guaiFENesin ER 600 MG TAB PO ×2 (10:40→21:23)
[2017-11-11] MEDS: LANSOPRAZOLE SUSPENSION 30 MG/10 ML ORAL SYRINGE (FIRST-LANSOPRAZOLE) PO ×2 (10:42→21:23)
[2017-11-11] MEDS: PERCOCET 5MG/325MG TAB PO (10:42)
[2017-11-11] MEDS: ENOXAPARIN 40 MG/0.4 ML SYRINGE (J1650) SC (10:51)
[2017-11-11] MEDS: ASPIRIN 81 MG ENTERIC TAB PO (21:23)
[2017-11-12] MEDS: MEROPENEM INJ 1 GM in APPROPRIATE DILUENT 1 EA IV ×3 (00:15→17:37)
[2017-11-12 06:21] LABS: HEMATOCRIT 27.3 % (36.0-47.0); HEMOGLOBIN 8.6 g/dl (12.0-16.0); MEAN CORPUSCULAR HEMOGLOBIN 30.1 pg (27.0-33.0); MEAN CORPUSCULAR HGB CONC 31.5 g/dl (32.0-36.5); MEAN CORPUSCULAR VOLUME 95.5 fl (80.0-96.0); PLATELET COUNT, AUTOMATED 165 10^3/uL (150-450); RED BLOOD COUNT 2.86 10^6/uL (4.00-5.40); RED CELL DISTRIBUTION WIDTH 16.5 % (11.5-14.5); WHITE BLOOD COUNT 4.1 10^3/uL (4.0-10.0)
[2017-11-12 06:38] LABS: ALBUMIN 2.8 GM/DL (3.2-5.2); ALBUMIN/GLOBULIN RATIO 1.08 (1.00-1.93); ALKALINE PHOSPHATASE 43 U/L (45-117); ALT/SGPT 16 U/L (12-78); ANION GAP 6 MEQ/L (8-16); AST/SGOT 16 U/L (7-37); BILIRUBIN,TOTAL 0.5 MG/DL (0.2-1.0); BLOOD UREA NITROGEN 11 MG/DL (7-18); CALCIUM LEVEL 7.9 MG/DL (8.5-10.1); CARBON DIOXIDE LEVEL 27 MEQ/L (21-32); CHLORIDE LEVEL 112 MEQ/L (98-107); CREATININE FOR GFR 0.55 MG/DL (0.55-1.30); GLOMERULAR FILTRATION RATE > 60.0 (>51); GLUCOSE, FASTING 85 MG/DL (70-100); MAGNESIUM LEVEL 2.3 MG/DL (1.8-2.4); POTASSIUM SERUM 4.1 MEQ/L (3.5-5.1); SODIUM LEVEL 145 MEQ/L (136-145); TOTAL PROTEIN 5.4 GM/DL (6.4-8.2)
[2017-11-12] MEDS: LANSOPRAZOLE SUSPENSION 30 MG/10 ML ORAL SYRINGE (FIRST-LANSOPRAZOLE) PO ×2 (09:29→20:36)
[2017-11-12] MEDS: ENOXAPARIN 40 MG/0.4 ML SYRINGE (J1650) SC (09:29)
[2017-11-12] MEDS: GABAPENTIN 400 MG CAP PO ×2 (09:30→20:38)
[2017-11-12] MEDS: MAGNESIUM OXIDE 400 MG TAB (MAG-OX) PO (09:30)
[2017-11-12] MEDS: ACYCLOVIR 200 MG CAPSULE PO ×2 (09:30→20:38)
[2017-11-12] MEDS: CitaloPRAM (CeleXA) 20 MG TAB PO (09:30)
[2017-11-12] MEDS: METOPROLOL TART 25 MG TABLET PO ×2 (09:30→20:38)
[2017-11-12] MEDS: guaiFENesin ER 600 MG TAB PO ×2 (09:30→20:38)
[2017-11-12] MEDS: SODIUM CHLORIDE 0.9% INJ 10 ML SYR IV ×2 (09:31→18:34)
[2017-11-12] MEDS: IPRATROPIUM 0.5MG/ALBUTEROL 2.5MG INH SOL UD 3ML (DUONEB)(J7620) NEB (10:00)
[2017-11-12] MEDS: ACETAMINOPHEN TAB 650MG DOSE (2X325MG) PO (11:50)
[2017-11-12] MEDS: CHLORHEXIDINE ORAL RINSE 0.12%/15ML 120ML BOTTLE SSP ×2 (11:50→20:39)
[2017-11-12] MEDS: PERCOCET 5MG/325MG TAB PO ×2 (14:17→20:37)
[2017-11-12] MEDS: ASPIRIN 81 MG ENTERIC TAB PO (20:38)
[2017-11-12] MEDS: DOXYCYCLINE HYCLATE 100 MG TAB PO (21:40)
[2017-11-13] MEDS: ONDANSETRON 4MG/2ML VIAL (J2405) IV ×2 (01:55→08:49)
[2017-11-13] MEDS: PERCOCET 5MG/325MG TAB PO (04:31)
[2017-11-13] MEDS: LANSOPRAZOLE SUSPENSION 30 MG/10 ML ORAL SYRINGE (FIRST-LANSOPRAZOLE) PO (08:49)
[2017-11-13] MEDS: CitaloPRAM (CeleXA) 20 MG TAB PO (08:49)
[2017-11-13] MEDS: guaiFENesin ER 600 MG TAB PO (08:49)
[2017-11-13] MEDS: ACYCLOVIR 200 MG CAPSULE PO (08:50)
[2017-11-13] MEDS: GABAPENTIN 400 MG CAP PO (08:50)
[2017-11-13] MEDS: MAGNESIUM OXIDE 400 MG TAB (MAG-OX) PO (08:50)
[2017-11-13] MEDS: DOXYCYCLINE HYCLATE 100 MG TAB PO (08:50)
[2017-11-13] MEDS: SODIUM CHLORIDE 0.9% INJ 10 ML SYR IV (08:51)
[2017-11-13] MEDS: METOPROLOL TART 25 MG TABLET PO (09:00)
[2017-11-13 14:27] LABS: FLOW CYTOMETRY FOR SEND OUT See Pathology Report
== END 2017-11-13 11:10 | disposition home or self-care (01) | DRG 70 ==
LOC: M ED 06:08 → M ED INP 10:50 → M PCU 15:59
PROC: 009U3ZX Drainage of Spinal Canal, Percutaneous Approach, Diagnostic (ICD-10-PCS; principal; 2017-11-08)
DX: G93.41 Metabolic encephalopathy (principal); D61.810 Antineoplastic chemotherapy induced pancytopenia; C90.00 Multiple myeloma not having achieved remission; M87.052 Idiopathic aseptic necrosis of left femur; M87.08 Idiopathic aseptic necrosis of bone, other site; L03.211 Cellulitis of face; E83.52 Hypercalcemia; I10 Essential (primary) hypertension; M81.0 Age-related osteoporosis without current pathological fracture; M40.209 Unspecified kyphosis, site unspecified; K21.9 Gastro-esophageal reflux disease without esophagitis; K59.00 Constipation, unspecified; J98.4 Other disorders of lung; F32.9 Major depressive disorder, single episode, unspecified; Z88.0 Allergy status to penicillin; Z88.8 Allergy status to other drugs, medicaments and biological substances; Z79.82 Long term (current) use of aspirin; Z79.899 Other long term (current) drug therapy; Z86.718 Personal history of other venous thrombosis and embolism; Z93.0 Tracheostomy status

== ENCOUNTER → 2017-11-18 | Outpatient (REF) | payer OTHER, MEDICARE | LOC: M LAB REF 11:55 | DX: C90.00 Multiple myeloma not having achieved remission (principal) ==

== ENCOUNTER → 2017-11-19 | Outpatient (CLI) | payer OTHER, MEDICARE | LOC: M RAD 08:07 | DX: M79.662 Pain in left lower leg (principal); R60.0 Localized edema | CPT/HCPCS: 93971 ==

== ENCOUNTER → 2017-11-20 | Outpatient (REF) | payer OTHER, MEDICARE ==
[2017-11-20 13:15] LABS: CORTISOL BASELINE 10.6 UG/DL (4.3-22.4)
[2017-11-22 14:11] LABS: ADRENOCORTICOTROPHIC HORMONE 24.2 pg/mL (7.2-63.3)
== END ==
LOC: M LAB REF 12:36
DX: C90.00 Multiple myeloma not having achieved remission (principal)

== ENCOUNTER 2017-11-21 09:53 | Outpatient (CLI) | payer OTHER, MEDICARE ==
[2017-11-21] MEDS: diphenhydrAMINE 25 MG CAP PO ×2 (10:00)
[2017-11-21] MEDS: ACETAMINOPHEN TAB 650MG DOSE (2X325MG) PO ×2 (10:00)
[2017-11-21] MEDS: IMMUNE GLOBULIN 10% 20GM 200ML 20 GM in APPROPRIATE DILUENT 1 EA IV (10:08)
[2017-11-21] MEDS: IMMUNE GLOBULIN 10% 10GM 100ML 10 GM in APPROPRIATE DILUENT 1 EA IV (10:13)
[2017-11-21] MEDS: SODIUM CHLORIDE 0.9% INJ 10 ML SYR IV ×2 (13:31)
== END 2017-11-21 14:00 | disposition home or self-care (01) ==
LOC: M INFU 09:53
DX: C90.00 Multiple myeloma not having achieved remission (principal); Z79.82 Long term (current) use of aspirin; Z79.891 Long term (current) use of opiate analgesic; Z79.899 Other long term (current) drug therapy; Z88.0 Allergy status to penicillin; Z88.8 Allergy status to other drugs, medicaments and biological substances
CPT/HCPCS: J1569

== ENCOUNTER → 2017-11-22 | Outpatient (CLI) | payer OTHER, MEDICARE | LOC: M PLARAD 11:24 | DX: M89.9 Disorder of bone, unspecified (principal); C90.00 Multiple myeloma not having achieved remission; G93.40 Encephalopathy, unspecified | CPT/HCPCS: 70553 ==

== ENCOUNTER → 2017-11-25 | Outpatient (REF) | payer OTHER, MEDICARE ==
[2017-11-25 14:26] LABS: URINE TOTAL PROTEIN 85.4 MG/DL (0-12)
[2017-11-25 14:28] LABS: ERYTHROCYTE SEDIMENTATION RATE 22 mm/hr (0-30)
[2017-11-25 15:16] LABS: IMMUNOGLOBULIN A 32.6 MG/DL (70-400); IMMUNOGLOBULIN G 1360 MG/DL (681-1648); TOTAL PROTEIN 7.1 GM/DL (6.4-8.2)
[2017-11-25 16:54] LABS: IMMUNOGLOBULIN M 6.46 MG/DL (40-230)
[2017-11-26 11:29] LABS: ALBUMIN 4.12 GM/DL (3.29-5.55); ALPHA-1-GLOBULIN % 4.7 % (2.9-4.9); ALPHA-1-GLOBULINS 0.33 GM/DL (0.17-0.41); ALPHA-2-GLOBULINS 0.64 GM/DL (0.42-0.99); BETA-1-GLOBULINS 0.38 GM/DL (0.28-0.60); BETA-1-GLOBULINS % 5.4 % (4.7-7.2); BETA-2-GLOBULINS % 3.5 % (3.2-6.5); GAMMA GLOBULIN % 19.4 % (11.1-18.8)
[2017-11-26 11:30] LABS: BETA-2-GLOBULINS 0.25 GM/DL (0.19-0.55); GAMMA GLOBULINS 1.38 GM/DL (0.65-1.58)
[2017-11-27 08:18] LABS: FREE LAMBDA LIGHT CHAINS SERUM 60.2 mg/L (5.7-26.3); KAPPA/LAMBDA RATIO SERUM 0.05 (0.26-1.65)
[2017-11-27 08:18] LABS: BETA 2 MICROGLOBULIN 1.7 mg/L (0.6-2.4)
[2017-11-27 13:57] LABS: UPEP INTERPRETATION 2 M-SPIKES IN GAMMA; URINE VOLUME R ML
== END ==
LOC: M LAB REF 10:47
DX: C90.00 Multiple myeloma not having achieved remission (principal)

== ENCOUNTER → 2017-11-29 | Day surgery (SDC) | payer OTHER, MEDICARE ==
[~2017-11-29] MED LIST changes: -/AUGM875TA OR; -/FENT50PA TD; -/HALO1T OR; -/QUET25TA PO; -ACET65TA OR; -ACYC400T PO; -ARTISOL10 OU; -ASPI1TAB PO; -ATIV1TAB2 OR; -ATRO0.06; -ATRO0.06 INH; -BENA25TA4 PO; -BISA10SU2 RE; -BUDE0.5S6 INH; -CARD180T PO; -CARD60TA OR; -CEFD300CAP PO; -CELE40TA OR; -CELE40TA PO; -CHEMOTHERAPY; -CHLO0.124 SSP; -CHLO25TA3 PO; -CITA40TA4 PO; -CLIN300C PO; -CODE15TA OR; -CODE15TA PO; -COLA100C2 OR; -COLA100C2 PO; -COLA100C5 PO; -DECADRON PO; -DEXA2TA PO; -DEXA4TA PO; -DOCU10ELUD PO; -DOXY100T OR; -DOXY100T PO; -DURA100D2 TD; -FAMCICLOVIR OR; -FENT100D25 TD; -GABA-279 PO; -GABA100C PO; -GAMMA GLOBULIN IV; -GUAI1TAB PO; -KEFL500C PO; -LANS30CA PO; -LEVA12INH INH; -LEVA1TAB2 PO; +LIDOCAINE 1% MDV 20ML VIAL As Ordered; +LIDOCAINE VISCOUS 2% SOLN 15ML UDC As Ordered; +LIDOCAINE W/EPINEPHRINE 1% 20ML VIAL As Ordered; -LOPR50TA OR; -MAGN400T5 PO; -MAGN500T2 OR; -MAGN500T2 PO; -MEGA40SU OR; -MEGA40SU PO; -METO25TA4 PO; -METO50TA7 PO; -MILKSUS OR; -MIRALEX OR; -MIRALEX PO; -MUCI600T34 PO; -MUCU400T2 OR; -MUCU400T2 PO; -Magnesium Oxide PO; -ONDA4TAB5 PO; -PAIN325T PO; -PERC10TA26 PO; -PERC5TAB8 OR; -PERC7.5T12 PO; -PERC7.5T8 OR; -PERCOCET PO; -PERI0.126 SSP; -POMA2CAP PO; -PREV15CA OR; -PREV30CA6 PO; -PREVACID PO; -PROC10TA PO; -PROC5TA PO; -PULM0.5S IN; -PULMOZYME INH; -REVL10CA2 PO; -REVL20CA PO; -SENN8.6T5 OR; -SERO1TAB3 PO; -SILVADENE; -TESS100C OR; -TESS100C PO; -VALCADE IV; -VICO5TAB OR; -XANA0.25 OR; -XOPE1.252 IN; -ZOFR8TAB PO; -ZOMETA IV; -[UNRECOGNIZED DRUG - CODE] IV; -[UNRECOGNIZED DRUG - CODE] IV; -[UNRECOGNIZED DRUG - OTHER]; -[UNRECOGNIZED DRUG - OTHER]; -[UNRECOGNIZED DRUG - OTHER] IV; -chlorthalidone PO
== END | disposition home or self-care (01) ==
LOC: M OPP 10:51
DX: Z53.9 Procedure and treatment not carried out, unspecified reason (principal)

== ENCOUNTER → 2017-12-02 | Outpatient (REF) | payer OTHER, MEDICARE ==
[2017-12-02 11:10] LABS: INR 1.02; PROTHROMBIN TIME 13.5 SECONDS (12.4-14.5)
[2017-12-02 11:11] LABS: PARTIAL THROMBOPLASTIN TIME 67.4 SECONDS (26.8-37.9)
== END ==
LOC: M LAB REF 10:23
DX: C90.00 Multiple myeloma not having achieved remission (principal)

== ENCOUNTER → 2017-12-05 | Outpatient (CLI) | payer OTHER, MEDICARE | LOC: M RADPRO 16:04 | DX: C90.00 Multiple myeloma not having achieved remission (principal); M25.562 Pain in left knee; Z88.3 Allergy status to other anti-infective agents; Z88.0 Allergy status to penicillin; Z88.8 Allergy status to other drugs, medicaments and biological substances; Z79.82 Long term (current) use of aspirin; Z79.899 Other long term (current) drug therapy | CPT/HCPCS: 62270 ==

== ENCOUNTER → 2017-12-09 | Outpatient (REF) | payer OTHER, MEDICARE ==
[2017-12-09 14:10] LABS: INR 1.07; PROTHROMBIN TIME 14.1 SECONDS (12.4-14.5)
[2017-12-09 14:11] LABS: PARTIAL THROMBOPLASTIN TIME 29.1 SECONDS (26.8-37.9)
== END ==
LOC: M LAB REF 13:53
DX: C90.00 Multiple myeloma not having achieved remission (principal)

== ENCOUNTER → 2017-12-13 | Outpatient (CLI) | payer OTHER, MEDICARE | LOC: M PLARAD 08:58 | DX: C90.00 Multiple myeloma not having achieved remission (principal); M79.662 Pain in left lower leg; M25.552 Pain in left hip | CPT/HCPCS: 73720 ==

== ENCOUNTER → 2017-12-16 | Outpatient (CLI) | payer OTHER, MEDICARE | LOC: M PLARAD 14:29 | DX: C90.00 Multiple myeloma not having achieved remission (principal) | CPT/HCPCS: 73720 ==

== ENCOUNTER 2017-12-19 11:08 | Outpatient (CLI) | payer OTHER, MEDICARE ==
[~2017-12-19 11:08] MED LIST changes: -LIDOCAINE 1% MDV 20ML VIAL As Ordered; -LIDOCAINE VISCOUS 2% SOLN 15ML UDC As Ordered; -LIDOCAINE W/EPINEPHRINE 1% 20ML VIAL As Ordered; +SODIUM CHLORIDE 0.9% INJ 10 ML SYR IV
[2017-12-19] MEDS: ACETAMINOPHEN TAB 650MG DOSE (2X325MG) PO (12:00)
[2017-12-19] MEDS: diphenhydrAMINE 25 MG CAP PO (12:00)
[2017-12-19] MEDS: IMMUNE GLOBULIN 10% 20GM 200ML 20 GM in APPROPRIATE DILUENT 1 EA IV (12:13)
[2017-12-19] MEDS: IMMUNE GLOBULIN 10% 10GM 100ML 10 GM in APPROPRIATE DILUENT 1 EA IV (12:15)
== END 2017-12-19 16:00 | disposition home or self-care (01) ==
LOC: M INFU 11:08
DX: C90.00 Multiple myeloma not having achieved remission (principal); F41.9 Anxiety disorder, unspecified; Z79.82 Long term (current) use of aspirin; Z79.891 Long term (current) use of opiate analgesic; Z79.899 Other long term (current) drug therapy; Z88.8 Allergy status to other drugs, medicaments and biological substances; Z87.442 Personal history of urinary calculi; N19 Unspecified kidney failure
CPT/HCPCS: J1569

== ENCOUNTER → 2017-12-23 | Outpatient (REF) | payer OTHER, MEDICARE ==
[2017-12-23 18:41] LABS: IMMUNOGLOBULIN G 1340 MG/DL (681-1648); TOTAL PROTEIN 7.1 GM/DL (6.4-8.2)
[2017-12-23 19:26] LABS: IMMUNOGLOBULIN A 18.3 MG/DL (70-400); IMMUNOGLOBULIN M < 5.3 MG/DL (40-230)
[2017-12-25 13:07] LABS: ALBUMIN % 53.9 % (55.8-66.1); ALPHA-1-GLOBULIN % 5.3 % (2.9-4.9); ALPHA-2-GLOBULINS % 8.4 % (7.1-11.8); BETA-1-GLOBULINS % 5.7 % (4.7-7.2); BETA-2-GLOBULINS % 3.9 % (3.2-6.5); GAMMA GLOBULIN % 22.8 % (11.1-18.8)
[2017-12-25 13:08] LABS: ALBUMIN 3.83 GM/DL (3.29-5.55); ALPHA-1-GLOBULINS 0.38 GM/DL (0.17-0.41); BETA-2-GLOBULINS 0.28 GM/DL (0.19-0.55); GAMMA GLOBULINS 1.62 GM/DL (0.65-1.58)
== END ==
LOC: M LAB REF 17:15
DX: C90.00 Multiple myeloma not having achieved remission (principal)

== ENCOUNTER → 2017-12-24 | Outpatient (REF) | payer OTHER, MEDICARE | LOC: M LAB REF 13:10 | DX: C90.00 Multiple myeloma not having achieved remission (principal) | CPT/HCPCS: 86900 ==

== ENCOUNTER → 2018-01-14 | Outpatient (REF) | payer OTHER, MEDICARE ==
[2018-01-15 08:43] LABS: TOTAL PROTEIN 6.6 GM/DL (6.4-8.2)
[2018-01-15 11:07] LABS: ALBUMIN 3.83 GM/DL (3.29-5.55); ALBUMIN % 58.1 % (55.8-66.1); ALPHA-1-GLOBULIN % 5.8 % (2.9-4.9); ALPHA-1-GLOBULINS 0.38 GM/DL (0.17-0.41); ALPHA-2-GLOBULINS 0.77 GM/DL (0.42-0.99); ALPHA-2-GLOBULINS % 11.7 % (7.1-11.8); BETA-1-GLOBULINS 0.38 GM/DL (0.28-0.60); BETA-1-GLOBULINS % 5.8 % (4.7-7.2); BETA-2-GLOBULINS 0.27 GM/DL (0.19-0.55); BETA-2-GLOBULINS % 4.1 % (3.2-6.5); GAMMA GLOBULIN % 14.5 % (11.1-18.8); GAMMA GLOBULINS 0.96 GM/DL (0.65-1.58)
[2018-01-17 00:06] LABS: FREE KAPPA LIGHT CHAINS SERUM 1.9 mg/L (3.3-19.4); FREE LAMBDA LIGHT CHAINS SERUM 391.6 mg/L (5.7-26.3)
== END ==
LOC: M LAB REF 13:20
DX: C90.00 Multiple myeloma not having achieved remission (principal)

== ENCOUNTER 2018-01-24 08:43 | Outpatient (CLI) | payer OTHER, MEDICARE ==
[2018-01-24] MEDS: diphenhydrAMINE 25 MG CAP PO (07:00)
[2018-01-24] MEDS: IMMUNE GLOBULIN 10% 20GM 200ML 20 GM in APPROPRIATE DILUENT 1 EA IV (08:58)
[2018-01-24] MEDS: IMMUNE GLOBULIN 10% 10GM 100ML 10 GM in APPROPRIATE DILUENT 1 EA IV (08:59)
[2018-01-24] MEDS: ACETAMINOPHEN TAB 650MG DOSE (2X325MG) PO (09:01)
== END 2018-01-24 12:45 | disposition home or self-care (01) ==
LOC: M INFU 08:43
DX: C90.00 Multiple myeloma not having achieved remission (principal); F41.9 Anxiety disorder, unspecified; Z79.82 Long term (current) use of aspirin; Z79.899 Other long term (current) drug therapy; Z79.891 Long term (current) use of opiate analgesic; Z88.8 Allergy status to other drugs, medicaments and biological substances
CPT/HCPCS: J1569

== ENCOUNTER → 2018-01-28 | Outpatient (CLI) | payer OTHER, MEDICARE | LOC: M RAD 15:32 | DX: I73.9 Peripheral vascular disease, unspecified (principal); M89.8X8 Other specified disorders of bone, other site; S09.90XD Unspecified injury of head, subsequent encounter; W19.XXXD Unspecified fall, subsequent encounter | CPT/HCPCS: 70450 ==